=== PATIENT | male | born 1945 | race Caucasian/White ===

== ENCOUNTER 2019-03-15 10:09 | Observation (INO) | payer OTHER ==
--- OUTSIDE RECORDS SUMMARY | 2019-03-15 10:12 | XMS REPORT ---
:1945 [facility] Address [address] [place] [address] [address]. [address] [place] [address] Care Team Providers Name Role Phone HENRIQUE JIMENEZ Unavailable Unavailable Problems This patient has no known problems. Allergies, Adverse Reactions, Alerts This patient has no known allergies or adverse reactions. Medications This patient has no known medications. Encounters Start End Encounter Admission Attending Care Care Encounter Date/Time Date/Time Type Type Clinicians Facility Department ID 2018-08-24 2018-08-24 Outpatient [facility] [id number] 15:10:00 15:10:00 Results Test Description Test Time Test Comments Text Results Atomic Results Result Comments POCT-GLUCOSE METER 2018-03-26 08:05:00 Test Item Value Reference Range Comments POC-GLUCOSE METER (Ascade) (test 171 mg/dL 70-110 TESTED AT [address] jjzp=[id number]) [facility] [id number] RAD, CHEST, 2 [id number] 12:03:00Reason for Exam:->I73.89FINAL REPORT Chest, PA and lateral. History: I73.89. Comparison: .Discussion: The cardiomediastinal silhouette and pulmonary vasculature are within normal limits. The lungs are clear without evidence of consolidation or effusion. There are no acute osseous abnormalities. The soft tissues are unremarkable. IMPRESSION: No acute cardiopulmonary abnormality. Signed: Elysia Snell Verified Date/Time: 03/09/2018 12:03:03 Reading Location: [address] Radiology Reading Room [id number] 11:34:00 Test Item Value Reference Range Comments ACTIVATED CLOTTING TIME 307 sec TESTED AT [facility] [address] (Ascade) (test nrvl=775) [facility] [id number] CBC W/PLT COUNT & AUTO [id number] 07:37:00 Test Item Value Reference Range Comments WHITE BLOOD CELL COUNT (BEAKER) (test kvqc=773) 6.5 K/ L 3.5-10.5 RED BLOOD CELL COUNT (BEAKER) (test mwgo=089) 5.31 M/ L 4.63-6.08 HEMOGLOBIN (BEAKER) (test ckee=062) 14.9 GM/DL 13.7-17.5 HEMATOCRIT (BEAKER) (test yffv=207) 46.4 % 40.1-51.0 MEAN CORPUSCULAR VOLUME (BEAKER) (test pafq=161) 87.4 fL 79.0-92.2 MEAN CORPUSCULAR HEMOGLOBIN (BEAKER) (test 28.1 pg 25.7-32.2 ttef=943) MEAN CORPUSCULAR HEMOGLOBIN CONC (BEAKER) (test 32.1 GM/DL 32.3-36.5 olda=060) RED CELL DISTRIBUTION WIDTH (BEAKER) (test 15.3 % 11.6-14.4 eiyt=539) PLATELET COUNT (BEAKER) (test hnuc=439) 148 K/CU MM 150-450 MEAN PLATELET VOLUME (BEAKER) (test hozt=547) 9.9 fL 9.4-12.4 NUCLEATED RED BLOOD CELLS (BEAKER) (test 0 /100 WBC 0-0 chrw=836) NEUTROPHILS RELATIVE PERCENT (BEAKER) (test 63 % dona=626) LYMPHOCYTES RELATIVE PERCENT (BEAKER) (test 24 % zpuj=397) MONOCYTES RELATIVE PERCENT (BEAKER) (test 8 % klum=915) EOSINOPHILS RELATIVE PERCENT (BEAKER) (test 4 % xtdp=401) BASOPHILS RELATIVE PERCENT (BEAKER) (test 1 % hfkj=286) NEUTROPHILS ABSOLUTE COUNT (BEAKER) (test 4.09 K/ L 1.78-5.38 nfbl=631) LYMPHOCYTES ABSOLUTE COUNT (BEAKER) (test 1.58 K/ L 1.32-3.57 bzav=687) MONOCYTES ABSOLUTE COUNT (BEAKER) (test 0.49 K/ L 0.30-0.82 mchx=065) EOSINOPHILS ABSOLUTE COUNT (BEAKER) (test 0.28 K/ L 0.04-0.54 msob=445) BASOPHILS ABSOLUTE COUNT (BEAKER) (test 0.06 K/ L 0.01-0.08 rfpl=935) IMMATURE GRANULOCYTES-RELATIVE PERCENT (BEAKER) 1 % 0-1 (test qdah=1550) BASIC METABOLIC [id number] 07:29:00 Test Item Value Reference Range Comments SODIUM (BEAKER) (test 140 meq/L 136-145 zdtm=986) POTASSIUM (BEAKER) (test 4.2 meq/L 3.5-5.1 msym=927) CHLORIDE (BEAKER) (test 102 meq/L 98-107 ueqe=871) CO2 (BEAKER) (test 28 meq/L 22-29 uoup=385) BLOOD UREA NITROGEN 19 mg/dL 7-21 (BEAKER) (test daoo=146) CREATININE (BEAKER) (test 1.02 mg/dL 0.57-1.25 ubbx=109) GLUCOSE RANDOM (BEAKER) 117 mg/dL 70-105 (test bgrr=920) CALCIUM (BEAKER) (test 10.0 mg/dL 8.4-10.2 uern=746) EGFR (BEAKER) (test 71 mL/min/1.73 sq m ESTIMATED GFR IS NOT fakt=2776) ACCURATE CREATININE CLEARANCE IN PREDICTING GLOMERULAR FILTRATION RATE. ESTIMATED GFR IS NOT APPLICABLE FOR DIALYSIS PATIENTS. LIPID [id number] 09:48:00 Test Item Value Reference Range Comments TRIGLYCERIDES (BEAKER) (test recn=391) 103 mg/dL CHOLESTEROL (BEAKER) (test wsvd=740) 188 mg/dL HDL CHOLESTEROL (BEAKER) (test hkah=848) 62 mg/dL LDL CHOLESTEROL CALCULATED (BEAKER) (test 105 mg/dL dtcy=675) Triglyceride Reference Range: Low Risk <150 Borderline 150- 199 High Risk 200-499 Very High Risk >=500Cholesterol Reference Range: Low Risk <200 Borderline 200-239 High Risk > 240HDL Cholesterol Reference Range: Low Risk >=60 High Risk <40LDL Cholesterol Reference Range: Optimal <100 Near Optimal 100-129 Borderline 130-159 High 160-189 Very High >=190COMPREHENSIVE METABOLIC [id number] 09:48:00 Test Item Value Reference Range Comments TOTAL PROTEIN (BEAKER) 8.0 gm/dL 6.0-8.3 (test jddr=988) ALBUMIN (BEAKER) (test 4.3 g/dL 3.5-5.0 mphr=6728) ALKALINE PHOSPHATASE 63 U/L 40-150 (BEAKER) (test ytsv=577) BILIRUBIN TOTAL (BEAKER) 0.7 mg/dL 0.2-1.2 (test vqlm=030) SODIUM (BEAKER) (test 139 meq/L 136-145 hwpk=837) POTASSIUM (BEAKER) (test 4.0 meq/L 3.5-5.1 wpyo=508) CHLORIDE (BEAKER) (test 104 meq/L 98-107 gnpf=591) CO2 (BEAKER) (test 23 meq/L 22-29 ldey=079) BLOOD UREA NITROGEN 22 mg/dL 7-21 (BEAKER) (test utim=755) CREATININE (BEAKER) (test 1.10 mg/dL 0.57-1.25 quml=978) GLUCOSE RANDOM (BEAKER) 132 mg/dL 70-105 (test tmrp=272) CALCIUM (BEAKER) (test 9.8 mg/dL 8.4-10.2 fypg=184) AST (SGOT) (BEAKER) (test 13 U/L 5-34 rewz=441) ALT (SGPT) (BEAKER) (test 13 U/L 6-55 xmxs=567) EGFR (BEAKER) (test 66 mL/min/1.73 sq m ESTIMATED GFR IS NOT uqjz=3278) ACCURATE CREATININE CLEARANCE IN PREDICTING GLOMERULAR FILTRATION RATE. ESTIMATED GFR IS NOT APPLICABLE FOR DIALYSIS PATIENTS. RAD, CHEST, 2 [id number] 09:08:00Reason for Exam:->CADReason for Exam:-& gt;HTNReason for Exam:->HLDReason for Exam:->DVTReason for Exam:-> MRReason for Exam:->ABN EKGReason for Exam:->[id number] REPORT Chest, two views HISTORY: Cardiac disease COMPARISON: 01/03/2016 DISCUSSION: Lungs are grossly clear without focal consolidation. Linear atelectasis at the left lung base. Cardiomediastinal silhouette is unchanged from prior examination. Mild tortuosity and ectasia of the thoracic aorta. Degenerative changes in the spine. No pleural effusion or pneumothorax. Visualized portions of the upper abdomen are unremarkable. IMPRESSION: No significant interval change. No acute cardiopulmonary abnormality. Signed: Scott Pearce MDReport Verified Date/Time: 01/15/2017 09:08:07 Reading Location: [address] Radiology Reading Room CBC W/PLT COUNT & AUTO [id number] 08:51:00 Test Item Value Reference Range Comments WHITE BLOOD CELL COUNT (BEAKER) (test wdet=694) 6.8 K/ L 3.5-10.5 RED BLOOD CELL COUNT (BEAKER) (test utkg=185) 5.44 M/ L 4.63-6.08 HEMOGLOBIN (BEAKER) (test yqzt=332) 15.3 GM/DL 13.7-17.5 HEMATOCRIT (BEAKER) (test oijy=258) 48.0 % 40.1-51.0 MEAN CORPUSCULAR VOLUME (BEAKER) (test ndya=473) 88.2 fL 79.0-92.2 MEAN CORPUSCULAR HEMOGLOBIN (BEAKER) (test 28.1 pg 25.7-32.2 uxrn=364) MEAN CORPUSCULAR HEMOGLOBIN CONC (BEAKER) (test 31.9 GM/DL 32.3-36.5 wnhc=304) RED CELL DISTRIBUTION WIDTH (BEAKER) (test 15.9 % 11.6-14.4 jnnm=173) PLATELET COUNT (BEAKER) (test uqgz=438) 168 K/CU MM 150-450 MEAN PLATELET VOLUME (BEAKER) (test ngcv=583) 9.8 fL 9.4-12.4 NUCLEATED RED BLOOD CELLS (BEAKER) (test 0 /100 WBC 0-0 aqka=632) NEUTROPHILS RELATIVE PERCENT (BEAKER) (test 69 % wjud=995) LYMPHOCYTES RELATIVE PERCENT (BEAKER) (test 22 % uqhg=611) MONOCYTES RELATIVE PERCENT (BEAKER) (test 7 % jqjd=618) EOSINOPHILS RELATIVE PERCENT (BEAKER) (test 2 % kale=971) BASOPHILS RELATIVE PERCENT (BEAKER) (test 1 % xalu=573) NEUTROPHILS ABSOLUTE COUNT (BEAKER) (test 4.65 K/ L 1.78-5.38 jccj=207) LYMPHOCYTES ABSOLUTE COUNT (BEAKER) (test 1.50 K/ L 1.32-3.57 gple=141) MONOCYTES ABSOLUTE COUNT (BEAKER) (test 0.44 K/ L 0.30-0.82 mbwn=699) EOSINOPHILS ABSOLUTE COUNT (BEAKER) (test 0.11 K/ L 0.04-0.54 roos=540) BASOPHILS ABSOLUTE COUNT (BEAKER) (test 0.04 K/ L 0.01-0.08 hjma=854) IMMATURE GRANULOCYTES-RELATIVE PERCENT (BEAKER) 0 % 0-1 (test supk=9518)
[2019-03-15] MEDS ORDERED: GLUCAGON 1 MG/VIAL ONE ×2 (11:17→12:43)
[2019-03-15 11:40] LABS: Absolute Lymphocytes (CBC) 1.6 K/uL (0.7-4.9); Basophils % 0.8 % (0-1.3); Hematocrit 42.5 % (39.6-49.0); Lymphocytes % 25.2 % (15.3-44.8); MPV 8.8 fL (7.6-11.3); RBC Red Blood Cell Count 4.92 M/uL (4.33-5.43)
--- NOTE | 2019-03-15 14:10 | EDPHYS ---
Physician Documentation [facility] Name: John Perez Age: 74 yrs Sex: Male : 1945 Arrival Date: 03/15/2019 Time: 10:10 Bed 4 Private MD: Americo Cabral V ED Physician Alex Tucker HPI: 03/15 12:38 This 74 yrs old Male presents to ER via Ambulatory with complaints of Foreign jr8 Body In Throat - roast. 12:38 The patient or guardian reports the patient has a suspected foreign body, that has been jr8 ingested. The reported likely foreign body is piece of meat. Onset: The symptoms/episode began/occurred acutely, last night. Current symptoms: pain, in the chest. Treatment Prior to Arrival: none. The patient has experienced a previous episode. The patient has not recently seen a physician. Patient stated that he has some roast last night. Stated that he felt a piece get stuck. Unable to get it to go down. Cannot keep food or water down. Has had this once before but was able to pass it . Historical: - Allergies: 10:29 No Known Allergies; la1 - PMHx: 10:29 Diabetes - NIDDM; Hypertension; macular degeneration; Myocardial infarction; la1 - Immunization history:: Adult Immunizations up to date. - Social history:: Smoking status: Patient/guardian denies using tobacco. - Ebola Screening: : No symptoms or risks identified at this time. ROS: 12:38 Eyes: Negative for injury, pain, redness, and discharge, ENT: Negative for injury, jr8 pain, and discharge, Neck: Negative for injury, pain, and swelling, Cardiovascular: Negative for chest pain, palpitations, and edema, Respiratory: Negative for shortness of breath, cough, wheezing, and pleuritic chest pain, Abdomen/GI: Negative for abdominal pain, nausea, vomiting, diarrhea, and constipation, Back: Negative for injury and pain, MS/Extremity: Negative for injury and deformity, Skin: Negative for injury, rash, and discoloration, Neuro: Negative for headache, weakness, numbness, tingling, and seizure. Exam: 12:38 Eyes: Pupils equal round and reactive to light, extra-ocular motions intact. Lids and jr8 lashes normal. Conjunctiva and sclera are non-icteric and not injected. Cornea within normal limits. Periorbital areas with no swelling, redness, or edema. ENT: Nares patent. No nasal discharge, no septal abnormalities noted. Tympanic membranes are normal and external auditory canals are clear. Oropharynx with no redness, swelling, or masses, exudates, or evidence of obstruction, uvula midline. Mucous membranes moist. Neck: Trachea midline, no thyromegaly or masses palpated, and no cervical lymphadenopathy. Supple, full range of motion without nuchal rigidity, or vertebral point tenderness. No Meningismus. Cardiovascular: Regular rate and rhythm with a normal S1 and S2. No gallops, murmurs, or rubs. Normal PMI, no JVD. No pulse deficits. Respiratory: Lungs have equal breath sounds bilaterally, clear to auscultation and percussion. No rales, rhonchi or wheezes noted. No increased work of breathing, no retractions or nasal flaring. Abdomen/GI: Soft, non-tender, with normal bowel sounds. No distension or tympany. No guarding or rebound. No evidence of tenderness throughout. Back: No spinal tenderness. No costovertebral tenderness. Full range of motion. Skin: Warm, dry with normal turgor. Normal color with no rashes, no lesions, and no evidence of cellulitis. MS/ Extremity: Pulses equal, no cyanosis. Neurovascular intact. Full, normal range of motion. Neuro: Awake and alert, GCS 15, oriented to person, place, time, and situation. Cranial nerves II-XII grossly intact. Motor strength 5/5 in all extremities. Sensory grossly intact. Cerebellar exam normal. Normal gait. Vital Signs: 10:29 BP 143 / 68; Pulse 90; Resp 16; Temp 97.3; Pulse Ox 100% on R/A; Weight 136.08 kg; la1 Height 6 ft. 3 in. (190.50 cm); 11:52 BP 114 / 51; Pulse 87; Resp 17; Pulse Ox 96% on R/A; tw2 12:46 BP 116 / 67; Pulse 71; Resp 17; Pulse Ox 98% on R/A; tw2 13:45 BP 115 / 53; Pulse 73; Resp 17; Pulse Ox 98% on R/A; tw2 14:50 BP 128 / 73; Pulse 77; Resp 17; Pulse Ox 98% on R/A; tw2 17:49 BP 122 / 68; Pulse 68; Resp 18; Pulse Ox 97% on R/A; rv 10:29 Body Mass Index 37.50 (136.08 kg, 190.50 cm) la1 MDM: 11:09 Patient medically screened. [facility] 14:08 Data reviewed: vital signs, nurses notes, lab test result(s), EKG, radiologic studies, [facility] plain films. Data interpreted: Pulse oximetry: on room air is 98 %. Interpretation: normal. Counseling: I had a detailed discussion with the patient and/or guardian regarding: the historical points, exam findings, and any diagnostic results supporting the discharge/admit diagnosis, lab results, radiology results, the need for further work-up and treatment in the hospital. ED course: Dr. Kirkland accepted patient for consult and would do EGD in the AM . 03/15 11:12 Order name: CBC with Diff; Complete Time: 11:40 [facility] 03/15 11:12 Order name: Basic Metabolic Panel; Complete Time: 12:02 [facility] 03/15 14:38 Order name: XRAY Chest (1 view); Complete Time: 15:23 [facility] 03/15 11:12 Order name: IV; Complete Time: 11:24 [facility] 03/15 14:38 Order name: EKG; Complete Time: 14:39 [facility] 03/15 14:38 Order name: EKG - Nurse/Tech; Complete Time: 15:01 [facility] 03/15 15:50 Order name: CONS Physician Consult EDMS Administered Medications: 11:26 Drug: Glucagon 1 mg Route: IVP; Site: right forearm; tw2 12:42 Follow up: Response: No adverse reaction; No change in condition tw2 12:45 Drug: Glucagon 1 mg Route: IVP; Site: right forearm; tw2 15:02 Follow up: Response: No adverse reaction; No change in condition tw2 15:30 Drug: fentaNYL (PF) 50 mcg Route: IVP; Site: left forearm; tw2 Disposition: 18:21 Co-signature as Attending Physician, Alex Tucker MD Did not see or evaluate patient. ps1 Signing chart for administrative purposes. Not an endorsement of care provided. . Disposition: 03/15/19 14:09 Hospitalization ordered by Americo Cabral for Observation. Preliminary diagnosis is Foreign body in esophagus. - Bed requested for Telemetry/MedSurg (observation). - Status is Observation. rv - Condition is Stable. - Problem is new. - Symptoms are unchanged. UTI on Admission? No Signatures: Dispatcher [employer] EDMS Juliana Francisco, RN RN dw Tiffanie Sparks RN RN ss Dejuan Lee, LETTY PA jr8 Ramses Werner, RN RN la1 Veronica Monk, RN RN tw2 Nadira Raphael RN RN jl7 Alex Tucker MD MD ps1 Keaton Ambrosio, RN RN rv Corrections: (The following items were deleted from the chart) 17:32 14:09 Hospitalization Ordered by Americo Cabral MD for Observation. Preliminary diagnosis dw is Foreign body in esophagus. Bed requested for Telemetry/MedSurg (observation). Status is Observation. Condition is Stable. Problem is new. Symptoms are unchanged. UTI on Admission? No. jr8 17:32 17:32 03/15/2019 14:09 Hospitalization Ordered by Americo Cabral MD for Observation. ss Preliminary diagnosis is Foreign body in esophagus. Bed requested for Telemetry/MedSurg (observation). Status is Observation. Condition is Stable. Problem is new. Symptoms are unchanged. UTI on Admission? No. dw 17:50 17:32 03/15/2019 14:09 Hospitalization Ordered by Americo Cabral MD for Observation. rv Preliminary diagnosis is Foreign body in esophagus. Bed requested for Telemetry/MedSurg (observation). Status is Observation. Condition is Stable. Problem is new. Symptoms are unchanged. UTI on Admission? No. ss
--- NOTE | 2019-03-15 14:10 | ER ---
Nurse's Notes [facility] Name: John Perez Age: 74 yrs Sex: Male : 1945 Arrival Date: 03/15/2019 Time: 10:10 Bed 4 Private MD: Americo Cabral V Diagnosis: Foreign body in esophagus Presentation: 03/15 10:27 Presenting complaint: Patient states: I have had a piece of roast stuck in my throat la1 since yesterday, I can drink water but barely. Transition of care: patient was not received from another setting of care. Onset of symptoms was March 15, 2019. Risk Assessment: Do you want to hurt yourself or someone else? Patient reports no desire to harm self or others. Initial Sepsis Screen: Does the patient meet any 2 criteria? No. Patient's initial sepsis screen is negative. Does the patient have a suspected source of infection? No. Patient's initial sepsis screen is negative. Care prior to arrival: None. 10:27 Method Of Arrival: Ambulatory la1 10:27 Acuity: ZULEMA 3 la1 Historical: - Allergies: 10:29 No Known Allergies; la1 - PMHx: 10:29 Diabetes - NIDDM; Hypertension; macular degeneration; Myocardial infarction; la1 - Immunization history:: Adult Immunizations up to date. - Social history:: Smoking status: Patient/guardian denies using tobacco. - Ebola Screening: : No symptoms or risks identified at this time. Screenin:01 Abuse screen: Denies threats or abuse. Nutritional screening: No deficits noted. tw2 Tuberculosis screening: No symptoms or risk factors identified. Fall Risk None identified. Assessment: 11:07 General: Appears in no apparent distress. obese, well groomed, Behavior is calm, tw2 cooperative, appropriate for age. Pain: Denies pain. Neuro: Level of Consciousness is awake, alert, obeys commands, Oriented to person, place, time, situation. Cardiovascular: Heart tones S1 S2 Patient's skin is warm and dry. Respiratory: Airway is patent Respiratory effort is even, unlabored, Respiratory pattern is regular, symmetrical. GI: Abdomen is round non-distended, obese, Bowel sounds present X 4 quads. : No signs and/or symptoms were reported regarding the genitourinary system. EENT: Reports difficulty swallowing "1 days now this roast is stuck in my throat and i can barely get my pills down". Derm: No signs and/or symptoms reported regarding the dermatologic system. Musculoskeletal: Range of motion: intact in all extremities. 11:09 Reassessment: provider at bedside at this time. tw2 11:52 Reassessment: Patient appears in no apparent distress at this time. Patient and/or tw2 family updated on plan of care and expected duration. Pain level reassessed. Patient is alert, oriented x 3, equal unlabored respirations, skin warm/dry/pink. 12:46 Reassessment: No changes from previously documented assessment. Patient and/or family tw2 updated on plan of care and expected duration. Pain level reassessed. Patient is alert, oriented x 3, equal unlabored respirations, skin warm/dry/pink. 13:44 Reassessment: Patient appears in no apparent distress at this time. No changes from tw2 previously documented assessment. Patient and/or family updated on plan of care and expected duration. Pain level reassessed. Patient is alert, oriented x 3, equal unlabored respirations, skin warm/dry/pink. 14:50 Reassessment: Patient appears in no apparent distress at this time. No changes from tw2 previously documented assessment. Patient and/or family updated on plan of care and expected duration. Pain level reassessed. Patient is alert, oriented x 3, equal unlabored respirations, skin warm/dry/pink. 15:21 Reassessment: Patient appears in no apparent distress at this time. No changes from tw2 previously documented assessment. Patient and/or family updated on plan of care and expected duration. Pain level reassessed. Patient is alert, oriented x 3, equal unlabored respirations, skin warm/dry/pink. 15:32 Reassessment: Pt c/o increased epigastric pain, ERP notified, see MAR for orders. jl7 17:33 Reassessment: nurse unavailable to take report at this time. Vital Signs: 10:29 BP 143 / 68; Pulse 90; Resp 16; Temp 97.3; Pulse Ox 100% on R/A; Weight 136.08 kg; la1 Height 6 ft. 3 in. (190.50 cm); 11:52 BP 114 / 51; Pulse 87; Resp 17; Pulse Ox 96% on R/A; tw2 12:46 BP 116 / 67; Pulse 71; Resp 17; Pulse Ox 98% on R/A; tw2 13:45 BP 115 / 53; Pulse 73; Resp 17; Pulse Ox 98% on R/A; tw2 14:50 BP 128 / 73; Pulse 77; Resp 17; Pulse Ox 98% on R/A; tw2 17:49 BP 122 / 68; Pulse 68; Resp 18; Pulse Ox 97% on R/A; rv 10:29 Body Mass Index 37.50 (136.08 kg, 190.50 cm) la1 ED Course: 10:10 Patient arrived in ED. as 10:11 Americo Cabral MD is Private Physician. as 10:28 Triage completed. la1 10:29 Arm band placed on right wrist. la1 10:53 Dejuan Lee PA is PHCP. jr8 10:54 Alex Tucker MD is Attending Physician. jr8 11:01 Veronica Monk, MERCEDES is Primary Nurse. tw2 11:01 Bed in low position. Call light in reach. tw2 11:25 Inserted saline lock: 22 gauge in right forearm, using aseptic technique. Blood tw2 collected. 13:19 IV discontinued, intact, bleeding controlled, No redness/swelling at site. Pressure tw2 dressing applied, pt requested IV discontinued at this time. 14:08 Americo Cabral MD is Hospitalizing Provider. jr8 14:58 XRAY Chest (1 view) In Process Unspecified. EDMS 15:01 Missed attempt(s): 22 gauge in left forearm. Bleeding controlled, band aid applied, tw2 catheter tip intact. Missed attempt(s): 22 gauge in left antecubital area. Bleeding controlled, band aid applied, catheter tip intact. Missed attempt(s): 22 gauge in left antecubital area. Bleeding controlled, band aid applied, catheter tip intact. 15:05 EKG done, by two way radio technician. reviewed by Dejuan SAENZ. sm3 15:15 Missed attempt(s): 22 gauge in left wrist. Bleeding controlled, band aid applied, jl7 catheter tip intact. 15:20 Missed attempt(s): 20 gauge in right wrist. Bleeding controlled, band aid applied, jl7 catheter tip intact. 15:25 Inserted saline lock: 22 gauge in left forearm, using aseptic technique. jl7 16:17 Report given to MERCEDES Waddell. tw2 17:50 No provider procedures requiring assistance completed. Patient admitted, IV remains in rv place. Administered Medications: 11:26 Drug: Glucagon 1 mg Route: IVP; Site: right forearm; tw2 12:42 Follow up: Response: No adverse reaction; No change in condition tw2 12:45 Drug: Glucagon 1 mg Route: IVP; Site: right forearm; tw2 15:02 Follow up: Response: No adverse reaction; No change in condition tw2 15:30 Drug: fentaNYL (PF) 50 mcg Route: IVP; Site: left forearm; tw2 Outcome: 14:09 Decision to Hospitalize by Provider. jr8 17:50 Admitted to Tele accompanied by tech, room 406, with chart, Report called to VIVIEN LONG rv 17:50 Condition: good 17:50 Discharge instructions given to patient, family, Instructed on the need for admit. 17:50 Patient left the ED. rv Signatures: Dispatcher [employer] EDMS Sheyla Jacques Shelby, RN RN Dejuan Caro PA PA jr8 Ramses Werner RN RN la1 Veronica Monk RN RN tw2 Nadira Raphael RN RN jl7 Lashawn Chávez 3 Keaton Ambrosio, RN RN rv Corrections: (The following items were deleted from the chart) 11:10 11:07 EENT: Reports difficulty swallowing "2 days now this roast is stuck in my throat tw2 and i can barely get my pills down" tw2
--- NOTE | 2019-03-15 15:10 | RAD REPORT ---
EXAM DESCRIPTION: RAD - Chest Single View - 03/15/2019 2:58 pm CLINICAL HISTORY: pre op Chest pain. COMPARISON: CHEST PA AND LAT 2 VIEW dated 03/06/2010 FINDINGS: Portable technique limits examination quality. The lungs are grossly clear. The heart is normal in size. No displaced fractures. IMPRESSION: No acute intrathoracic process suspected.
[2019-03-15] MEDS ORDERED: FENTANYL CITR 100 MCG/2 ML ONE (15:30)
--- NOTE | 2019-03-15 16:28 | EKG ---
Test Date: 2019-03-15 Test Time: 15:00:50 Welfare Officer: ARACELI MEASUREMENT RESULTS: Intervals: Rate: 74 DE: 172 QRSD: 108 QT: 392 QTc: 435 [place]: P: 25 DE: 172 QRS: 27 T: 22 INTERPRETIVE STATEMENTS: Normal sinus rhythm Inferior infarct, age undetermined Cannot rule out Anterior infarct, age undetermined Abnormal ECG Compared to ECG 03/06/2010 11:25:18 Ventricular premature complex(es) no longer present Myocardial infarct finding still present Electronically Signed On 03-15-19 16:27:46 PAPER SUPERVISOR by Horacio Kilgore
[2019-03-15] MEDS ORDERED: MORPHINE 2 MG/ML SYR IV PRN (18:29)
[2019-03-15] MEDS ORDERED: ONDANSETRON 4 MG/2 ML VIAL IV PRN (18:29)
[2019-03-15] MEDS ORDERED: NA CHLORIDE 0.9% 1,000 ML IV SCH (18:29)
--- NOTE | 2019-03-15 18:41 | P.SSS ---
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 HE HAD HAD PVD AND STENTS. HE ATE BEEF ROAST AND IT IS STUCK IN ESOPHAGUS. DR. RECINOS WILL DO PROCEDURE TO REMOVE BEEF AFTER DR. WRIGHT SEES HIM AND CERTIFIES CLEARANCE. Allergies No Known Allergies Allergy (Verified 03/15/19 18:20) Home Medications: Aspirin [Aspirin EC 81 MG] 81 mg PO DAILY 03/15/19 Finasteride [Proscar*] 5 mg PO DAILY 03/15/19 Lisinopril 10 mg PO DAILY 03/15/19 Metformin ER [Glucophage ER] 1,000 mg PO BIDWM 03/15/19 Metoprolol Tartrate [Lopressor] 25 mg PO DAILY 03/15/19 Pravastatin Sodium 80 mg PO DAILY AT SUPPER 03/15/19 Rivaroxaban [Xarelto] 20 mg PO DAILY 03/15/19 Vit C/E/Zn/Coppr/Lutein/Zeaxan [Preservision Areds 2 Softgel] 1 each PO BID Review of Systems 10-point ROS is otherwise unremarkable Physical Examination - Physical Exam General: Alert, In no apparent distress, Obese HEENT: Atraumatic, PERRLA, Mucous membr. moist/pink, EOMI, Sclerae nonicteric Neck: Supple, 2+ carotid pulse no bruit, No LAD, Without JVD or thyroid abnormality Respiratory: Clear to auscultation bilaterally, Normal air movement Cardiovascular: Regular rate/rhythm, Normal S1 S2 Gastrointestinal: Normal bowel sounds, No tenderness Musculoskeletal: No tenderness Integumentary: No rashes Neurological: Normal gait, Normal speech, Normal strength at 5/5 x4 extr, Normal tone, Normal affect Lymphatics: No axilla or inguinal lymphadenopathy - Studies Laboratory Data (last 24 hrs) 03/15/19 11:25: Sodium 138, Potassium 4.0, BUN 19 H, Creatinine 1.11, Glucose 133 H 03/15/19 11:25: WBC 6.5, Hgb 14.8, Hct 42.5, Plt Count 135 L - Diagnosis (Problem(s)) (1) Esophageal foreign body Current Visit: Yes Status: Acute Plan: DR RECINOS NEEDS CARDIOLOGY CLEARANCE. HE IS MEDICALLY STABLE WITH MILD RISK. THIS IS AN OUTPATIENT PROCEDRUE. WE HAD TO ADMIT HIM. IV FLUIDS GENTLE Qualifiers: Encounter type: initial encounter Qualified Code(s): T18.108A - Unspecified foreign body in esophagus causing other injury, initial encounter - Disposition Disposition: ROUTINE DISCHARGE
[2019-03-15 18:58] VITALS: BMI 36.3
[2019-03-15] MEDS: NACHLORIDE 0.45% 1,000 ML IV SCH (19:15)
[2019-03-15] MEDS: ATORVASTATIN 10 MG TAB PO SCH ×2 (21:00→21:47)
[2019-03-15] MEDS ORDERED: D50W 25 GM/50 ML SYRINGE/VIAL IV PRN (21:13)
[2019-03-15] MEDS ORDERED: GLUCAGON 1 MG/VIAL IM PRN (21:13)
[2019-03-15] MEDS: METOPROLOL TARTRATE 5 MG/5 ML INJ IV SCH (21:30)
[2019-03-15 22:38] LABS: Urine Appearance CLEAR; Urine Bilirubin NEGATIVE (NEG); Urine Blood NEGATIVE (NEG); Urine Color YELLOW; Urine Glucose NEGATIVE (NEG); Urine Protein NEGATIVE (NEG)
[2019-03-15 22:40] LABS: Urine Microscopic Reflex ORDER UMIC
[2019-03-15 23:52] LABS: Urine Culture Reflex Order REFLEXED
[2019-03-15 23:54] LABS: Urine Bacteria <20 /HPF (NONE SEEN); Urine RBC <5 /HPF (NONE SEEN); Urine Urothelial Cells <5 /HPF (NONE SEEN)
[2019-03-16 04:42] LABS: Basophils % 0.8 % (0-1.3); Hematocrit 45.4 % (39.6-49.0); Lymphocytes % 34.8 % (15.3-44.8); MPV 8.5 fL (7.6-11.3); RBC Red Blood Cell Count 5.19 M/uL (4.33-5.43)
[2019-03-16] MEDS: METOPROLOL TARTRATE 5 MG/5 ML INJ IV SCH ×3 (04:45→16:30)
[2019-03-16 04:59] LABS: Potassium 3.9 mmol/L (3.5-5.1)
[2019-03-16] MEDS: INSULIN -REGULAR HUMAN 50 UNIT/0.5 ML ML IV SCH ×3 (07:30→16:30)
[2019-03-16] MEDS: METFORMIN ER 500 MG TAB PO SCH ×2 (08:00→17:00)
[2019-03-16] MEDS ORDERED: ASPIRIN EC 81 MG TAB PO SCH (09:00)
[2019-03-16] MEDS ORDERED: FINASTERIDE 5 MG TAB PO SCH (09:00)
[2019-03-16] MEDS ORDERED: lisinopriL 10 MG TAB PO SCH (09:00)
[2019-03-16] MEDS ORDERED: METOPROLOL TAR 25 MG TAB PO SCH (09:00)
--- NOTE | 2019-03-16 12:35 | CON ---
Date of Consultation: 03/16/[address] Cabral on 03/15/2019. I saw the patient on 03/16/2019. Reason For Consultation: For cardiac clearance for an endoscopy to remove the foreign body from the esophagus. History Of Present Illness: Mr. Perez is 74. Has a history of diabetes, hypertension, chronic a trial fibrillation. Has a history of CAD. He sees in [place] for that. He recently had a negative stress test, negative echo. He has no cardiac symptoms at this point. Came in with a foreign body, was actually a piece of that was stuck in his esophagus. Endoscopy is plan isacc today. Xarelto has been held. No cardiac complaints. Past Medical History: As stated above. Allergies: NONE. Review of Systems: Negative. Social History: Negative. Family History: Negative. Medications: Include aspirin, , metoprolol, Xarelto, lisinopril, metformin, and Proscar. Physical Examination: General: He weighed 190 pounds. No acute distress. Vital Signs: Stable. Afebrile. Sinus rhythm. HEENT: Negative. Neck: Supple with no bruit. Chest: Clear to auscultation and percussion. Cardiac: Revealed a regular rhythm and rate. No murmurs, gallops, or rubs. Abdomen: Benign. Extremities: Revealed no clubbing, cyanosis, or edema. Diagnostic Data: All within normal limits. His EKG showed possible old MO. Chest x-ray is negative . Troponin is negative. Impression And Plan: 1.Patient with foreign body, specifically a piece of stuck in his esophagus needing an en doscopy. Xarelto has been held. Has no cardiac symptoms. EKG showed no acute changes. No clinical evidence of coronary artery disease or congestive heart failure by exam or history. He is cleared f or his endoscopy. 2.History of diabetes, well controlled. 3.History of hypertension, well controlled. 4.History of atrial fibrillation, well controlled on metoprolol and Xarelto. 5.History of coronary artery disease that is stable. I will continue to follow Mr. Perez pregine. The case was discussed with Dr. Cabral. NB/FARHEEN Voice ID: [id number] Report ID: [id number]
[2019-03-16] MEDS: NACHLORIDE 0.45% 1,000 ML IV SCH (15:00)
[2019-03-16] MEDS ORDERED: RIVAROXABAN 20 MG TABLET PO SCH (17:00)
[2019-03-16] MEDS ORDERED: NA CHLORIDE 0.9% 500 ML ONE (17:34)
[2019-03-16] MEDS ORDERED: PROPOFOL 200 MG/20 ML VIAL IV ONE (18:04)
--- NOTE | 2019-03-16 18:23 | ENDO RPT ---
[address], [address] EGD PROCEDURE REPORT EXAM DATE: 03/16/2019 PATIENT NAME: John Perez MR#: [id number] BIRTHDATE: 1945 ATTENDING: Alexander [address]land Dr STATUS: inpatient [facility] SPECIALIST: Nichole Chow RN and Martita Dahl INDICATIONS: The patient is a 74 yr old Male here for an EGD due to dysphagia PROCEDURE PERFORMED: EGD MEDICATIONS: Per Anesthesia. TOPICAL ANESTHETIC: none CONSENT: The patient understands the risks and benefits of the procedure and understands that these risks include, but are not limited to: sedation, allergic reaction, infection, perforation and/or bleeding. Alternative means of evaluation and treatment include, among others: physical exam, x-rays, and/or surgical intervention. The patient elects to proceed with this endoscopic procedure. DESCRIPTION OF PROCEDURE: During intra-op preparation period all mechanical medical equipment was checked for proper function. Hand hygiene and appropriate measures for infection prevention was taken. Procedure, possible complications, and alternatives including but not limited to the possibility of bleeding, perforation, tear, infection, sepsis, need for surgery, need for blood transfusion, and anesthesia related complications were explained to the patient. After the risks, benefits and alternatives of the procedure were thoroughly explained, Informed consent was verified, confirmed and timeout was successfully executed by the treatment team. The patient was placed in the left lateral position. The patient was anesthetized with topical anesthesia. Through the anesthetized oropharyngeal area, the scope was passed without any difficulty. The [id number] ([id number]) endoscope was introduced through the mouth and advanced to the second portion of the duodenum. Retroflexed views revealed no abnormalities. The gastroscope was then slowly withdrawn and removed. Multiple (2) ulcers were found in the lower esophagus. A mild stricture was found in the lower esophagus, easily passed with endoscope, no food bolus present . ADVERSE EVENTS: There were no complications. esophagus 2. Mild stenosis / stricture in the lower esophagus, easily passed with endoscope, no food bolus present RECOMMENDATIONS: 1. acid suppression therapy 2. follow-up of helicobacter pylori status, treat if indicated REPEAT EXAM: Alexander Kirkland Dr eSigned: Alexander Kirkland Dr 03/16/2019 6:23 PM cc: CPT CODES: ICD9 CODES: PATIENT NAME: Lissettechaucatrina John PrimoRobin MR#: [id number]
[2019-03-16 18:48] VITALS: BP 132/66; TEMP 97.5; O2SAT 93
--- NOTE | 2019-03-17 07:30 | CON ---
Date of Consultation: 03/16/2019 Reason For Consultation: Dysphagia with possible food bolus impaction in esophagus. History Of Present Illness: The patient is a 74-year-old white male with history of diabetes, hypert ension, coronary artery disease, status post VA, status post multiple cardiac stents patient says brigid roximately 10 to 20 atrial fibrillation, obstructive sleep apnea, BPH, obesity and total right knee r eplacement, and macular degeneration. Patient presented to the hospital secondary to possible foreig n body in the esophagus with dysphagia after eating hamburger helper. Said he is at home by himself. His has gone to [place] where his grandchildren are to visit children there. Patient states he was eating a hamburger helper and the food became stuck, could not swallow solids or liquids at that time, came to the emergency room. Patient was given glucagon and other medications, finally was abl e to swallow liquids, admitted to the hospital for further evaluation. Patient reports history of ga stric reflux disease over the past 5 years. He had 1 event of dysphagia approximately 2 years ago, w hich spontaneously resolved in [place], [place]. Past Medical History: Significant for diabetes, hypertension, coronary artery disease, status post m yocardial infarction, atrial fibrillation on Xarelto, multiple cardiac stents patient says 10 to 20, obstructive sleep apnea, benign prostatic hypertrophy, macular degeneration, obesity, total right kne e replacement. Medications: See list. Allergies: NONE. Social History: . He has children, who live in [place]. Tobacco, quit in 1993 with myocardia l infarction. Alcohol; rare now, but heavy in the past, cut down back in 1993. Family History: Father of myocardial infarction. Mother of Parkinson disease. He is orig inally from [facility] [place]. Medications: Include aspirin, metoprolol, Xarelto, lisinopril, metformin, and Proscar. Allergies: NKDA. Review of Systems: Patient has dysphagia to solids, reflux disease. He denies any chest pain, shortness of breath, seiz ure, syncope, lower extremity edema, muscle aches joint aches, backaches, melena, hematochezia, hemat emesis, coffee-ground emesis, hemoptysis, hematuria, dysuria, polydipsia. No depression, anxiety. Physical Examination: Vital Signs: The patient is 6 foot 3 inches and 290 pounds. BMI of 36.3 kg/sq m. Temperature 97.6 degrees Fahrenheit, pulse 90, respirations 18, blood pressure 120/51, O2 saturation 95%. Laboratory Data: Patient has a white count of 8.5, hemoglobin of 15.1, hematocrit 45, MCV of 88, janes telet count of 448, polys of 55%, lymphocytes of 35%, monocytes 8%, eosinophils 2%. Patient has a so dium of 139, potassium 3.9, chloride 103, bicarb of 31, BUN of 18, creatinine of 1.1, glucose 110, ca lcium 9.2. UA; 1+ ketones, 3+ leukocyte esterase, 10 to 50 white blood cells, less than 5 squamous e pithelial cells. No bacteria. Impression: 1.Dysphagia to solids and upper chest with possible esophageal food impaction after eating hamburger helper yesterday, came to the emergency room with dysphagia to solids and liquids, but finally with glucagon therapy, he was able to swallow liquids, but no solids, had 1 of them in approximately 2 yea rs ago in [place], [place], which spontaneously resolved. 2.History of gastroesophageal reflux disease for 5 years. 3.History of diabetes, hypertension, coronary artery disease., status post myocardial infarction, ca rdiac stents 10 to 20, atrial fibrillation, obstructive sleep apnea, benign prostatic hypertrophy, ob esity, and right total knee replacement. Recommendations: 1.To proceed with EGD. 2.Keep patient n.p.o. RADHA/FARHEEN Voice ID: [id number] Report ID: [id number]
== END 2019-03-16 19:15 | disposition home or self-care (01) ==
LOC: ER 10:09 → ERHOLD 15:49 → 4TH 17:42
PROVIDERS: ADMIT Internal Medicine; ATTEND Internal Medicine
PROC: 0DJ08ZZ Inspection of Upper Intestinal Tract, Via Natural or Artificial Opening Endoscopic (ICD-10-PCS; principal; 2019-03-16 18:00)
DX: T18.128A Food in esophagus causing other injury, initial encounter (principal); K22.10 Ulcer of esophagus without bleeding; K22.2 Esophageal obstruction; E11.9 Type 2 diabetes mellitus without complications; I10 Essential (primary) hypertension; I25.10 Atherosclerotic heart disease of native coronary artery without angina pectoris; Z95.5 Presence of coronary angioplasty implant and graft; G47.33 Obstructive sleep apnea (adult) (pediatric); N40.0 Benign prostatic hyperplasia without lower urinary tract symptoms; E66.9 Obesity, unspecified; Z68.36 Body mass index [BMI] 36.0-36.9, adult; Z96.651 Presence of right artificial knee joint; Z79.82 Long term (current) use of aspirin
CPT/HCPCS: 93005; 87088; 85025 ×2; 87086; 80048 ×2; 36415; 82947 ×4; 71045; 94660; 99285; 43235; J2704; J1610 ×2; J3010; J2270; G0378 ×4; J7040; 81003; 81015

== ENCOUNTER 2020-05-04 10:11 | Day surgery (SDC) | payer OTHER ==
--- OUTSIDE RECORDS SUMMARY | 2020-05-04 10:15 | XMS REPORT | Clinical Summary ---
:1945 Author Organization [facility] Address [address] [place] [address] Care Team Providers Name Role Phone Justine Cabral Primary Care Provider Allergies No Known Allergies Medications Medication Sig Dispensed Refills Start Date End Date Status aspirin 81 mg Tab Take by mouth. 0 Active tamsulosin (FLOMAX) Take 0.4 mg by 0 Active 0.4 mg Cp24 24 hr mouth daily. capsule metFORMIN (GLUMETZA) Take 1,000 mg by 0 Active 1000 MG (MOD) 24 hr mouth 2 (two) times tablet daily with breakfast and dinner. finasteride (PROSCAR) Take 5 mg by mouth 0 Active 5 mg tablet daily. pravastatin Take 80 mg by mouth 0 Active (PRAVACHOL) 40 MG daily . tablet torsemide (DEMADEX) Take 10 mg by mouth 0 Active 10 MG tablet daily as needed Has been out of rx last few days . metoprolol Take 25 mg by mouth 0 Active (TOPROL-XL) 25 MG 24 daily. hr tablet lisinopril Take 10 mg by mouth 0 Active (PRINIVIL,ZESTRIL) 20 daily . MG tablet rivaroxaban (XARELTO) Take 20 mg by mouth 0 Active 15 mg Tab tablet daily with dinner . vit Take by mouth 2 0 Acti ve C/E/Zn/coppr/lutein/z (two) times daily. 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 Family History Medical History Relation Name Comments Coronary artery disease Father of AMI postoperatively Lung cancer Maternal Grandfather Parkinsonism Mother Diabetes Sister Relation Name Status Comments Father Maternal Grandfather Mother Sister Social History Tobacco Use Types Packs/Day Years Used Date Former Smoker Smokeless Tobacco: Never Used Comments: Quit 24.5 years ago Alcohol Use Drinks/Week oz/Week Comments No Sex Assigned at Date Recorded Not on file Last Filed Vital Signs Not on file Plan of Treatment Health Maintenance Due Date Last Done Comments PNEUMOCOCCAL 65+ YRS (1 of 1 - [id number]) 01/21/2008 MEDICARE ANNUAL WELLNESS (YEAR 2 or FIRST YEAR if no 2009 IPPE) INFLUENZA VACCINE (#1) 2019 Results Not on fileafter 05/04/2019 Insurance Payer Benefit Plan / Subscriber ID Effective Dates Phone Addre ss Type Group MEDICARE MEDICARE A B [id number] 2008-Prese Medicare nt [facility] [id number] 2010-[facility] t Advance Directives For more information, please contact: [phone] Type Date Recorded Patient E Commerce Marketing Manager Explanati on Advance Directives and Living 02/27/2017 12:00 AM Will Power of Civil Estimator 02/27/2017 12:00 AM Code Status Date Activated Date Inactivated Comments Full Code 03/26/2018 6:30 AM This code status was determined by: Patient Full Code 02/27/2017 6:19 AM 02/27/2017 9:38 PM This code status was determined by: Patient Full Code 01/12/2015 6:08 AM 01/12/2015 8:36 PM This code status was determined by: Patient Code ONE 04/15/2013 7:23 AM 04/15/2013 7:53 PM All poss ible means of support including;cardia c massage, mechanical venti lation, and defibrillation w ill be used to support life.
--- OUTSIDE RECORDS SUMMARY | 2020-05-04 10:15 | XMS REPORT | Continuity of Care Document ---
:1945 Author Organization [facility] t Address [facility] [address]. [address] [place] [address] Care Team Providers Name Role Phone Justine Cabral Primary Care Physician LISA JIMENEZ Attending Clinician Unavailable LISA JIMENEZ Admitting Clinician Unavailable Problems Condition Condition Condition Status Onset Resolution Last Treating Co mments Source Name Details Category Date Date Treatment Clinician Date Chest pain Chest pain Disease Active 2016-[address] 04-29 - 00:00: Medical 00 Center CAD CAD Disease Active 2012-04 Overview: [facility] (coronary (coronary 06-16 [place] - artery artery 00:00: AMI/PCI Medical disease) disease) 00 RCA; Center 02/1994 Stent RCA; 10/2002 Stent LAD; & Mid Circ; 06/2003 Stent x 2 prox RCA & stent distal RCA; 12/2003 Cardiac Cath; 06/2006 stent RCA; 07/2007 stent RCA; 01/2011 stent prox/dist al RCA; 03/01 stent LAD; 01/2012 stent RCA; 03/2012 stent LAD; 04/15/13 3.0x16 mm Promus Premier ISR RCA; 01/12/15 Cardiac Cath: Med Mgmt PAD PAD Disease Active Overview: [facility] (periphera (periphera 01/12/15 L u[place] - l artery l artery Bilateral Med ical disease) disease) LE bolus Cent er jackie: Lutonix 6x80 mm drug coated balloon 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 Family History Family Member Diagnosis Comments Start Date Stop Date Source Natural father Coronary artery [facility] Maternal grandfather Lung cancer [facility] Natural mother Parkinsonism [facility] Natural sister Diabetes [facility] Social History Social Habit Start Date Stop Date Quantity Comments Source Sex Assigned At [facility] Tobacco use and 2018-03-29 2018-03-29 Never used [facility] - exposure 00:00:00 00:00:00 [facility] Alcohol intake 2018-03-29 2018-03-29 Current [facility] - 00:00:00 00:00:00 non-drinker of Medical Ce nter alcohol (finding) Tobacco Comment 2018-03-26 2018-03-26 Quit 24.5 years [facility] 00:00:00 00:00:00 ago [facility] Smoking Status Start Date Stop Date Source Former smoker 2018-03-29 00:00:00 2018-03-29 00:00:00 [facility] Medications Ordered Filled Start Stop Current Ordering Indication Dosage Frequency Signature Comments Components Source Medication Medication Date Date Medication? Clinician (SIG) Name Name aspirin 81 2017-04 Yes Take by [facility] mg Tab 2-06 [facility] - 15:21: Medical 02 [place] tamsulosin 2017-04 Yes .4mg QD Take 0.[address] [facility] (FLOMAX) 2-06 mg by [facility] - 0.4 mg Cp24 15:21: mouth Medic al 24 hr 02 daily. [place] capsule metFORMIN 2017-04 Yes 1000mg Take 1,[address] [facility] (GLUMETZA) 2-06 mg by [facility] - 1000 MG 15:21: mouth 2 Medical (MOD) 24 hr 02 (two) [place] tablet times daily with breakfast and dinner. finasteride 2017-04 Yes 5mg QD Take [address] (PROSCAR) 5 2-06 by mouth Luke s - mg tablet 15:21: daily. Medica l 02 [place] pravastatin 2017-04 Yes 80mg QD Take [address] [facility] (PRAVACHOL) 2-06 by mouth Luke s - 40 MG 15:21: daily . Medical tablet 02 [place] torsemide 2017-04 Yes 10mg Take [address] (DEMADEX) 2-06 by mouth [facility] - 10 MG 15:21: daily as Medical tablet 02 needed Has Center been out of rx last few days . metoprolol 2017-04 Yes 25mg QD Take [address] (TOPROL-XL) 2-06 by mouth Luke s - 25 MG 24 hr 15:21: daily. Medi laurie tablet 02 [place] lisinopril 2017-04 Yes 10mg QD Take [address] (PRINIVIL,Z 2-06 by mouth Luke s - ESTRIL) 20 15:21: daily . Medi laurie MG tablet 02 [place] rivaroxaban 2017-04 Yes 20mg Take [address] [facility] (XARELTO) 2-06 by mouth [facility]ukes - 15 mg Tab 15:21: daily with Me dical tablet 02 dinner . [place] vit 2017-04 Yes Q.5D Take by [facility] C/E/Zn/eris 2-06 mouth 2 [facility] - r/lutein/ze 15:21: (two) Medic al axan 02 times Center (PRESERVISI daily. ON AREDS-2 ORAL) Procedures This patient has no known procedures. Plan of Care Planned Activity Planned Date Details Comments Source Future Scheduled 2019-12-21 INFLUENZA VACCINE (#1) [facility] 00:00:00 [code = INFLUENZA Medical Ce nter VACCINE (#1)] Future Scheduled [address] [facility] - Test 00:00:00 WELLNESS (YEAR 2 or Medical Center FIRST YEAR if no IPPE) [code = MEDICARE ANNUAL WELLNESS (YEAR 2 or FIRST YEAR if no IPPE)] Future Scheduled 2008-01-21 PNEUMOCOCCAL 65+ [facility]RS [facility] - Test 00:00:00 (1 of 1 - Medical Center [id number] PCV13) [code = PNEUMOCOCCAL 65+ YRS (1 of 1 - [id number] PCV13)] Encounters Start End Encounter Admission Attending Care Care Encounter Source Date/Time Date/Time Type Type Clinicians Facility Department ID 2018-08-24 2018-08-24 Outpatient [facility] [id number] [facility] 15:10:00 15:10:00 [place]ia León [facility] l [facility] Results Test Description Test Time Test Comments Results Result Comments Source POCT-GLUCOSE METER 2018-03-26 08:05:00 Test Item Value Reference Range Interpretation Comme nts POC-GLUCOSE METER (MENDY) (test 171 mg/dL 70-110 H TESTED AT [facility] [address] [facility] code = 1538) [place] [address] RAD, CHEST, 2 [id number] 12:03:00Reason for Exam:->I73.89FINAL REPORT Chest, PA and lateral. History: I73.89. Comparison: 01/03/2016.Discussion: The cardiomediastinal silhouette and pulmonary vasculature are within normal limits. The lungs are clear without evidence of consolidation or effusion. There are no acute osseous abnormalities. The soft tissues are unremarkable. IMPRESSION: No acute cardiopulmonary abnormality. Signed: Ludwin Snell MDReport Verified Date/Time: 03/09/2018 12:03:03 Reading Location: [address] Radiology Reading Room [id number] 11:34:00 Test Item Value Reference Range Interpretation Comments ACTIVATED CLOTTING TIME 307 sec TEST ED AT [facility] 6720 (BEAKER) (test code = [place] [address]) [address] CBC W/PLT COUNT & AUTO [id number] 07:37:00 Test Item Value Reference Range Interpretation Comments WHITE BLOOD CELL COUNT (BEAKER) 6.5 K/ L 3.5-10.5 (test code = 775) RED BLOOD CELL COUNT (BEAKER) 5.31 M/ L 4.63-6.08 (test code = 761) HEMOGLOBIN (BEAKER) (test code = 14.9 GM/DL 13.7-17.5 410) HEMATOCRIT (BEAKER) (test code = 46.4 % 40.1-51.0 411) MEAN CORPUSCULAR VOLUME (BEAKER) 87.4 fL 79.0-92.2 (test code = 753) MEAN CORPUSCULAR HEMOGLOBIN 28.1 pg 25.7-32.2 (BEAKER) (test code = 751) MEAN CORPUSCULAR HEMOGLOBIN CONC 32.1 GM/DL 32.3-36.5 L (BEAKER) (test code = 752) RED CELL DISTRIBUTION WIDTH 15.3 % 11.6-14.4 H (BEAKER) (test code = 412) PLATELET COUNT (BEAKER) (test 148 K/CU MM 150-450 L code = 756) MEAN PLATELET VOLUME (BEAKER) 9.9 fL 9.4-12.4 (test code = 754) NUCLEATED RED BLOOD CELLS 0 /100 WBC 0-0 (BEAKER) (test code = 413) NEUTROPHILS RELATIVE PERCENT 63 % (BEAKER) (test code = 429) LYMPHOCYTES RELATIVE PERCENT 24 % (BEAKER) (test code = 430) MONOCYTES RELATIVE PERCENT 8 % (BEAKER) (test code = 431) EOSINOPHILS RELATIVE PERCENT 4 % (BEAKER) (test code = 432) BASOPHILS RELATIVE PERCENT 1 % (BEAKER) (test code = 437) NEUTROPHILS ABSOLUTE COUNT 4.09 K/ L 1.78-5.38 (BEAKER) (test code = 670) LYMPHOCYTES ABSOLUTE COUNT 1.58 K/ L 1.32-3.57 (BEAKER) (test code = 414) MONOCYTES ABSOLUTE COUNT (BEAKER) 0.49 K/ L 0.30-0.82 (test code = 415) EOSINOPHILS ABSOLUTE COUNT 0.28 K/ L 0.04-0.54 (BEAKER) (test code = 416) BASOPHILS ABSOLUTE COUNT (BEAKER) 0.06 K/ L 0.01-0.08 (test code = 417) IMMATURE GRANULOCYTES-RELATIVE 1 % 0-1 PERCENT (BEAKER) (test code = 2801) BASIC METABOLIC [id number] 07:29:00 Test Item Value Reference Range Interpretation Comments SODIUM (BEAKER) 140 meq/L 136-145 (test code = 381) POTASSIUM (BEAKER) 4.2 meq/L 3.5-5.1 (test code = 379) CHLORIDE (BEAKER) 102 meq/L 98-107 (test code = 382) CO2 (BEAKER) (test 28 meq/L 22-29 code = 355) BLOOD UREA NITROGEN 19 mg/dL 7-21 (BEAKER) (test code = 354) CREATININE (BEAKER) 1.02 mg/dL 0.57-1.25 (test code = 358) GLUCOSE RANDOM 117 mg/dL 70-105 H (BEAKER) (test code = 652) CALCIUM (BEAKER) 10.0 mg/dL 8.4-10.2 (test code = 697) EGFR (BEAKER) (test 71 mL/min/1.73 ESTIMA BERNICE GFR IS code = 1092) sq m NOT ACCURATE CREATININE CLEARANCE IN PREDICTING GLOMERULAR FILTRATION RATE . ESTIMATED GFR I S NOT APPLICABLE FOR DIALYSIS PATIEN TS. LIPID [id number] 09:48:00 Test Item Value Reference Range Interpretation Comments TRIGLYCERIDES (BEAKER) (test code = 103 mg/dL 540) CHOLESTEROL (BEAKER) (test code = 188 mg/dL 631) HDL CHOLESTEROL (BEAKER) (test code 62 mg/dL = 976) LDL CHOLESTEROL CALCULATED (BEAKER) 105 mg/dL (test code = 633) Triglyceride Reference Range: Low Risk <150 Borderline 150-199 High Risk 200-499 Very High Risk >=500Cholesterol Reference Range: Low Risk <200 Borderline 200-239 High Risk >240HDL Cholesterol Reference Range: Low Risk >=60 High Risk <40LDL Cholesterol Reference Range: Optimal <100 Near Optimal 100-129 Borderline 130-159 High 160-189 Very High >=190COMPREHENSIVE METABOLIC [id number] 09:48:00 Test Item Value Reference Range Interpretation Comments TOTAL PROTEIN 8.0 gm/dL 6.0-8.3 (BEAKER) (test code = 770) ALBUMIN (BEAKER) 4.3 g/dL 3.5-5.0 (test code = 1145) ALKALINE PHOSPHATASE 63 U/L 40-150 (BEAKER) (test code = 346) BILIRUBIN TOTAL 0.7 mg/dL 0.2-1.2 (BEAKER) (test code = 377) SODIUM (BEAKER) (test 139 meq/L 136-145 code = 381) POTASSIUM (BEAKER) 4.0 meq/L 3.5-5.1 (test code = 379) CHLORIDE (BEAKER) 104 meq/L 98-107 (test code = 382) CO2 (BEAKER) (test 23 meq/L 22-29 code = 355) BLOOD UREA NITROGEN 22 mg/dL 7-21 H (BEAKER) (test code = 354) CREATININE (BEAKER) 1.10 mg/dL 0.57-1.25 (test code = 358) GLUCOSE RANDOM 132 mg/dL 70-105 H (BEAKER) (test code = 652) CALCIUM (BEAKER) 9.8 mg/dL 8.4-10.2 (test code = 697) AST (SGOT) (BEAKER) 13 U/L 5-34 (test code = 353) ALT (SGPT) (BEAKER) 13 U/L 6-55 (test code = 347) EGFR (BEAKER) (test 66 mL/min/1.73 ESTIMA BERNICE GFR IS code = 1092) sq m NOT ACCURATE CREATININE CLEARANCE IN PREDICTING GLOMERULAR FILTRATION RATE . ESTIMATED GFR I S NOT APPLICABLE FOR DIALYSIS PATIEN TS. RAD, CHEST, 2 [id number] 09:08:00Reason for Exam:->CADReason for Exam:- >HTNReason for Exam:->HLDReason for Exam:->DVTReason for Exam:- >MRReason for Exam:->ABN EKGReason for Exam:->[id number] REPORT Chest, two views HISTORY: Cardiac disease COMPARISON: 01/03/2016 D ISCUSSION: Lungs are grossly clear without focal consolidation. Linear atelectasis at the left lung base. Cardiomediastinal silhouette is unchanged from prior examination. Mild tortuosity and ectasia of the thoracic aorta. Degenerative changes in the spine. No pleural effusion or pneumothorax. Visualiz ed portions of the upper abdomen are unremarkable. IMPRESSION: No significant interval change. No acute cardiopulmonary abnormality. Signed: Scott Pearce MDReport Verified Date/Time: 01/15/2017 09:08:07 Reading Location: [address] Radiology Reading Room CBC W/PLT COUNT & AUTO [id number] 08:51:00 Test Item Value Reference Range Interpretation Comments WHITE BLOOD CELL COUNT (BEAKER) 6.8 K/ L 3.5-10.5 (test code = 775) RED BLOOD CELL COUNT (BEAKER) 5.44 M/ L 4.63-6.08 (test code = 761) HEMOGLOBIN (BEAKER) (test code = 15.3 GM/DL 13.7-17.5 410) HEMATOCRIT (BEAKER) (test code = 48.0 % 40.1-51.0 411) MEAN CORPUSCULAR VOLUME (BEAKER) 88.2 fL 79.0-92.2 (test code = 753) MEAN CORPUSCULAR HEMOGLOBIN 28.1 pg 25.7-32.2 (BEAKER) (test code = 751) MEAN CORPUSCULAR HEMOGLOBIN CONC 31.9 GM/DL 32.3-36.5 L (BEAKER) (test code = 752) RED CELL DISTRIBUTION WIDTH 15.9 % 11.6-14.4 H (BEAKER) (test code = 412) PLATELET COUNT (BEAKER) (test 168 K/CU MM 150-450 code = 756) MEAN PLATELET VOLUME (BEAKER) 9.8 fL 9.4-12.4 (test code = 754) NUCLEATED RED BLOOD CELLS 0 /100 WBC 0-0 (BEAKER) (test code = 413) NEUTROPHILS RELATIVE PERCENT 69 % (BEAKER) (test code = 429) LYMPHOCYTES RELATIVE PERCENT 22 % (BEAKER) (test code = 430) MONOCYTES RELATIVE PERCENT 7 % (BEAKER) (test code = 431) EOSINOPHILS RELATIVE PERCENT 2 % (BEAKER) (test code = 432) BASOPHILS RELATIVE PERCENT 1 % (BEAKER) (test code = 437) NEUTROPHILS ABSOLUTE COUNT 4.65 K/ L 1.78-5.38 (BEAKER) (test code = 670) LYMPHOCYTES ABSOLUTE COUNT 1.50 K/ L 1.32-3.57 (BEAKER) (test code = 414) MONOCYTES ABSOLUTE COUNT (BEAKER) 0.44 K/ L 0.30-0.82 (test code = 415) EOSINOPHILS ABSOLUTE COUNT 0.11 K/ L 0.04-0.54 (BEAKER) (test code = 416) BASOPHILS ABSOLUTE COUNT (BEAKER) 0.04 K/ L 0.01-0.08 (test code = 417) IMMATURE GRANULOCYTES-RELATIVE 0 % 0-1 PERCENT (BEAKER) (test code = 6671)
[2020-05-04] MEDS ORDERED: NA CHLORIDE 0.9% 1,000 ML ONE (10:56)
[2020-05-04] MEDS: CEFAZOLIN/SWI 2gm 2 GM/20 ML SYR ONE ×2 (11:51→13:30)
[2020-05-04] MEDS ORDERED: FENTANYL CITR 100 MCG/2 ML ONE (12:11)
[2020-05-04] MEDS ORDERED: MIDAZOLAM HCL 2 MG/2 ML INJ ONE (12:12)
[2020-05-04] MEDS ORDERED: propofoL 200 MG/20 ML VIAL IV ONE (12:12)
[2020-05-04] MEDS ORDERED: LIDOCAINE 1% MPF 5 ML VIAL ONE (12:12)
[2020-05-04] MEDS ORDERED: KETOROLAC 30 MG/ML INJ ONE (14:00)
--- NOTE | 2020-05-04 14:10 | P.OP ---
Preoperative diagnosis: Upper Back infected sebaceous cyst with abscess Postoperative diagnosis: Upper Back infected sebaceous cyst with abscess Primary procedure: Wide local excision of Upper Back infected sebaceous cyst with abscess Secondary procedure: application of RENA negative pressure therapy Anesthesia: GETA + Local Estimated blood loss: <5cc Specimen: debridement tissue, and cultures Findings: ~6cm x 6 cm Upper Back infected sebaceous cyst with abscess to fascia Drain(s): Other (RENA with telfa wick) Fluids & blood products: Telfa Wick Transferred to: Recovery Room Condition: Good
[2020-05-04] MEDS ORDERED: ONDANSETRON 4 MG/2 ML VIAL ONE (14:19)
[2020-05-04 14:46] VITALS: O2SAT 97
--- NOTE | 2020-05-04 15:03 | OP ---
Date of Procedure: 05/04/2020 Surgeon: Yuriy Edouard MD, Preoperative Diagnosis: Upper back infected sebaceous cyst with abscess. Postoperative Diagnosis: Upper back infected sebaceous cyst with abscess. Procedure Performed: 1.A wide local excision of the upper back infected sebaceous cyst with abscess. 2.Application of RENA negative pressure wound therapy. Anesthesia: General endotracheal plus local with 0.25% Marcaine without epinephrine. Estimated Blood Loss: Less than 5 mL. Specimen: Debridement tissue and cultures sent for both aerobic and anaerobic speciation. Findings: 6 x 6 cm upper back infected sebaceous cyst with abscess extending to the fascia overlying the muscle. Drains: RENA was placed with a Telfa wick into the wound cavity. Implant: Only a Telfa wick. The patient transferred to recovery room in good condition. Procedure In Detail: After informed consent was obtained, the patient was brought to the operating r oom, prepped and draped in the usual sterile fashion. After adequate anesthesia was achieved, an are a of the upper midback was anesthetized with 0.5% Marcaine without epinephrine. A sharp incision was made overlying an open area of punctate small open draining wounds consistent with sebaceous and abs cess material. This elliptical incision was carried down for approximately 6 cm down to subcutaneous tissues. Electrocautery was used to dissect circumferentially around a multiloculated infected absc ess with sebaceous material evident consistent with an infected sebaceous cyst. After this, cyst was removed in its entirety and sent off for pathologic examination. Cultures were taken from the absce ss material for both aerobic and anaerobic speciation. The area was copiously irrigated multiple miguel angel es until completely dry. Hemostasis was achieved with electrocautery. At this point, the area was i rrigated once again, dried, and then partially reapproximated with 2-0 nylon sutures in an interrupte d fashion leaving an opening in the middle. A Telfa wick was placed inside and the RENA negative pre ssure wound therapy applied at this point. The patient tolerated the procedure without evidence of c omplication and transferred to PACU in good condition. All counts were correct at the end of the juancarlos e. TK/MODL Voice ID: [id number] Report ID: [id number]
[2020-05-04 15:06] VITALS: BP 114/42; TEMP 97.2
== END 2020-05-04 15:25 | disposition home or self-care (01) ==
LOC: OR 10:11
PROVIDERS: ATTEND Surgery
PROC: 0JB70ZZ Excision of Back Subcutaneous Tissue and Fascia, Open Approach (ICD-10-PCS; principal; 2020-05-04 13:30)
DX: L72.0 Epidermal cyst (principal); Z20.822 Contact with and (suspected) exposure to COVID-19
CPT/HCPCS: 87070; 87205; 82947; 88304; 87075; 11406; U0002; J2704; J2250; J3010; J0690; J7030; J2405

== ENCOUNTER 2020-07-21 08:22 | Day surgery (SDC) | payer OTHER ==
[2020-07-21] MEDS ORDERED: NA CHLORIDE 0.9% 1,000 ML ONE (09:47)
[2020-07-21 10:00] LABS: Absolute Lymphocytes (CBC) 1.8 K/uL (0.7-4.9); Basophils % 0.8 % (0-1.3); Hematocrit 41.3 % (39.6-49.0); Lymphocytes % 29.2 % (15.3-44.8); RBC Red Blood Cell Count 4.76 M/uL (4.33-5.43)
[2020-07-21] MEDS: BUPIVACAINE 0.25% PF 30 ML VIAL ONE ×2 (11:09→12:35)
[2020-07-21] MEDS ORDERED: LIDOCAINE 1% MPF 5 ML VIAL ONE (11:46)
[2020-07-21] MEDS ORDERED: FENTANYL CITR 100 MCG/2 ML ONE (11:46)
[2020-07-21] MEDS ORDERED: propofoL 200 MG/20 ML VIAL IV ONE (11:46)
[2020-07-21] MEDS ORDERED: CEFAZOLIN SODIUM 1 GM/VIAL ONE (12:14)
[2020-07-21] MEDS ORDERED: NS 0.9% VIAL 20 ML ONE (12:15)
[2020-07-21] MEDS ORDERED: KETOROLAC 30 MG/ML INJ ONE (12:22)
[2020-07-21] MEDS ORDERED: ONDANSETRON 4 MG/2 ML VIAL ONE (12:29)
--- NOTE | 2020-07-21 12:41 | P.OP ---
Preoperative diagnosis: Posterior Neck Lipoma Postoperative diagnosis: Posterior Neck Lipoma Primary procedure: wide local excision of Posterior Neck Lipoma Anesthesia: GETA + Local Estimated blood loss: <5cc Specimen: 14cm x 8cm mass down to fascia but not into muscle Findings: 14cm x 8cm mass down to fascia but not into muscle Complications: None Drain(s): TAE drain (7 Fr Round TAE) Transferred to: Recovery Room Condition: Good
[2020-07-21 14:47] VITALS: BP 127/72; TEMP 97; O2SAT 98
--- NOTE | 2020-07-21 17:37 | OP ---
Date of Procedure: 07/21/2020 Surgeon: Yuriy Edouard MD, Brief History Of Present Illness: The patient is a 75-year-old male, who has had a long-standing pos terior neck mass, which has been enlarging as of late. He has had it for greater than 10 years and n oted as of late became more tender, painful and was causing some neck symptoms with cramping and diff iculty with movement. Preoperative Diagnosis: Posterior neck lipoma. Postoperative Diagnosis: Posterior neck lipoma. Procedure Performed: A wide local excision of posterior neck lipoma. Anesthesia: General endotracheal plus local with 0.25% Marcaine without epinephrine. Estimated Blood Loss: Less than 5 mL. Specimen: Posterior neck lipomatous mass. Findings: A 14 cm x 8 cm mass down to the fascia consistent with a lipoma, but not involving the mus toir. There was some fascial involvement. Complications: None. Drains: A 7-Kittitian round TAE drain. Disposition: The patient was transferred to recovery room in good condition. Procedure In Detail: After informed consent was obtained, the patient was brought to the operating r oom, prepped and draped in the usual sterile fashion. After adequate anesthesia was achieved, a line ar incision was made down through the subcutaneous tissues on the posterior neck overlying a large li pomatous mass. Dissection was continued down using combination of electrocautery and blunt dissectio n circumferentially around a 14 cm x 8 cm lipomatous mass, which was down to the fascia overlying the muscle. Dissection was continued down to remove this mass off this fascial plane with minimal fasci al involvement. There was no muscular involvement noted. The mass was sent off for pathologic exami [facility]. The area was copiously irrigated multiple times until completely clear. Hemostasis was achi eved with electrocautery. A 7-Kittitian round TAE drain was brought out at the inferior position and sec ured with a 2-0 nylon suture. The deep dermal plane was reapproximated using a series of 3-0 interru pted Vicryl sutures and the skin was closed with a 4-0 Monocryl in a running fashion. Dermabond was placed over top. The patient tolerated the procedure well without evidence of complication and was t ransferred to PACU in good condition. All counts were correct at the end of the case. TK/MODL Voice ID: [id number] Report ID: [id number]
== END 2020-07-21 14:15 | disposition home or self-care (01) ==
LOC: OR 08:22
PROVIDERS: ATTEND Surgery
PROC: 0JB50ZZ Excision of Left Neck Subcutaneous Tissue and Fascia, Open Approach (ICD-10-PCS; principal; 2020-07-21 10:15)
DX: D17.0 Benign lipomatous neoplasm of skin and subcutaneous tissue of head, face and neck (principal); Z20.822 Contact with and (suspected) exposure to COVID-19
CPT/HCPCS: 93005; 85025; 80048; 36415; 82947; 88304; 11426; J2704; J3010; J7030; J2405; J0690

== ENCOUNTER 2021-12-19 17:57 | Emergency (ER) | payer OTHER ==
--- OUTSIDE RECORDS SUMMARY | 2021-12-19 18:04 | XMS REPORT | Continuity of Care Document ---
:1945 Author Organization [facility] t Address [address] [place] [address] Care Team Providers Name Role Phone PASCUAL CABRAL Primary Care Physician UnavailPascual Peter Attending Clinician Unavailable GARCÍA NICHOLS Attending Clinician Unavailable MICKEY HANCOCK Attending Clinician Unavailable HENRIQUE JIMENEZ Attending Clinician Unavailable EDNA NORTON Attending Clinician Unavailable Edna Norton MD Attending Clinician HERIBERTO BIGGS Attending Clinician Unavailable Heriberto Biggs MD Attending Clinician LEON VOGEL Attending Clinician Unavailable Leon Luna Attending Clinician Mickey Hancock MD Attending Clinician Only, Adc Test Attending Clinician Unavailable Doctor Unassigned, Goehner Attending Clinician Unavailable Pob, Adc Lab Main Attending Clinician Unavailable GARCÍA NICHOLS Admitting Clinician Unavailable MICKEY HANCOCK Admitting Clinician Unavailable HENRIQUE JIMENEZ Admitting Clinician Unavailable HERIBERTO BIGGS Admitting Clinician Unavailable Mickey Hancock MD Admitting Clinician Payers Payer Name Policy Type Policy Number Effective Date Expiration Date S ource MEDICARE PART A [id number] 2008 \\T\\ [id number] 00:00:00 COMMERCIAL [id number] 2010 NON-CONTRACT 00:00:00 GENERIC MEDICARE A B [id number] 2008 00:00:00 [facility] [id number] 2010 NETWORK 00:00:00 GENERIC COMMERCIAL [id number] 2010 2010 00:00:00 00:00:00 GENERIC MEDICARE [id number] 2010 2015 SUPPLEMENT 00:00:00 00:00:00 ERICA INDEMNITY [id number] 2010 00:00:00 Problems Condition Condition Condition Status Onset Resolution Last Treating Co mments Source Name Details Category Date Date Treatment Clinician Date Acute on Acute on Disease [facility] systolic systolic 00:00: Medica l congestive congestive 00 Ce nter heart heart failure failure Chest pain Chest pain Disease Active 2016-[address] 04-29 [facility] 00:[facility]: Medical 00 Center Coronary Coronary Disease Active 2012-04 Overview: Un speedy atheroscle atheroscle 06-16 it y of rosis rosis 00:00: AMI/PCI [place] 00 RCA; Medical 02/1994 Branch Stent RCA; 10/2002 Stent LAD; & Mid Circ; 06/2003 Stent x 2 prox RCA & stent distal RCA; 12/2003 Cardiac Cath; 06/2006 stent RCA; 07/2007 stent RCA; 01/2011 stent prox/dist al RCA; 03/01 stent LAD; 01/2012 stent RCA; 03/2012 stent LAD; 04/15/13 3.0x16 mm Promus Premier ISR RCA; 01/12/15 Cardiac Cath: Med Mgmt CAD CAD Disease Active 2012-04 Overview: [facility] (coronary (coronary 06-16 Formattin L ukes artery artery 00:00: g of this Medical disease) disease) 00 note Center might be different from the original. 1993 AMI/PCI RCA; 02/1994 Stent RCA; 10/2002 Stent LAD; & Mid Circ; 06/2003 Stent x 2 prox RCA & stent distal RCA; 12/2003 Cardiac Cath; 06/2006 stent RCA; 07/2007 stent RCA; 01/2011 stent prox/dist al RCA; 03/01 stent LAD; 01/2012 stent RCA; 03/2012 stent LAD; 04/15/13 3.0x16 mm Promus Premier ISR RCA; 01/12/15 Cardiac Cath: Med Mgmt No known No known Disease Unive rs active active ity of problems problems [facility] [place] [facility] PAD PAD Disease Active Overview: [facility] (periphera (periphera Formattin Lukes l artery l artery g of this Med ical disease) disease) note Center might be different from the original. 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 Allergies, Adverse Reactions, Alerts Allergy Allergy Status Severity Reaction(s) Onset Inactive Treating Comm ents Source Name Type Date Date Clinician APIXABAN DRUG Active Unknown-Cmnt Un speedy INGREDI 07-18 ity of 00:00: [place] [address] [place] [address] Apixaban Propensi Active Unknown - Rage and U nivers ty to See comments 07-18 "wanted ity of adverse 00:00: to shoot [place] reaction 00 someone" Medica l Branch NO KNOWN Drug Active Univers ALLERGIE Class ity of S [facility] [place] [facility] NO KNOWN Allergy Active [facility] Family History Family Member Diagnosis Comments Start Date Stop Date Source Natural father Coronary artery [facility] Maternal grandfather Lung cancer [facility] Natural [facility] Natural [facility] Social History Social Habit Start Date Stop Date Quantity Comments Source History of Smoker University of tobacco use [facility] [place] [facility] Exposure to Not sure University of SARS-CoV-2 [place] [facility] (event) Branch History SDOH [facility] Alcohol Frequency Medical Center History SDOH [facility] Alcohol Std Medical Cente r Drinks History SDOH [facility] Alcohol Binge Medical [address] Alcohol intake 2021-06-26 2021-06-26 [facility]er [facility]00 of alcohol Medical Center (finding) History SDOH 2020-05-25 2020-05-[address] [facility] Alcohol Comment 00:00:00 00:00:00 Medical C enter Tobacco Comment 2018-03-26 2018-03-26 [address]uit [address] [facility] 00:00:00 00:00:00 ago Medical Center Tobacco use and 2013-04-15 2013-04-[address] [facility] [address] Adriana kes exposure 00:00:00 00:00:00 Medical Center Sex [birth year] AJ Barth 00:00:00 00:00:00 Medical Center Smoking Status Start Date Stop Date Source Unknown if ever smoked General acute hospital Former smoker 2013-04-15 00:00:00 2013-04-15 00:00:00 [facility] Medications Ordered Filled Start Stop Current Ordering Indication Dosage Frequency Signature Comments Components Source Medication Medication Date Date Medication? Clinician (SIG) Name Name aspirin 81 0 Yes 81mg QD Take [address] mg Tab 3-04 by mouth [facility]ukes 14:51: daily . Medical 56 Center tamsulosin Yes .4mg QD Take 0.[address] (FLOMAX) 3-04 mg by [facility]ukes 0.4 mg Cp24 14:51: mouth Medic al 24 hr 56 daily. Center capsule finasteride Yes 5mg QD Take [address] (PROSCAR) 5 3-04 by mouth Luke s mg tablet 14:51: daily. Medica l 56 Center pravastatin Yes 80mg QD Take [address] (PRAVACHOL) 3-04 by mouth Luke s 40 MG 14:51: nightly . Medical tablet 56 Center metoprolol Yes 25mg QD Take [address] (TOPROL-XL) 3-04 by mouth Luke s 25 MG 24 hr 14:51: daily. Medi laurie tablet 56 Center vit Yes Q.5D Take by [facility] C/E/Zn/eris 3-04 mouth 2 [facility]ukes r/lutein/ze 14:51: (two) Medic al axan 56 times Center (PRESERVISI daily. ON AREDS-2 ORAL) sacubitriL- 0 Yes chronic 1{tbl} Q.5D Take [address] valsartan 3-04 heart tablet by Luke s (Entresto) 14:51: failure mouth 2 M edical 24-26 mg 56 (two) Center Tab times daily. empaglifloz Yes heart 10mg QD Take [address] in 3-04 failure by mouth Lukes (Jardiance) 14:51: with daily. Medi laurie 10 mg 56 reduced Center tablet ejection fraction metFORMIN 2021- No type 2 1000mg Take 1,[address] (GLUMETZA) 3-04 03-04 diabetes mg by Radha es 1000 MG 14:17: 00:00 mellitus mouth 2 Me dical (MOD) 24 hr 34 :00 (two) Center tablet times daily with breakfast and dinner . torsemide 2021- No 10mg Take [address] (DEMADEX) 06-22 03-04 by mouth [facility]ukes 10 MG 14:17: 00:00 daily as Medical tablet 34 :00 needed Has Center been out of rx last few days . rivaroxaban 2021- No 20mg QD Take [address] (XARELTO) 06-22-04 by mouth [facility]ukes 15 mg Tab 14:17: 00:00 daily . Medi laurie tablet 34 :00 Center torsemide Yes 10mg QD Take [address] (DEMADEX) 3-04 tablet (10 Luke s 10 MG 00:00: mg total) Medical tablet 00 by mouth Center daily. rivaroxaban Yes 20mg Take [address] (XARELTO) 3-04 tablet (20 Luke s 20 mg Tab 00:00: mg total) Med ical tablet 00 by mouth Center daily with dinner Resume the evening of 06/23. metFORMIN Yes type 2 1000mg Take [address] (GLUMETZA) 3-04 diabetes tablet Radha es 1000 MG 00:00: mellitus (1,000 mg M edical (MOD) 24 hr 00 total) by [address] [facility] tablet mouth 2 (two) times daily with breakfast and dinner Resume on 06/24. lisinopril 2021- No 10mg QD Take [address] (PRINIVIL,Z 2-28 -28 by mouth Radha es ESTRIL) 20 14:37: 00:00 daily . Med ical MG tablet 48 :00 [place] triamcinolo 2020- No [id number] 40mg [facility] 10-10 9109 ity of acetonide 21:30: 20:18 [place] (KENALOG) 00 :00 Medical injection Branch 40 mg triamcinolo 2020- No [id number] 40mg 40 mg, Univers ne 10-10 9109 Intra-juan f ity of acetonide 21:30: 20:18 [place] catherine (KENALOG) 00 :00 ONCE, 1 Medical injection dose, Shane Maya h 40 mg 10/10/20 at 1630, Routine metFORMIN 2020-0 Yes 1000mg Take 1,000 Univers 1,000 mg 6-07 mg by ity of tablet 00:00: mouth 2 [place] [address] (two) Medical times Branch daily. metFORMIN 2020-0 Yes 1000mg Take 1,000 Univers 1,000 mg 6-07 mg by ity of tablet 00:00: mouth 2 [place] 00 (two) Medical times Branch daily. metFORMIN 2020-0 Yes 1000mg Take 1,000 Univers 1,000 mg 6-07 mg by ity of tablet 00:00: mouth 2 [place] (two) Medical times Branch daily. metFORMIN 2020-0 Yes 1000mg Take 1,000 Univers 1,000 mg 6-07 mg by ity of tablet 00:00: mouth 2 [place] [address] (two) Medical times Branch daily. metFORMIN 2020-0 Yes 1000mg Take 1,000 Univers 1,000 mg 6-07 mg by ity of tablet 00:00: mouth 2 [place] [address] (two) Medical times Branch daily. XARELTO 20 2020-0 Yes 20mg Take 20 mg U nivers mg tablet 6-06 by mouth ity of 00:00: daily. [address] Branch XARELTO 20 2020-0 Yes 20mg Take 20 mg U nivers mg tablet 6-06 by mouth ity of 00:00: daily. [address] XARELTO 20 2020-0 Yes 20mg Take 20 mg U nivers mg tablet 6-06 by mouth ity of 00:00: daily. [address] XARELTO 20 2020-0 Yes 20mg Take 20 mg U nivers mg tablet 6-06 by mouth ity of 00:00: daily. [address] XARELTO 20 2020-0 Yes 20mg Take 20 mg U nivers mg tablet 6-06 by mouth ity of 00:00: daily. [address] Branch lisinopriL 2020-0 Yes Univers 10 mg 5-22 ity of tablet 00:00: [address] lisinopriL 202-0 Yes Univers 10 mg 5-22 ity of tablet 00:00: [place] [facility] lisinopriL Yes Univers 10 mg 5-22 ity of tablet 00:00: [place] [facility] lisinopriL Yes Univers 10 mg 5-22 ity of tablet 00:00: [place] [facility] lisinopriL Yes Univers 10 mg 5-22 ity of tablet 00:00: [place] [facility] metoprolol Yes 25mg Take 25 mg U nivers succinate 5-08 by mouth ity of XL 25 mg 24 00:00: [place]. [place] hr tablet [facility] finasteride Yes 5mg Take 5 mg U nivers 5 mg tablet 5-08 by mouth ity of 00:00: daily. [address] tamsulosin Yes TAKE 1 Unive rs 0.4 mg 24 5-08 CAPSULE BY ity of hr capsule 00:00: MOUTH ONCE [place] 00 DAILY 30 Medical MINUTES Branch AFTER EVENING MEAL metoprolol Yes 25mg Take 25 mg U nivers succinate 5-08 by mouth ity of XL 25 mg 24 00:00: daily. [place] hr tablet [facility] finasteride Yes 5mg Take 5 mg U nivers 5 mg tablet 5-08 by mouth ity of 00:00: daily. [address] tamsulosin Yes TAKE 1 Unive rs 0.4 mg 24 5-08 CAPSULE BY ity of hr capsule 00:00: MOUTH ONCE [place] 00 DAILY 30 Medical MINUTES Branch AFTER EVENING MEAL metoprolol Yes 25mg Take 25 mg U nivers succinate 5-08 by mouth ity of XL 25 mg 24 00:00: daily. [place] hr tablet [facility] finasteride Yes 5mg Take 5 mg U nivers 5 mg tablet 5-08 by mouth ity of 00:00: daily. [address] tamsulosin Yes TAKE 1 Unive rs 0.4 mg 24 5-08 CAPSULE BY ity of hr capsule 00:00: MOUTH ONCE [place] 00 DAILY 30 Medical MINUTES Branch AFTER EVENING MEAL metoprolol Yes 25mg Take 25 mg U nivers succinate 5-08 by mouth ity of XL 25 mg 24 00:00: [place]. [place] hr tablet Medical Branch finasteride 0 Yes 5mg Take 5 mg U nivers 5 mg tablet 5-08 by mouth ity of 00:00: daily. [place] [facility] Branch tamsulosin Yes TAKE 1 Unive rs 0.4 mg 24 5-08 CAPSULE BY ity of hr capsule 00:00: MOUTH ONCE [place] 00 DAILY 30 Medical MINUTES Branch AFTER EVENING MEAL metoprolol 2020-0 Yes 25mg Take 25 mg U nivers succinate 5-08 by mouth ity of XL 25 mg 24 00:00: daily. [facility] tablet Medical Branch finasteride Yes 5mg Take 5 mg U nivers 5 mg tablet 5-08 by mouth ity of 00:00: daily. [place] [facility] Branch tamsulosin 2020- Yes TAKE 1 Unive rs 0.4 mg 24 5-08 CAPSULE BY ity of hr capsule 00:00: MOUTH ONCE [place] 00 DAILY 30 Medical MINUTES Branch AFTER EVENING MEAL ciprofloxac 2020-0 Yes 500mg Take 500 U nivers in HCl 500 5-07 mg by ity of mg tablet 00:00: mouth [place] ([facility]) Medical times Branch daily. ciprofloxac 2020-0 Yes 500mg Take 500 U nivers in HCl 500 5-07 mg by ity of mg tablet 00:00: mouth [place] ([facility]) Medical times Branch daily. ciprofloxac 2020-0 Yes 500mg Take 500 U nivers in HCl 500 5-07 mg by ity of mg tablet 00:00: mouth [place] ([facility]) Medical times Branch daily. ciprofloxac 2020-0 Yes 500mg Take 500 U nivers in HCl 500 5-07 mg by ity of mg tablet 00:00: mouth [place] ([facility]) Medical times Branch daily. ciprofloxac 2020-0 Yes 500mg Take 500 U nivers in HCl 500 5-07 mg by ity of mg tablet 00:00: mouth [place] ([facility]) Medical times Branch daily. prednisoLON 0 Yes INSTILL 1 U nivers E acetate 1 4-24 DROP INTO ity of % 00:00: RIGHT EYE [place] [address] THREE Medical suspension TIMES Branch drops DAILY FOR 7 DAYS THEN INSTILL 1 DROP INTO RIGHT EYE TWICE DAILY FOR 7 DAYS THEN INSTILL 1 DROP INT prednisoLON 2020-0 Yes INSTILL 1 U nivers E acetate 1 4-24 DROP INTO ity of % 00:00: RIGHT EYE [place] ophthalmic 00 THREE Medical suspension TIMES Branch drops DAILY FOR 7 DAYS THEN INSTILL 1 DROP INTO RIGHT EYE TWICE DAILY FOR 7 DAYS THEN INSTILL 1 DROP INT prednisoLON 2020-0 Yes INSTILL 1 U nivers E acetate 1 4-24 DROP INTO ity of % 00:00: RIGHT EYE [place] ophthalmic 00 THREE Medical suspension TIMES Branch drops DAILY FOR 7 DAYS THEN INSTILL 1 DROP INTO RIGHT EYE TWICE DAILY FOR 7 DAYS THEN INSTILL 1 DROP INT prednisoLON 2020-0 Yes INSTILL 1 U nivers E acetate 1 4-24 DROP INTO ity of % 00:00: RIGHT EYE [place] ophthalmic 00 THREE Medical suspension TIMES Branch drops DAILY FOR 7 DAYS THEN INSTILL 1 DROP INTO RIGHT EYE TWICE DAILY FOR 7 DAYS THEN INSTILL 1 DROP INT prednisoLON 2020-0 Yes INSTILL 1 U nivers E acetate 1 4-24 DROP INTO ity of % 00:00: RIGHT EYE [place] ophthalmic 00 THREE Medical suspension TIMES Branch drops DAILY FOR 7 DAYS THEN INSTILL 1 DROP INTO RIGHT EYE TWICE DAILY FOR 7 DAYS THEN INSTILL 1 DROP INT rivaroxaban 0 Yes 20mg Take 20 mg Univers (XARELTO) 4-21 by mouth. ity o f 20 mg 15:36: [address] pravastatin 0 Yes 80mg Take 80 mg Univers 80 mg 4-21 by mouth ity of tablet 15:36: at [place] [address] bedtime. Medical Branch aspirin 81 2020-0 Yes 81mg Take 81 mg U nivers mg chewable 4-21 by mouth ity of tablet 15:36: daily. [address] Branch lisinopriL 0 Yes 10mg Take 10 mg U nivers 10 mg 4-21 by mouth ity of tablet 15:36: daily. [address] Branch metoprolol 0 Yes 25mg Take 25 mg U nivers tartrate 25 4-21 by mouth 2 it y of mg tablet 15:36: (two) [place] [address] times [facility] daily. Branch finasteride 0 Yes 5mg Take 5 mg U nivers 5 mg tablet 4-21 by mouth ity of 15:36: daily. [address] tamsulosin 2021-0 Yes .4mg Take 0.4 Uni vers 0.4 mg 24 4-21 mg by ity of hr capsule 15:36: mouth daily. Medical Branch metFORMIN 2020-0 Yes 1000mg Take 1,000 Univers 500 mg 4-21 mg by ity of tablet 15:36: mouth 2 (two) Medical times Branch daily. cephALEXin 0 Yes 500mg Take 500 Un speedy 500 mg 4-21 mg by ity of capsule 15:36: mouth 4 (four) Medical times Branch daily. vit A/vit 0 Yes Take by Unive rs C/vit 4-21 mouth ity of E/zinc/eris 15:36: daily. [facility] s 06 Medical (PRESERVISI Branch ON AREDS ORAL) rivaroxaban 0 Yes 20mg Take 20 mg Univers (XARELTO) 4-21 by mouth. ity o f 20 mg 15:36: [place] tablet Medical Branch pravastatin 0 Yes 80mg Take 80 mg Univers 80 mg 4-21 by mouth ity of tablet 15:36: at [place] [address] bedtime. Medical Branch aspirin 81 0 Yes 81mg Take 81 mg U nivers mg chewable 4-21 by mouth ity of tablet 15:36: daily. [place] [address] Medical Branch lisinopriL 0 Yes 10mg Take 10 mg U nivers 10 mg 4-21 by mouth ity of tablet 15:36: daily. [place] [address] Medical Branch metoprolol 0 Yes 25mg Take 25 mg U nivers tartrate 25 4-21 by mouth 2 it y of mg tablet 15:36: (two) [place] [address] times [facility] daily. Branch finasteride 0 Yes 5mg Take 5 mg U nivers 5 mg tablet 4-21 by mouth ity of 15:36: daily. [place] [address] Medical Branch tamsulosin 0 Yes .4mg Take 0.4 Uni vers 0.4 mg 24 4-21 mg by ity of hr capsule 15:36: mouth daily. Medical Branch metFORMIN 2020-0 Yes 1000mg Take 1,000 Univers 500 mg 4-21 mg by ity of tablet 15:36: mouth 2 [place] (two) Medical times Branch daily. cephALEXin 2020-0 Yes 500mg Take 500 Un speedy 500 mg 4- mg by ity of capsule 15:36: mouth 4 06 (four) Medical times [place] daily. vit A/vit Yes Take by Unive rs C/vit 08-09 mouth ity of E/zinc/eris 15:36: daily. [place] 06 Medical (PRESERVISI Branch ON AREDS ORAL) neomycin-po Yes PRN, Univer s lymyxin-dex 08-09 Starting ity of amethasone 14:45: Fri [place] (MAXITROL) 00 08/09/20 at Med ical 3.5 0945, Branch mg/g-10,000 Until unit/g-0.1 Discontinu % ed, ophthalmic Routine, ointment Intra-op neomycin-po 2020- No PRN, Unive rs lymyxin-dex 08-09 Starting ity of amethasone 14:45: 17:36 Fri [place] (MAXITROL) 00 :08 08/09/20 at [facility] ica 3. 0945, Branch mg/g-10,000 Until Wed unit/g-0.1 08/09/20 at % 1236, ophthalmic Routine, ointment Intra-op gentamicin Yes PRN, Univers injection 08-09 Starting ity of 14:43: Fri 00 08/09/20 at [place] [address], [place] Until Discontinu ed, GIULIANO, Intra-op dexamethaso Yes PRN, Univer s ne 08-09 Starting ity of (DECADRON 14:43: Fri PHOSPHATE) 00 08/09/20 at [facility] ical injection 09, [place] Until Discontinu ed, Routine, Intra-op ceFAZolin Yes PRN, Univers (ANCEF) 08-09 Starting ity of injection 14:43: Fri 00 08/09/20 at [place] [address], [place] Until Discontinu ed, GIULIANO, Intra-op gentamicin 2020- No PRN, Univer s injection 08-09 Starting ity o f 14:43: 17:36 Wed [place] 00 :08 08/09/20 at [facility] 09, Branch Until Fri08/09/20 at 1236, GIULIANO, Intra-op dexamethaso 2020- No PRN, Unive rs ne 08-09 Starting ity of (DECADRON 14:43: 17:36 Fri [place] PHOSPHATE) 00 :08 08/09/20 at [facility] ical injection 0943, Branch Until Fri08/09/20 at 1236, Routine, Intra-op ceFAZolin 2020- No PRN, Univers (ANCEF) 08-09 Starting ity of injection 14:43: 17:36 Fri [place] 00 :08 08/09/20 at [facility] 0943, Branch Until Fri08/09/20 at 1236, GIULIANO, Intra-op sodium Yes PRN, Univers chloride 08-09 Starting ity of (NS) 14:38: Fri [place] injection 00 08/09/[address] [facility] 0938, Branch Until Discontinu ed, Routine, Intra-op sodium 2020- No PRN, Univers chloride 08-09 Starting ity of (NS) 14:38: 17:36 Fri [place] injection 00 :08 08/09/[address] [facility] 0938, Branch Until Fri08/09/20 at 1236, Routine, Intra-op EPINEPHrine Yes PRN, Univer s 1:1,000 (08-09 Starting ity o f mg/mL) 14:37: Fri [place] (ADRENALIN) 00 08/09/20 at Dc dical injection 0937, Branch Until Discontinu ed, Routine, Intra-op DUOVISC Yes PRN, Univers (DUOVISC 08-09 Starting ity of VISCO 14:37: Fri [place] ELASTIC) 3 00 08/09/20 at [facility] ical %-4 %(0.5 0937, Branch mL) 1 % Until (0.55 mL) Discontinu intraocular ed, injection Routine, Intra-op EPINEPHrine 2020- No PRN, Unive rs 1:1,000 (1 08-09 Starting ity of mg/mL) 14:37: 17:36 Fri [place] (ADRENALIN) 00 :08 08/09/20 at Dc dical injection 0937, Branch Until Fri08/09/20 at 1236, Routine, Intra-op DUOVISC 2020- No PRN, Univers (DUOVISC 08-09 Starting ity of VISCO 14:37: 17:36 Wed [place] ELASTIC) 3 00 :08 08/09/20 at [facility] ica %-4 %(0.5 0937, Branch mL) 1 % Until Wed (0.55 mL) 08/09/20 at intraocular 1236, injection Routine, Intra-op carbachoL Yes PRN, Univers (MIOSTAT) 08-09 Starting ity of 0.01 % 14:36: Wed [place] intraocular 00 08/09/20 at Dc dical injection 0936, Branch Until Discontinu ed, Routine, Intra-op carbachoL 2020- No PRN, Univers (MIOSTAT) 08-09 Starting ity o f 0.01 % 14:36: 17:36 Wed [place] intraocular 00 :08 08/09/20 at Dc dical injection 0936, Branch Until 08/09/20 at 1236, Routine, Intra-op balanced Yes PRN, Univers salt irrig 08-09 Starting ity o f soln comb1 14:35: Fri [place] (BSS PLUS) 00 08/09/20 at [facility] ical ophthalmic 0935, Branch solution Until 500 mL bag Discontinu ed, Routine, Intra-op balanced 2020- No PRN, Univers salt irrig 08-09 Starting ity of soln comb1 14:35: 17:36 Fri [place] (BSS PLUS) 00 :08 08/09/20 at [facility] ica ophthalmic 0935, Branch solution Until Wed 500 mL bag 08/09/20 at 1236, Routine, Intra-op water for Yes PRN, Univers irrigation 08-09 Starting ity o f irrigation 14:25: Wed [place] solution 00 08/09/20 at Medic al 0925, Branch Until Discontinu ed, Routine, Intra-op water for 2020- No PRN, Univers irrigation 08-09 Starting ity of irrigation 14:25: 17:36 Wed [place] solution 00 :08 08/09/20 at Medic al 0925, Branch Until 08/09/20 at 1236, Routine, Intra-op eye block Yes PRN, Univers syringe 11 08-09 Starting ity o f mL 14:24: Wed [place] 00 08/09/20 at Medical 0924, Branch Until Discontinu ed, Intra-op eye block 2020- No PRN, Univers syringe 11 08-09 Starting ity of mL 14:24: 17:36 Fri 00 :08 08/09/20 at Medical 0924, Branch Until Fri08/09/20 at 1236, Intra-op Hyaluronida Yes PRN, Univer s se, Human 08-09 Starting ity of Recomb. 14:23: Fri (HYLENEX) 00 08/09/[address] [facility] injection 0923, Branch Until Discontinu ed, Routine, Intra-op Hyaluronida 2020- No PRN, Unive rs se, Human 08-09 Starting ity o f Recomb. 14:23: 17:36 Fri [place] (HYLENEX) 00 :08 08/09/[address] [facility] injection 0923, Branch Until Fri08/09/20 at 1236, Routine, Intra-op mydriatic 2020- No .5mL 0.5 mL, Univ ers #5 08-09 Left Eye, ity of ophthalmic 12:30: 12:44 ONCE, 1 [place] solution 00 :00 dose, [facility] Medica l 0.5 mL 08/09/20 at [place] syringe 0730, Routine, DSU Pre-op lactated 2020- No 1000mL at 42 Unive rs ringers IV 08-09 mL/hr, ity of infusion 12:30: 12:44 1,000 mL, [place] as 1,000 mL 00 :00 IV Medical Infusion, [place] ONCE, 1 dose, 08/09/20 at 0730, Routine, DSU Pre-op mydriatic 2020- No .5mL 0.5 mL, Univ ers #5 08-09 Left Eye, ity of ophthalmic 12:30: 12:44 ONCE, 1 [place] solution 00 :00 dose, [facility] Medica l 0.5 mL 08/09/20 at [place] syringe 0730, Routine, DSU Pre-op lactated 2020- No 1000mL at 42 Unive rs ringers IV 08-09 mL/hr, ity of infusion 12:30: 12:44 1,000 mL, [place] as 1,000 mL 00 :00 IV Medical Infusion, Branch ONCE, 1 dose, 08/09/20 at 0730, Routine, DSU Pre-op Cholecalcif 2020-0 Yes TAKE 1 Univ ers vera, 4-12 CAPSULE BY ity of Vitamin D3, 00:00: MOUTH ONCE [place] 1,250 mcg 00 EVERY Medical (50,000 MONTH Branch unit) capsule pravastatin 2020-0 Yes 80mg Take 80 mg Univers 80 mg 4-12 by mouth ity of tablet 00:00: every [place] 00 evening. Medical Branch Cholecalcif 2020-0 Yes TAKE 1 Univ ers vera, 4-12 CAPSULE BY ity of Vitamin D3, 00:00: MOUTH ONCE [place] 1,250 mcg 00 EVERY Medical (50,000 MONTH Branch unit) capsule pravastatin 2020-0 Yes 80mg Take 80 mg Univers 80 mg 4-12 by mouth ity of tablet 00:00: every [place] 00 evening. Medical Branch Cholecalcif 2020-0 Yes TAKE 1 Univ ers vera, 4-12 CAPSULE BY ity of Vitamin D3, 00:00: MOUTH ONCE [place] 1,250 mcg 00 EVERY Medical (50,000 MONTH Branch unit) capsule pravastatin 2020-0 Yes 80mg Take 80 mg Univers 80 mg 4-12 by mouth ity of tablet 00:00: every [place] 00 evening. Medical Branch Cholecalcif 2020-0 Yes TAKE 1 Univ ers vera, 4-12 CAPSULE BY ity of Vitamin D3, 00:00: MOUTH ONCE [place] 1,250 mcg 00 EVERY Medical (50,000 MONTH Branch unit) capsule pravastatin 2020-0 Yes 80mg Take 80 mg Univers 80 mg 4-12 by mouth ity of tablet 00:00: every [place] 00 evening. Medical Branch Cholecalcif 2020-0 Yes TAKE 1 Univ ers vera, 4-12 CAPSULE BY ity of Vitamin D3, 00:00: MOUTH ONCE [place] 1,250 mcg 00 EVERY Medical (50,000 MONTH Branch unit) capsule pravastatin 2020-0 Yes 80mg Take 80 mg Univers 80 mg 4-12 by mouth ity of tablet 00:00: every [place] 00 evening. Medical Branch aspirin 81 2020-0 Yes 81mg Take 81 mg U nivers mg chewable 3-31 by mouth ity of tablet 14:25: daily. [place] 58 Medical Branch lisinopriL 0 Yes 10mg Take 10 mg U nivers 10 mg 3-31 by mouth ity of tablet 14:25: daily. [place] [address] Medical Branch metoprolol 0 Yes 25mg Take 25 mg U nivers tartrate 25 3-31 by mouth 2 it y of mg tablet 14:25: (two) [place] [address] times Medical daily. Branch finasteride 0 Yes 5mg Take 5 mg U nivers 5 mg tablet 3-31 by mouth ity of 14:25: daily. [place] [address] Medical Branch tamsulosin 0 Yes .4mg Take 0.4 Uni vers 0.4 mg 24 3-31 mg by ity of hr capsule 14:25: mouth [place] 58 daily. Medical Branch metFORMIN 0 Yes 1000mg Take 1,000 Univers 500 mg 3-31 mg by ity of tablet 14:25: mouth 2 [place] [address] (two) Medical times Branch daily. rivaroxaban 0 Yes 20mg Take 20 mg Univers (XARELTO) 3-31 by mouth. ity o f 20 mg 14:25: [place] [address] Medical Branch pravastatin 0 Yes 80mg Take 80 mg Univers 80 mg 3-31 by mouth ity of tablet 14:25: at [place] [address] bedtime. Medical Branch aspirin 81 0 Yes 81mg Take 81 mg U nivers mg chewable 3-31 by mouth ity of tablet 14:25: daily. [place] [address] Medical Branch lisinopriL 0 Yes 10mg Take 10 mg U nivers 10 mg 3-31 by mouth ity of tablet 14:25: daily. [place] [address] Medical Branch metoprolol 0 Yes 25mg Take 25 mg U nivers tartrate 25 3-31 by mouth 2 it y of mg tablet 14:25: (two) [place] [address] times Medical daily. Branch finasteride 2020-0 Yes 5mg Take 5 mg U nivers 5 mg tablet 3-31 by mouth ity of 14:25: daily. [place] [address] Medical Branch tamsulosin 0 Yes .4mg Take 0.4 Uni vers 0.4 mg 24 3-31 mg by ity of hr capsule 14:25: mouth [place] 58 daily. Medical Branch metFORMIN 2020-0 Yes 1000mg Take 1,000 Univers 500 mg 3-31 mg by ity of tablet 14:25: mouth 2 [place] [address] (two) Medical times Branch daily. rivaroxaban 0 Yes 20mg Take 20 mg Univers (XARELTO) 3-31 by mouth. ity o f 20 mg 14:25: [place] [address] Medical Branch pravastatin 0 Yes 80mg Take 80 mg Univers 80 mg 3-31 by mouth ity of tablet 14:25: at [place] [address] bedtime. Medical Branch aspirin 81 0 Yes 81mg Take 81 mg U nivers mg chewable 3-31 by mouth ity of tablet 14:25: daily. [place] [address] Medical Branch lisinopriL 0 Yes 10mg Take 10 mg U nivers 10 mg 3-31 by mouth ity of tablet 14:25: daily. [place] [address] Medical Branch metoprolol 0 Yes 25mg Take 25 mg U nivers tartrate 25 3-31 by mouth 2 it y of mg tablet 14:25: (two) [place] [address] times Medical daily. Branch finasteride 0 Yes 5mg Take 5 mg U nivers 5 mg tablet 3-31 by mouth ity of 14:25: daily. [place] [address] Medical Branch tamsulosin 0 Yes .4mg Take 0.4 Uni vers 0.4 mg 24 3-31 mg by ity of hr capsule 14:25: mouth [place] [address] daily. Medical Branch metFORMIN 0 Yes 1000mg Take 1,000 Univers 500 mg 3-31 mg by ity of tablet 14:25: mouth 2 [place] [address] (two) Medical times Branch daily. rivaroxaban 0 Yes 20mg Take 20 mg Univers (XARELTO) 3-31 by mouth. ity o f 20 mg 14:25: [place] [address] Medical Branch pravastatin 0 Yes 80mg Take 80 mg Univers 80 mg 3-31 by mouth ity of tablet 14:25: at [place] [address] bedtime. Medical Branch aspirin 81 2020-0 Yes 81mg Take 81 mg U nivers mg chewable 3-31 by mouth ity of tablet 14:25: daily. [place] [address] Medical Branch lisinopriL 0 Yes 10mg Take 10 mg U nivers 10 mg 3-31 by mouth ity of tablet 14:25: daily. [place] [address] Medical Branch metoprolol 2020-0 Yes 25mg Take 25 mg U nivers tartrate 25 3-31 by mouth 2 it y of mg tablet 14:25: (two) [place] [address] times Medical daily. Branch finasteride 0 Yes 5mg Take 5 mg U nivers 5 mg tablet 3-31 by mouth ity of 14:25: daily. [place] [address] Medical Branch tamsulosin 0 Yes .4mg Take 0.4 Uni vers 0.4 mg 24 3-31 mg by ity of hr capsule 14:25: mouth [place] [address] daily. Medical Branch metFORMIN 0 Yes 1000mg Take 1,000 Univers 500 mg 3-31 mg by ity of tablet 14:25: mouth 2 [place] [address] (two) Medical times [place] daily. rivaroxaban 0 Yes 20mg Take 20 mg Univers (XARELTO) 3-31 by mouth. ity o f 20 mg 14:25: [place] [address] Medical Branch pravastatin 0 Yes 80mg Take 80 mg Univers 80 mg 3-31 by mouth ity of tablet 14:25: at [place] [address] bedtime. Medical Branch aspirin 81 0 Yes 81mg Take 81 mg U nivers mg chewable 3-31 by mouth ity of tablet 14:25: daily. [place] [address] Medical Branch lisinopriL 0 Yes 10mg Take 10 mg U nivers 10 mg 3-31 by mouth ity of tablet 14:25: daily. [place] [address] Medical Branch metoprolol 0 Yes 25mg Take 25 mg U nivers tartrate 25 3-31 by mouth 2 it y of mg tablet 14:25: (two) [place] [address] times Medical daily. Branch finasteride 0 Yes 5mg Take 5 mg U nivers 5 mg tablet 3-31 by mouth ity of 14:25: daily. [place] [address] Medical Branch tamsulosin 0 Yes .4mg Take 0.4 Uni vers 0.4 mg 24 3-31 mg by ity of hr capsule 14:25: mouth [place] [address] daily. Medical Branch metFORMIN 0 Yes 1000mg Take 1,000 Univers 500 mg 3-31 mg by ity of tablet 14:25: mouth 2 [place] [address] (two) Medical times [place] daily. rivaroxaban 2020-0 Yes 20mg Take 20 mg Univers (XARELTO) 3-31 by mouth. ity o f 20 mg 14:25: [place] [address] [facility] pravastatin Yes 80mg Take 80 mg Univers 80 mg 07-19 by mouth ity of tablet 14:25: at [place] 58 bedtime. [facility] sodium Yes PRN, Univers chloride 07-19 Starting ity of (NS) 13:26: Wed [place] injection 00 07/19/[address] [facility] 08, [place] Until Discontinu ed, Routine, Intra-op Hyaluronida Yes PRN, Univer s se, Human 07-19 Starting ity of Recomb. 13:26: Fri (HYLENEX) 00 07/19/[address] [facility] injection [facility], [place] Until Discontinu ed, Routine, Intra-op sodium 2020- No PRN, Univers chloride 07-19 Starting ity of (NS) 13:26: 16:25 [facility] injection 00 :58 07/19/20 at [place] [id number], Branch Until Fri07/19/20 at 1125, Routine, Intra-op Hyaluronida 2020- No PRN, Unive rs se, Human 07-19 Starting ity o f Recomb. 13:26: 16:25 Fri [place] (HYLENEX) 00 :58 07/19/[address] [facility] injection [facility], Branch Until Fri07/19/20 at 1125, Routine, Intra-op eye block Yes PRN, Univers syringe 07-19 Starting ity o f mL 13:25: Wed [place] 00 07/19/20 at [place] [address], [place] Until Discontinu ed, Intra-op eye block 2020- No PRN, Univers syringe 11 07-19 Starting ity of mL 13:25: 16:25 Fri [place] 00 :58 07/19/20 at [place] [address], Branch Until Fri07/19/20 at 1125, Intra-op DUOVISC Yes PRN, Univers (DUOVISC 07-19 Starting ity of VISCO 13:24: Wed [place] ELASTIC) 3 00 07/19/20 at [facility] ical %-4 %(0.5 0824, Branch mL) 1 % Until (0.55 mL) Discontinu intraocular ed, injection Routine, Intra-op DUOVISC 2020- No PRN, Univers (DUOVISC 07-19 Starting ity of VISCO 13:24: 16:25 Wed [place] ELASTIC) 3 00 :58 07/19/20 at [facility] ica %-4 %(0.5 0824, Branch mL) 1 % Until Wed (0.55 mL) 07/19/20 at intraocular 1125, injection Routine, Intra-op dexamethaso Yes PRN, Univer s ne 07-19 Starting ity of (DECADRON 13:22: Wed [place] PHOSPHATE) 00 07/19/20 at [facility] ical injection 0822, Branch Until Discontinu ed, Routine, Intra-op ceFAZolin Yes PRN, Univers (ANCEF) 07-19 Starting ity of injection 13:22: Wed [place] 00 07/19/20 at [facility] 08, [place] Until Discontinu ed, GIULIANO, Intra-op carbachoL Yes PRN, Univers (MIOSTAT) 07-19 Starting ity of 0.01 % 13:22: Wed [place] intraocular 00 07/19/20 at Dc dical injection 821, [place] Until Discontinu ed, Routine, Intra-op balanced Yes PRN, Univers salt irrig 07-19 Starting ity o f soln comb1 13:22: Wed [place] (BSS PLUS) 00 07/19/20 at [facility] ical ophthalmic 22, [place] solution Until 500 mL bag Discontinu ed, Routine, Intra-op dexamethaso 2020- No PRN, Unive rs ne 07-19 Starting ity of (DECADRON 13:22: 16:25 Wed [place] PHOSPHATE) 00 :58 07/19/20 at [facility] ical injection 0822, Branch Until Fri07/19/20 at 1125, Routine, Intra-op ceFAZolin 2020- No PRN, Univers (ANCEF) 07-19 Starting ity of injection 13:22: 16:25 Wed [place] 00 :58 07/19/20 at Medical 0822, Branch Until Fri07/19/20 at 1125, GIULIANO, Intra-op carbachoL 2020-2020- No PRN, Univers (MIOSTAT) 07-19 Starting ity o f 0.01 % 13:22: 16:25 Wed [place] intraocular 00 :58 07/19/20 at Dc dical injection 0822, Branch Until Fri07/19/20 at 1125, Routine, Intra-op balanced 2020- No PRN, Univers salt irrig 07-19 Starting ity of soln comb1 13:22: 16:25 [facility] (BSS PLUS) 00 :58 07/19/20 at [facility] ical ophthalmic 0822, Branch solution Until Wed 500 mL bag 07/19/20 at 1125, Routine, Intra-op lactated 2020- No [facility] 07-[facility] mL/hr, ity of infusion 12:00: 12:08 1,000 mL, [place] 1,000 mL 00 :00 IV Medical Infusion, Branch ONCE, 1 dose, 07/19/20 at 0700, Routine, DSU Pre-op mydriatic 2020- No .5mL 0.5 mL, Univ ers #5 07-19 Right Eye, ity of ophthalmic 12:00: 12:08 ONCE, 1 [place] solution 00 :00 dose, Wed Medica l 0.5 mL 07/19/20 at Branch syringe 0700, Routine lactated 2020- No 1000[facility] 07-19 mL/hr, ity of infusion 12:00: 12:08 1,000 mL, [place] 1,000 mL 00 :00 IV Medical Infusion, Branch ONCE, 1 dose, 07/19/20 at 0700, Routine, DSU Pre-op mydriatic 2020- No .5mL 0.5 mL, Univ ers #5 07-19 Right Eye, ity of ophthalmic 12:00: 12:08 ONCE, 1 [place] solution 00 :00 dose, Wed Medica l 0.5 mL 07/19/20 at Branch syringe 0700, Routine EPINEPHrine Yes PRN, Univer s 1:1,000 (1 07-19 Starting ity o f mg/mL) 05:01: [facility] (ADRENALIN) 00 07/19/20 at Dc dical injection 0001, Branch Until Discontinu ed, Routine, Intra-op EPINEPHrine 2021-0 2021- No PRN, Unive rs 1:1,000 (1 07-19 Starting ity of mg/mL) 05:01: 16:25 Wed [place] (ADRENALIN) 00 :58 07/19/20 at Me dical injection 0001, Branch Until Fri07/19/20 at 1125, Routine, Intra-op triamcinolo 2020-0 Yes APPLY Unive rs ne 3-29 TOPICALLY ity of acetonide 00:00: TO [place] 0.1 % cream 00 AFFECTED Medi laurie AREA ONCE Branch DAILY NEEDED triamcinolo 2020-0 Yes APPLY Unive rs ne 3-29 TOPICALLY ity of acetonide 00:00: TO [place] 0.1 % cream 00 AFFECTED Medi laurie AREA ONCE Branch DAILY NEEDED triamcinolo 2020-0 Yes APPLY Unive rs ne 3-29 TOPICALLY ity of acetonide 00:00: TO [place] 0.1 % cream 00 AFFECTED Medi laurie AREA ONCE Branch DAILY NEEDED triamcinolo 2020-0 Yes APPLY Unive rs ne 3-29 TOPICALLY ity of acetonide 00:00: TO [place] 0.1 % cream 00 AFFECTED Medi laurie AREA ONCE Branch DAILY NEEDED triamcinolo 2020-0 Yes APPLY Unive rs ne 3-29 TOPICALLY ity of acetonide 00:00: TO [place] 0.1 % cream 00 AFFECTED Medi laurie AREA ONCE Branch DAILY NEEDED Vital Signs Vital Name Observation Time Observation Value Comments Source HEIGHT 2020-05-25 05:44:00 190.5 cm WEIGHT 2020-05-25 05:44:00 134.219 kg WEIGHT 2021-06-22 03:59:00 124.648 kg WEIGHT 2021-06-21 11:00:00 124.422 kg WEIGHT 2021-06-20 06:00:00 125.42 kg WEIGHT 2021-06-19 04:37:00 125.737 kg HEIGHT 2021-06-18 14:00:00 190.5 cm WEIGHT 2021-06-18 14:00:00 129.411 kg WEIGHT 2021-06-22 03:59:00 124.648 kg WEIGHT 2021-06-21 11:00:00 124.422 kg WEIGHT 2021-06-20 06:00:00 125.42 kg WEIGHT 2021-06-19 04:37:00 125.737 kg HEIGHT 2021-06-18 14:00:00 190.5 cm WEIGHT 2021-06-18 14:00:00 129.411 kg WEIGHT 2021-06-22 03:59:00 124.648 kg WEIGHT 2021-06-21 11:00:00 124.422 kg WEIGHT 2021-06-20 06:00:00 125.42 kg WEIGHT 2021-06-19 04:37:00 125.737 kg HEIGHT 2021-06-18 14:00:00 190.5 cm WEIGHT 2021-06-18 14:00:00 129.411 kg Systolic blood 2020-10-10 19:17:00 131 mm[Hg] Univer sity of [facility] Diastolic blood 2020-10-10 19:17:00 74 mm[Hg] Unive rsity of pressure [facility] [place] [facility] Heart rate 2020-10-10 19:17:00 106 /min Universi ty of [facility] [place] [facility] Body height 2020-10-10 19:17:00 190.5 cm Universi ty of [facility] [place] [facility] Body weight 2020-10-10 19:17:00 140.615 kg Universi ty of [facility] [place] [facility] BMI 2020-10-10 19:17:00 38.75 kg/m2 Universi ty of [facility] [place] [facility] Systolic blood 2020-08-09 15:01:00 122 mm[Hg] Univer sity of pressure [facility] [place] [facility] Diastolic blood 2020-08-09 15:01:00 54 mm[Hg] Unive rsity of [facility] Heart rate 2020-08-09 15:01:00 67 /min Universi ty of [facility] [place] [facility] Body temperature 2020-08-09 15:01:00 36.39 Marilee [facility] [place] [facility] Respiratory rate 2020-08-09 15:01:00 20 /min [facility] O[facility] saturation in 2020-08-09 15:01:00 97 /min [facility] Arterial blood by [facility] [place] [facility] Pulse oximetry Branch Body height 2020-08-02 15:12:00 190.5 cm Universi ty of [facility] [place] [facility] Body weight 2020-08-02 15:12:00 136.1 kg Universi ty of [facility] [place] [facility] BMI 2020-08-02 15:12:00 37.50 kg/m2 Universi ty of [place] [facility] Systolic blood 2020-08-09 15:01:00 122 mm[Hg] Univer sity of pressure [place] [facility] Diastolic blood 2020-08-09 15:01:00 54 mm[Hg] Unive rsity of pressure [place] [facility] Heart rate 2020-08-09 15:01:00 67 /min Universi ty of [place] [facility] Body temperature 2020-08-09 15:01:00 36.39 Marilee Univ ersity of [place] [facility] Respiratory rate 2020-08-09 15:01:00 20 /min Univ ersity of [place] [facility] Oxygen saturation in 2020-08-09 15:01:00 97 /min University of Arterial blood by [place] [employer] Pulse oximetry Branch Body height 2020-08-02 15:12:00 190.5 cm Universi ty of [place] [facility] Body weight 2020-08-02 15:12:00 136.1 kg Universi ty of [place] [facility] BMI 2020-08-02 15:12:00 37.50 kg/m2 Universi ty of [place] [facility] Systolic blood 2020-07-19 13:55:00 145 mm[Hg] Univer sity of pressure [place] [facility] Diastolic blood 2020-07-19 13:55:00 74 mm[Hg] Unive rsity of pressure [place] [facility] Heart rate 2020-07-19 13:55:00 75 /min Universi ty of [place] [facility] Body temperature 2020-07-19 13:55:00 36.67 Marilee Univ ersity of [place] [facility] Respiratory rate 2020-07-19 13:55:00 16 /min Univ ersity of [place] [facility] Oxygen saturation in 2020-07-19 13:55:00 99 /min University of Arterial blood by [employer] Pulse oximetry Branch Body height 2020-07-18 15:30:00 190.5 cm Universi ty of [place] [facility] Body weight 2020-07-18 15:30:00 136.079 kg Universi ty of [place] [facility] BMI 2020-07-18 15:30:00 37.50 kg/m2 Universi ty of [place] [facility] Systolic blood 2020-07-19 12:07:00 147 mm[Hg] Univer sity of pressure [place] [facility] Diastolic blood 2020-07-19 12:07:00 69 mm[Hg] Unive rsity of [facility] Heart rate 2020-07-19 12:07:00 81 /min [facility] Body temperature 2020-07-19 12:07:00 36.72 [facility] Respiratory rate 2020-07-19 12:07:00 20 /min [facility] Oxygen saturation in 2020-07-19 12:07:00 99 /min University Arterial blood by [facility] [place] [facility] Pulse oximetry [place] Body height 2020-07-18 15:30:00 190.5 cm [facility] Body weight 2020-07-18 15:30:00 136.079 kg [facility] BMI 2020-07-18 15:30:00 37.50 kg/m2 [facility] HEIGHT 2020-05-25 05:44:00 190.5 cm WEIGHT 2020-05-25 05:44:00 134.219 kg Systolic blood 2021-06-22 11:00:00 117 mm[Hg] [facility] Diastolic blood 2021-06-22 11:00:00 57 mm[Hg] [facility] Heart rate 2021-06-22 11:00:00 81 /min [facility] Body temperature 2021-06-22 11:00:00 36.39 Marilee [facility] Respiratory rate 2021-06-22 11:00:00 18 /min [facility] Oxygen saturation in 2021-06-22 11:00:00 96 /min [facility] Arterial blood by Medical Ce nter Pulse oximetry Body weight 2021-06-22 03:59:00 124.648 kg [facility] BMI 2021-06-22 03:59:00 34.35 kg/m2 [facility] Body height 2021-06-18 14:00:00 190.5 cm [facility] Procedures Procedure Date / Time Performing Source Performed Clinician XR CHEST 1 VIEW PORTABLE / 2021-06-22 Edna Norton I [facility] BEDSIDE 11:29:00 [facility] POCT-GLUCOSE METER 2021-06-22 Kalyan, Herib[facility]na [facility] 11:21:00 Medical Center INSERTION, PULSE GENERATOR 2021-06-22 Errol, Edna Raulito [facility] WITH MULTIPLE EXISTING 06:55:00 Medical C enter ELECTRODE LEADS, ICD POCT-GLUCOSE METER 2021-06-22 Kalyan, Heriberto Hyunna [facility] 04:16:00 Medical Center BASIC METABOLIC PANEL (7) 2021-06-22 Edna Norton Raulito [facility] 04:14:00 Medical Center CBC W/PLT COUNT & AUTO 2021-06-22 Errol, Edna Cabezas [facility] DIFFERENTIAL 04:13:00 Medical Center CBC W/PLT COUNT & AUTO 2021-06-22 Kalyan, [facility]na [facility] DIFFERENTIAL 04:13:00 [facility] APTT 2021-06-21 Edna Norton Raulito [facility] 22:40:00 Medical Center POCT-GLUCOSE METER 2021-06-21 Kalyan, Heriberto Hyunna [facility] 20:45:00 Medical Center POCT-GLUCOSE METER 2021-06-21 Kalyan, Heriberto Hyunna [facility] 15:47:00 Medical Center POCT-GLUCOSE METER 2021-06-21 Kalyan, Heriberto Hyunna [facility] 12:19:00 Medical Center POCT-GLUCOSE METER 2021-06-21 Kalyan, Heriberto Hyunna [facility] 11:06:00 Medical Center POCT-GLUCOSE METER 2021-06-21 Kalyan, Heriberto Hyunna [facility] 07:33:00 Medical Center BASIC METABOLIC PANEL (7) 2021-06-21 Edna Norton Raulito [facility] 04:02:00 Medical Center CBC W/PLT COUNT & AUTO 2021-06-21 Errol Edna Cabezas [facility] DIFFERENTIAL 02:23:00 Medical Center APTT 2021-06-21 Errol, Edna Raulito [facility] 02:23:00 Medical Center CBC W/PLT COUNT & AUTO 2021-06-21 Kalyan, Heriberto [facility]unna [facility] DIFFER[facility] 02:23:00 Medical Center POCT-GLUCOSE METER 2021-06-20 Kalyan, Heriberto Hyunna [facility] 20:48:00 Medical Center APTT 2021-06-20 Errol, Edna Cabezas [facility] 18:20:00 Medical Center POCT-GLUCOSE METER 2021-06-20 Kalyan, Heriberto Hyunna [facility] 17:20:00 Medical Center APTT 2021-06-20 Errol, Edna Cabezas [facility] 11:10:00 Medical Center POCT-GLUCOSE METER 2021-06-20 Kalyan, Heriberto Hyunna [facility] 11:08:00 Medical Center POCT-GLUCOSE METER 2021-06-20 Kalyan, Heriberto Hyunna [facility] 06:49:00 Medical Center BASIC METABOLIC PANEL (7) 2021-06-20 Errol, Edna Cabezas [facility] 03:32:00 Medical Center MAGNESIUM 2021-06-20 Errol, Edna Cabezas [facility] 03:32:00 Medical Center CBC W/PLT COUNT & AUTO 2021-06-20 Errol, Edna Cabezas [facility] DIFFERENTIAL 03:32:00 Medical Center APTT 2021-06-20 Errol, Edna Cabezas [facility] 03:32:00 Medical Center CBC W/PLT COUNT & AUTO 2021-06-20 Kalyan, Heribertosa Freemana [facility] DIFFERENTIAL 03:32:00 Medical Center (CELLAVISION MANUAL DIFF) 2021-06-20 Kalyan, Heriberto Hyunna [facility] 03:32:00 Medical Center POCT-GLUCOSE METER 2021-06-19 Kalyan, Heriberto Hyunna [facility] 21:55:00 Medical Center APTT 2021-06-19 Errol, Edna Cabezas [facility] 19:30:00 Medical Center POCT-GLUCOSE METER 2021-06-19 Kalyan, Heriberto Hyunna [facility] 16:35:00 Medical Center POCT-GLUCOSE METER 2021-06-19 Kalyan, Heriberto Hyunna [facility] 11:20:00 Medical Center PLATELET COUNT 2021-06-19 Errol, Edna Cabezas [facility] 10:27:00 Medical Center APTT 2021-06-19 Errol, Edna Cabezas [facility] 10:27:00 Medical Center 2D ECHO W/ DOPPLER 2021-06-19 Corie Elysialeila Conwaykes (CW/PW/COLOR) 09:02:49 [facility] POCT-GLUCOSE METER 2021-06-[address] [facility] 07:01:00 [facility] BASIC METABOLIC PANEL (7) 2021-06-[address] [facility] 05:34:00 [facility] MAGNESIUM 2021-06-[address] [facility] 05:34:00 [facility] HEMOGLOBIN A1C 2021-06-19 Kalyan, Heribertosa Freemana [facility] 05:34:00 [facility] CBC W/PLT COUNT & AUTO 2021-06-[address] [facility] DIFFERENTIAL 05:33:00 [facility] CBC W/PLT COUNT & AUTO 2021-06-19 Kalyan, Heriberto Hymarceloa [facility] DIFFER[facility] 05:33:00 [facility] POCT-GLUCOSE METER 2021-06-18 Kalyan, Heriberto Freemana [facility] 21:15:00 [facility] POCT-GLUCOSE METER 2021-06-18 Kalyan, Heribertolaura Freemana [facility] 16:43:00 [facility] SARS-COV2/RT-PCR ([facility] & REF 2021-06-18 Edna [facility] 15:57:00 [facility] B-TYPE NATRIURETIC FACTOR 2021-06-[address] [facility] (BNP) 15:57:00 [facility] MAGNESIUM 2021-06-[address] [facility] 15:56:00 [facility] HEPATIC FUNCTION PANEL 2021-06-[address] [facility] 15:56:00 [facility] LIPID PANEL 2021-06-[address] [facility] 15:56:00 [facility] CBC W/PLT COUNT & AUTO 2021-06-[address] [facility] DIFFERENTIAL 15:56:00 [facility] COMPREHENSIVE METABOLIC PANEL 2021-06-18 Heriberto Big[address]smarcel[address] a [facility] 15:56:00 [facility] CBC W/PLT COUNT & AUTO 2021-06-18 Kalyan, Heriberto Hyunna [facility] DIFFERENTIAL 15:56:00 Medical Center XR CHEST 1 VIEW PORTABLE / 2021-06-[address] [facility] BEDSIDE 15:13:00 [facility] ARRYTHMIA IMPLANT REPORT - 2021-06-18 Provider, Default [facility] SCAN 00:00:00 Scanning [facility] CARDIAC CATH REPORT - SCAN 2021-06-18 Provider, Default [facility] 00:00:00 Scanning [facility] XR KNEE <3 VW LEFT 2020-10-10 Leon Vogel [facility] 19:07:44 Medical Branch PHACOEMULSIFICATION OF 2020-08-09 [place] [facility] CATARACT WITH INTRAOCULAR 14:12:00 Medica l Branch LENS IMPLANT POCT GLUCOSE(AGE >30DAYS) 2020-08-09 Mickey Hancock [facility] 12:30:00 Medical Branch POCT GLUCOSE (AUTOMATED) 2020-08-09 Mickey Hancock [facility] 12:30:00 [facility] ASSIGNMENT OF BENEFITS 2020-08-08 Doctor Unassigned, [facility] 15:39:50 [place] [facility] PHACOEMULSIFICATION OF 2020-07-19 Mickey Hancock [facility] CATARACT WITH INTRAOCULAR 13:00:00 Medica l Branch LENS IMPLANT POCT GLUCOSE (AUTOMATED) 2020-07-19 Mickey Hancock [facility] 12:01:00 Medical Branch POCT GLUCOSE (AUTOMATED) 2020-07-19 Mickey Hancock [facility] 12:01:00 Medical Branch POCT GLUCOSE(AGE >30DAYS) 2020-07-19 [facility] 12:00:00 Medical Branch POCT GLUCOSE(AGE >30DAYS) 2020-07-19 [facility] 12:00:00 [facility] Branch DAY SURGERY - ADC 2020-07-19 Doctor Unassigned, [facility] 05:01:00 [place] Medical Branch ASSIGNMENT OF BENEFITS 2020-07-10 Doctor Unassigned, [facility] 17:34:13 [place] [facility] Plan of Care Planned Activity Planned Date Details Comments Source Future Scheduled 2021-12-20 INFLUENZA VACCINE (#1) [facility] 00:00:00 [code = INFLUENZA Medical Ce nter VACCINE (#1)] Future Scheduled 2021-04-[address] [facility] Test 00:00:00 (12+) [code = Medical Center DEPRESSION SCREENING (12+)] Future Scheduled 2021-04-21 FALLS RISK SCREENING [facility] Test 00:00:00 [code = FALLS RISK Medical C enter SCREENING] Future Scheduled [address] [facility] 00:[facility]00 WELLNESS (YEAR 2 or Medical Center FIRST YEAR if no IPPE) [code = MEDICARE ANNUAL WELLNESS (YEAR 2 or FIRST YEAR if no IPPE)] Future Scheduled 1993 SHINGLES VACCINES ([address] [facility] 00:00:00 of 2) [code = SHINGLES Medic al Center VACCINES (1 of 2)] Future Scheduled 1962 DTAP/TDAP/TD [facility]ACCINES [facility] 00:[facility]00 (1 - Tdap) [code = Medical C enter DTAP/TDAP/TD VACCINES (1 - Tdap)] Future Scheduled 1961 HEPATITIS C [facility]CRE[facility]ING [facility] [code = HEPATITIS C Medical Center SCREENING] Future Scheduled 1949 PNEUMOCOCCAL 65+ YRS [facility] 00:00:00 (1 - PCV) [code = Medical Ce nter PNEUMOCOCCAL 65+ YRS (1 - PCV)] Future Scheduled 1943 COVID-19 VACCINE (#1) [facility] 00:00:00 [code = COVID-[address] VACCINE (#1)] Encounters Start End Encounter Admission Attending Care Care Encounter Source Date/Time Date/Time Type Type Clinicians Facility Department ID 2021-11-02 Outpatient RAYNE Cabral [facility] [id number] Common 10:19:03 Pascual [id number] Spirit - [facility] 2021-10-25 Outpatient Joey NICHOLS VTWILMAR JOSSUE [id number] Univers 08:38:18 GARCÍA [facility] 2021-02-18 Outpatient Joey HANCOCK VTWILMAR OPH [id number] Univers 11:49:18 MICKEY [facility] 2021-02-18 Outpatient Joey HANCOCK VTWILMAR OPH [id number] Univers 07:34:25 MICKEY [facility] 2021-01-27 Outpatient PERIN, SLE Surgery [id number] SLE 00:21:11 HENRIQUE 2021-11-05 2021-11-05 Outpatient Joey NICHOLS [facility] [id number]-20 Univers 08:30:00 08:30:00 GARCÍA [id number] [facility] 2021-11-02 2021-11-02 ambulatory [facility] [id number] Common 00:00:00 00:00:00 [facility] 2021-07-25 2021-07-[address] [facility] [id number] SLE 00:00:00 00:00:00 2021-07-25 2021-07-25 Outside ErrolEdna [facility] [id number] [facility] 00[facility]00 Orders [facility] 2021-06-18 2021-06-22 Inpatient EUGENE [facility] Cardiology [id number] SLE 13:48:00 14:51:00 [facility] 2021-06-18 2021-06-22 [facility] [id number] 13:48:00 14:51:00 Encounter [facility] 2021-06-22 2021-06-22 Surgery ErrolEdna [facility] [id number] 07:25:00 10:35:00 [facility] 2021-06-18 2021-06-18 Travel [facility] [id number] [facility] 00[facility]00 [facility] 2021-06-18 2021-06-18 Orders Kalyan [facility] [id number] 00:00:00 00:00:00 Only [facility] 2020-10-10 2020-10-10 [facility] [id number] Univers 14:07:43 23:59:00 [facility] 2020-10-10 2020-10-10 Hospital [facility] [id number] Univers 14:07:43 23:59:00 Encounter [facility] 350.1.13.10 ity of Surgical 4.2.7.2.686 Van as Specialti [phone] Dc dical es 809 [facility] 2020-10-10 2020-10-10 Outpatient R LELA [facility] [id number] Univers 14:30:00 14:30:00 [facility] 2020-10-10 2020-10-10 [facility] 1.2.840.114 [id number] Univers 14:06:00 14:21:00 Visit [facility] 350.1.13.10 it y of Surgical 4.2.7.2.686 Van as Specialti [id number] Dc dical es 198 [facility] 2020-08-09 2020-08-09 Hospital [facility] [id number] Univers 07:16:00 10:20:00 Encounter Mickey Melissa 350.1.13.10 [place] [id number] [facility] [address] [place] 2020-08-09 2020-08-09 Surgery [facility] 1.2.840.114 [id number] Univers 09:22:00 10:02:00 Mickey Melissa 350.1.13.10 [place] [id number] [facility] [address] [place] 2020-08-08 2020-08-08 Laboratory Only, Adc Test [facility] 1.2.840. 114 [id number] Univers 10:38:41 10:53:41 Only Mickey Hancock 350.1.13.1 0 [place] [phone] [facility] [address] 2020-08-08 2020-08-08 Outpatient R [facility] [id number] Univers 10:45:00 10:45:00 [id number] ity [facility] 2020-08-08 2020-08-08 Outpatient R MARCIA [facility] [id number] Univers 10:45:00 10:45:00 MICKEY ity [facility] 2020-08-08 2020-08-08 Orders Doctor EDNA 1.2.840.114 [id number] Univers 00:00:00 00:00:00 Only Unassigned, AUREA 350.1.13.10 ity of [place] [facility] 4.2.7.2.686 Van as [phone] [facility] [address] 2020-07-19 2020-07-19 Hospital [facility] [id number] Univers 06:44:00 09:14:00 Encounter Mickey Melissa 350.1.13.10 [place] [id number] [facility] [address] 2020-07-19 2020-07-19 Surgery [facility] 1.2.840.114 [id number] Univers 08:00:00 08:42:00 Mickey Melissa 350.1.13.10 [place] [phone] [facility] [address] 2020-07-19 2020-07-19 Orders Doctor EDNA 1.2.840.114 [id number] Univers 00:00:00 00:00:00 Only Unassigned, AUREA 350.1.13.10 ity of [place] [facility] 4.2.7.2.686 Van as [phone] [facility] [address] 2020-07-18 2020-07-18 Laboratory Only, Adc Test [facility] 1.2.840. 114 [id number] Univers 09:26:10 09:41:10 Only Mickey Hancock 350.1.13.1 0 [place] [id number] 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 11:45:00 11:45:00 MICKEY ity of [facility] 2020-07-10 2020-07-10 Orders Doctor BISHOP 1.2.840.114 [id number] Univers 00:00:00 00:00:00 Only Unassigned, AUREA 350.1.13.10 ity of [place] [facility] 4.2.7.2.686 Van as [phone] [place] [address] [address] 2018-08-24 2018-08-24 Outpatient [facility] 9126 [facility] 15:10:00 15:10:00 l Mau [facility] Results Test Description Test Time Test Comments Results Result Comments Source POCT-GLUCOSE METER 2021-06-23 22:56:17 Test Item Value Reference Range Interpretation Comme [facility] POC-GLUCOSE METER (BEAKER) 208 mg/dL 70-110 H : TESTED AT [facility] [address] [facility] (test code = 1538) [place], [address]: Distribution Collection Operator/Techni kd ID = [id number] for MASOOD STARKS RAD, CHEST, 1 VIEW, NON [id number] 13:15:00Reason for exam:->s/p ICD implantShould this be performed at the bedside?->Yes [facility] : 1945 Sex: MFINAL REPORT Exam: RAD, CHEST, 1 VIEW, NON DEPTDate: 06/22/2021 1:13 PM Indication:s/p ICD implantComparison: 06/18/2021 FINDINGS: Lines/Tubes/Devices: Left chest dual-lead AICD in place. Lungs/pleura:Elevated left hemidiaphragm. Improved fluid status. Left base airspace opacity. No pneumothorax. Heart/Mediastinum:Unchanged Bones/Soft Tissues: No acute osseous abnormality. Upper abdomen: Unremarkable. IMPRESSION: Left chest AICD placement, now pneumothorax.Elevated left hemidiaphragm with left base airspace opacity, likely atelectasis. Signed: Pipe Abreu Verified Date/Time: 06/22/2021 13:15:49 Reading Location: [facility] Radiology Reading Room POC-Glucose [id number] 11:34:10 Test Item Value Reference Range Interpretation Comments POC-Glucose Meter (test 154 mg/dL 70-110 H : TE STED AT [facility] code = 1538) [address] [facility], 770 30: Distribution Collection Operator/Techni kd ID = [id number] for Veronika Mcknight Lab Interpretation (test Abnormal code = 07552-1) [facility] [id number] 11:34:10 Test Item Value Reference Range Interpretation Comments POC-GLUCOSE METER 154 mg/dL 70-110 H : TESTED A T [facility] 6720 (BEAKER) (test code = [facility], 1538) 23806: Distribution Collection Operator/Techni kd ID = [id number] for Gilberto CostelloVeronika Basic Metabolic [id number] 05:23:45 Test Item Value Reference Range Interpretation Comments Sodium (test code = 134 meq/L 136-145 L 2951-2) Potassium (test code = 3.6 meq/L 3.5-5.1 2823-3) Chloride (test code = 101 meq/L 98-107 2075-0) CO2 (test code = 21 meq/L 22-29 L 2028-9) BUN (test code = 24 mg/dL 7-21 H 3094-0) Creatinine (test code 1.16 mg/dL 0.57-1.25 = 2160-0) Glucose (test code = 144 mg/dL 70-105 H 2345-7) Calcium (test code = 9.4 mg/dL 8.4-10.2 71122-6) EGFR (test code = 61 mL/min/1.73 [place] [address]-8) NOT ACCURATE CREATININE CLEARANCE IN PREDICTING GLOMERULAR FILTRATION RATE . ESTIMATED GFR I S NOT APPLICABLE FOR DIALYSIS PATIENTS. ELIS (test code = ELIS) Distribution Collection Operator ID - DB Lab Interpretation Abnormal (test code = 87294-5) [facility] [id number] 05:23:45 Test Item Value Reference Range Interpretation Comments SODIUM (BEAKER) 134 meq/L 136-145 L (test code = 381) POTASSIUM (BEAKER) 3.6 meq/L 3.5-5.1 (test code = 379) CHLORIDE (BEAKER) 101 meq/L 98-107 (test code = 382) CO2 (BEAKER) (test 21 meq/L 22-29 L code = 355) BLOOD UREA NITROGEN 24 mg/dL 7-21 H (BEAKER) (test code = 354) CREATININE (BEAKER) 1.16 mg/dL 0.57-1.25 (test code = 358) GLUCOSE RANDOM 144 mg/dL 70-105 H (BEAKER) (test code = 652) CALCIUM (BEAKER) 9.4 mg/dL 8.4-10.2 (test code = 697) EGFR (BEAKER) (test 61 mL/min/1.73 ESTIMA GARCÍA GFR IS code = 1092) sq m NOT ACCURATE CREATININE CLEARANCE IN PREDICTING GLOMERULAR FILTRATION RATE . ESTIMATED GFR I S NOT APPLICABLE FOR DIALYSIS PATIEN TS. Distribution Collection Operator ID - [id number] with platelet count + automated [id number] 05:23:32 Test Item Value Reference Range Interpretation Comments WBC (test code = 6690-2) 6.2 See_Comment [A utomated message] The system [email or web address] generated this result transmitted ref erence range: 3.5 - 10 .5 K/L. The refe rence range was not u sed to interpret this result as normal/abnor mal. RBC (test code = 789-8) 5.35 See_Comment [Au tomated message] The system [email or web address] generated this result transmitted ref erence range: 4.63 - 6 .08 M/L. The refe rence range was not u sed to interpret this result as normal/abnor mal. MCHC (test code = 786-4) 31.2 See_Comment L [A utomated message] The system [employer] generated this result transmitted ref erence range: 32.3 - 3 6.5 GM/DL. The refe rence range was not u sed to interpret this result as normal/abnor mal. Hematocrit (test code = 49.7 % 40.1-51.0 4544-3) MCV (test code = 787-2) 92.9 fL 79.0-92.2 H Disc ordant result compared to pre vious result. Clinica l correlation req uired MCH (test code = 785-6) 29.0 pg 25.7-32.2 RDW (test code = 788-0) 15.7 % 11.6-14.4 H Platelets (test code = 173 See_Comment [Aut omated message] 777-3) The system [employer] generated this result transmitted ref erence range: 150 - 45 0 K/CU MM. The referen ce range was not u sed to interpret this result as normal/abnor mal. MPV (test code = 10.5 fL 9.4-12.4 80489-5) nRBC (test code = 413) 0 See_Comment [Aut omated message] The system [employer] generated this result transmitted ref erence range: 0 - 0 /1 00 WBC. The refere nce range was not u sed to interpret this result as normal/abnor mal. % Neutros (test code = 36 % 429) % Lymphs (test code = 51 % 430) % Monos (test code = 9 % 431) % Eos (test code = 432) 2 % % Baso (test code = 437) 1 % # Neutros (test code = 2.25 See_Comment [Aut omated message] 670) The system [employer] generated this result transmitted ref erence range: 1.78 - 5 .38 K/L. The refe rence range was not u sed to interpret this result as normal/abnor mal. # Lymphs (test code = 3.20 See_Comment [Auto mated message] 414) The system [employer] generated this result transmitted ref erence range: 1.32 - 3 .57 K/L. The refe rence range was not u sed to interpret this result as normal/abnor mal. # Monos (test code = 0.58 See_Comment [Autom ated message] 415) The system [employer] generated this result transmitted ref erence range: 0.30 - 0 .82 K/L. The refe rence range was not u sed to interpret this result as normal/abnor mal. # Eos (test code = 416) 0.13 See_Comment [Au tomated message] The system [employer] generated this result transmitted ref erence range: 0.04 - 0 .54 K/L. The refe rence range was not u sed to interpret this result as normal/abnor mal. # Baso (test code = 417) 0.06 See_Comment [A utomated message] The system [employer] generated this result transmitted ref erence range: 0.01 - 0 .08 K/L. The refe rence range was not u sed to interpret this result as normal/abnor mal. Immature 0 % 0-1 Granulocytes-Relative (test code = 2801) Lab Interpretation (test Abnormal code = 18357-7) [facility] W/PLT COUNT & AUTO [id number] 05:23:32 Test Item Value Reference Range Interpretation Comments WHITE BLOOD CELL COUNT 6.2 K/ L 3.5-10.5 (BEAKER) (test code = 775) RED BLOOD CELL COUNT 5.35 M/ L 4.63-6.08 (BEAKER) (test code = 761) HEMOGLOBIN (BEAKER) 15.5 GM/DL 13.7-17.5 (test code = 410) HEMATOCRIT (BEAKER) 49.7 % 40.1-51.0 (test code = 411) MEAN CORPUSCULAR 92.9 fL 79.0-92.2 H Discordant result VOLUME (BEAKER) (test compar ed to previous code = 753) result. Clinica l correlation req uired MEAN CORPUSCULAR 29.0 pg 25.7-32.2 HEMOGLOBIN (BEAKER) (test code = 751) MEAN CORPUSCULAR 31.2 GM/DL 32.3-36.5 L HEMOGLOBIN CONC (BEAKER) (test code = 752) RED CELL DISTRIBUTION 15.7 % 11.6-14.4 H WIDTH (BEAKER) (test code = 412) PLATELET COUNT 173 K/CU MM 150-450 (BEAKER) (test code = 756) MEAN PLATELET VOLUME 10.5 fL 9.4-12.4 (BEAKER) (test code = 754) NUCLEATED RED BLOOD 0 /100 WBC 0-0 CELLS (BEAKER) (test code = 413) NEUTROPHILS RELATIVE 36 % PERCENT (BEAKER) (test code = 429) LYMPHOCYTES RELATIVE 51 % PERCENT (BEAKER) (test code = 430) MONOCYTES RELATIVE 9 % PERCENT (BEAKER) (test code = 431) EOSINOPHILS RELATIVE 2 % PERCENT (BEAKER) (test code = 432) BASOPHILS RELATIVE 1 % PERCENT (BEAKER) (test code = 437) NEUTROPHILS ABSOLUTE 2.25 K/ L 1.78-5.38 COUNT (BEAKER) (test code = 670) LYMPHOCYTES ABSOLUTE 3.20 K/ L 1.32-3.57 COUNT (BEAKER) (test code = 414) MONOCYTES ABSOLUTE 0.58 K/ L 0.30-0.82 COUNT (BEAKER) (test code = 415) EOSINOPHILS ABSOLUTE 0.13 K/ L 0.04-0.54 COUNT (BEAKER) (test code = 416) BASOPHILS ABSOLUTE 0.06 K/ L 0.01-0.08 COUNT (BEAKER) (test code = 417) IMMATURE 0 % 0-1 GRANULOCYTES-RELATIVE PERCENT (BEAKER) (test code = 2801) POCT-GLUCOSE [id number] 04:27:38 Test Item Value Reference Range Interpretation Comments POC-GLUCOSE METER 134 mg/dL 70-110 H : [facility] (BE[facility]ER[facility] (test code [facility], = 1538) [address]: Distribution Collection Operator/Techni kd ID = [id number] for GUERO HAY [id number] 23:52:06 Test Item Value Reference Range Interpretation Comments PTT (test code = 55.4 See_Comment H [Automated message] 28272-1) The system [email or web address] generated this result transmitted ref erence range: 22.5 - 3 6.0 seconds. The reference range was not used to int erpret this result as normal/abnormal . Lab Interpretation (test Abnormal code = 72596-4) [id number] 23:52:06 Test Item Value Reference Range Interpretation Comments PARTIAL THROMBOPLASTIN TIME 55.4 seconds 22.5-36.0 H (BEAKER) (test code = 760) POCT-GLUCOSE [id number] 16:07:55 Test Item Value Reference Range Interpretation Comments POC-GLUCOSE METER 142 mg/dL 70-110 H : TESTED A T [facility] 6720 (BEAKER) (test code = [facility], 1538) 05751: Distribution Collection Operator/Techni kd ID = [id number] for KAELA MILIAN POCT-GLUCOSE [id number] 15:58:56 Test Item Value Reference Range Interpretation Comments POC-GLUCOSE METER 145 mg/dL 70-110 H : TESTED A T [facility] 67[address] (BEAKER) (test code = [facility], 1538) 64137: Distribution Collection Operator/Techni kd ID = [id number] for NORMA MILIANWANA POCT-GLUCOSE [id number] 12:30:16 Test Item Value Reference Range Interpretation Comments POC-GLUCOSE METER 152 mg/dL 70-110 H : TESTED A T [facility] 6720 (BEAKER) (test code = [facility], 1538) 08698: Distribution Collection Operator/Techni kd ID = [id number] for Kenyatta Arora POCT-GLUCOSE [id number] 07:45:19 Test Item Value Reference Range Interpretation Comments POC-GLUCOSE METER 150 mg/dL 70-110 H : TESTED A T [facility] 67[address] (BEAKER) (test code = [facility], 1538) 08351: Distribution Collection Operator/Techni kd ID = [id number] for KAELA MILIAN BASIC METABOLIC [id number] 05:11:54 Test Item Value Reference Range Interpretation Comments SODIUM (BEAKER) 136 meq/L 136-145 (test code = 381) POTASSIUM (BEAKER) 3.4 meq/L 3.5-5.1 L (test code = 379) CHLORIDE (BEAKER) 99 meq/L 98-107 (test code = 382) CO2 (BEAKER) (test 24 meq/L 22-29 code = 355) BLOOD UREA NITROGEN 21 mg/dL 7-21 (BEAKER) (test code = 354) CREATININE (BEAKER) 1.13 mg/dL 0.57-1.25 (test code = 358) GLUCOSE RANDOM 163 mg/dL 70-105 H (BEAKER) (test code = 652) CALCIUM (BEAKER) 9.5 mg/dL 8.4-10.2 (test code = 697) EGFR (BEAKER) (test 63 mL/min/1.73 ESTIMA GARCÍA GFR IS code = 1092) sq m NOT ACCURATE CREATININE CLEARANCE IN PREDICTING GLOMERULAR FILTRATION RATE . ESTIMATED GFR I S NOT APPLICABLE FOR DIALYSIS PATIEN TS. Distribution Collection Operator ID - LINNEA [id number] 02:42:55 Test Item Value Reference Range Interpretation Comments PARTIAL THROMBOPLASTIN TIME 64.1 seconds 22.5-36.0 H (BEAKER) (test code = 760) CBC W/PLT COUNT & AUTO [id number] 02:36:49 Test Item Value Reference Range Interpretation Comments WHITE BLOOD CELL COUNT (BEAKER) 6.8 K/ L 3.5-10.5 (test code = 775) RED BLOOD CELL COUNT (BEAKER) 4.87 M/ L 4.63-6.08 (test code = 761) HEMOGLOBIN (BEAKER) (test code = 14.0 GM/DL 13.7-17.5 410) HEMATOCRIT (BEAKER) (test code = 42.8 % 40.1-51.0 411) MEAN CORPUSCULAR VOLUME (BEAKER) 87.9 fL 79.0-92.2 (test code = 753) MEAN CORPUSCULAR HEMOGLOBIN 28.7 pg 25.7-32.2 (BEAKER) (test code = 751) MEAN CORPUSCULAR HEMOGLOBIN CONC 32.7 GM/DL 32.3-36.5 (BEAKER) (test code = 752) RED CELL DISTRIBUTION WIDTH 15.6 % 11.6-14.4 H (BEAKER) (test code = 412) PLATELET COUNT (BEAKER) (test 165 K/CU MM 150-450 code = 756) MEAN PLATELET VOLUME (BEAKER) 10.5 fL 9.4-12.4 (test code = 754) NUCLEATED RED BLOOD CELLS 0 /100 WBC 0-0 (BEAKER) (test code = 413) NEUTROPHILS RELATIVE PERCENT 40 % (BEAKER) (test code = 429) LYMPHOCYTES RELATIVE PERCENT 46 % (BEAKER) (test code = 430) MONOCYTES RELATIVE PERCENT 10 % (BEAKER) (test code = 431) EOSINOPHILS RELATIVE PERCENT 3 % (BEAKER) (test code = 432) BASOPHILS RELATIVE PERCENT 1 % (BEAKER) (test code = 437) NEUTROPHILS ABSOLUTE COUNT 2.73 K/ L 1.78-5.38 (BEAKER) (test code = 670) LYMPHOCYTES ABSOLUTE COUNT 3.12 K/ L 1.32-3.57 (BEAKER) (test code = 414) MONOCYTES ABSOLUTE COUNT (BEAKER) 0.67 K/ L 0.30-0.82 (test code = 415) EOSINOPHILS ABSOLUTE COUNT 0.17 K/ L 0.04-0.54 (BEAKER) (test code = 416) BASOPHILS ABSOLUTE COUNT (BEAKER) 0.06 K/ L 0.01-0.08 (test code = 417) IMMATURE GRANULOCYTES-RELATIVE 0 % 0-1 PERCENT (BEAKER) (test code = 2801) POCT-GLUCOSE [id number] 20:59:34 Test Item Value Reference Range Interpretation Comments POC-GLUCOSE METER 138 mg/dL 70-110 H : TESTED A T [facility] [address] (BEAKER) (test code [facility], = 1538) 10915: Distribution Collection Operator/Techni kd ID = [id number] for WOOD Lynn MARKELL, GUERO [id number] 18:40:25 Test Item Value Reference Range Interpretation Comments PARTIAL THROMBOPLASTIN TIME 50.4 seconds 22.5-36.0 H (BEAKER) (test code = 760) POCT-GLUCOSE [id number] 17:32:18 Test Item Value Reference Range Interpretation Comments POC-GLUCOSE METER 215 mg/dL 70-110 H : TESTED A T [facility] 6720 (BEAKER) (test code = [facility], 1538) 73361: Distribution Collection Operator/Techni kd ID = [id number] for REGIS INTERIANO KAELA [id number] 11:57:58 Test Item Value Reference Range Interpretation Comments PARTIAL THROMBOPLASTIN TIME 63.8 seconds 22.5-36.0 H (BEAKER) (test code = 760) POCT-GLUCOSE [id number] 11:19:19 Test Item Value Reference Range Interpretation Comments POC-GLUCOSE METER 145 mg/dL 70-110 H : TESTED Aleksander Sanders [facility] [address] (BEAKER) (test code = [facility] [place], 1538) [address]45[address]: Distribution Collection Operator/Techni kd ID = [id number] for KAELA MILIAN Manual [id number] 07:21:12 Test Item Value Reference Range Interpretation Comments % Neutros (test code = 61 % 2816) % Lymphs (test code = 32 % 2817) % Monos (test code = 5 % 2818) % Eos (test code = 1 % 2819) % Atypical Lymphs (test 1 % 0-0 H code = 2829) # Neutros (test code = 3.72 K/ul 1.78-5.38 2830) # Lymphs (test code = 1.95 K/ul 1.32-3.57 2831) # Monos (test code = 0.31 K/uL 0.30-0.82 2832) # Eos (test code = 0.06 K/uL 0.04-0.54 2834) # Atypical Lymphs (test 0.06 K/uL 0.00-0.00 H code = 2858) Total Counted (test 100 code = 1351) WBC Morphology (test Normal code = 487) Platelet Morphology Normal (test code = 486) Polychromasia (test 1+ few code = 478) Anisocytosis (test code 1+ few = 961) Microcytes (test code = 1+ few 965) Artifact (test code = Present 3432) Platelet Conc (test Adequate code = 3438) ELIS (test code = ELIS) Distribution Collection Operator ID - Cris Héctor comments: Slide comments: Lab Interpretation Abnormal (test code = 40102-0) [facility](CELLAVISION MANUAL DIFF)2021-06-20 07:21:12 Test Item Value Reference Range Interpretation Comments NEUTROPHILS - REL 61 % (CELLAVISION)(BEAKER) (test code = 2816) LYMPHOCYTES - REL 32 % (CELLAVISION)(BEAKER) (test code = 2817) MONOCYTES - REL 5 % (CELLAVISION)(BEAKER) (test code = 2818) EOSINOPHILS - REL 1 % (CELLAVISION)(BEAKER) (test code = 2819) ATYPICAL LYMPHOCYTES - REL 1 % 0-0 H (CELLAVISION)(BEAKER) (test code = 2829) NEUTROPHILS - ABS 3.72 K/ul 1.78-5.38 (CELLAVISION)(BEAKER) (test code = 2830) LYMPHOCYTES - ABS 1.95 K/ul 1.32-3.57 (CELLAVISION)(BEAKER) (test code = 2831) MONOCYTES - ABS 0.31 K/uL 0.30-0.82 (CELLAVISION)(BEAKER) (test code = 2832) EOSINOPHILS - ABS 0.06 K/uL 0.04-0.54 (CELLAVISION)(BEAKER) (test code = 2834) ATYPICAL LYMPHOCYTES - ABS 0.06 K/uL 0.00-0.00 H (CELLAVISION)(BEAKER) (test code = 2858) TOTAL COUNTED (BEAKER) (test code = 100 1351) WBC MORPHOLOGY (BEAKER) (test code Normal = 487) PLT MORPHOLOGY (BEAKER) (test code Normal = 486) POLYCHROMATOPHILLIC RBCS(BEAKER) 1+ few (test code = 478) ANISOCYTOSIS (BEAKER) (test code = 1+ few 961) MICROCYTES (BEAKER) (test code = 1+ few 965) ARTIFACT (CELLAVISION)(BEAKER) Present (test code = 3432) PLATELET CONCENTRATION Adequate (CELLAVISION)(BEAKER) (test code = 3438) Distribution Collection Operator ID - Cris Anaya comments: Slide comments:CBC W/PLT COUNT & AUTO [id number] 07:21:11 Test Item Value Reference Range Interpretation Comments WHITE BLOOD CELL COUNT (BEAKER) 6.1 K/ L 3.5-10.5 (test code = 775) RED BLOOD CELL COUNT (BEAKER) 4.93 M/ L 4.63-6.08 (test code = 761) HEMOGLOBIN (BEAKER) (test code = 14.2 GM/DL 13.7-17.5 410) HEMATOCRIT (BEAKER) (test code = 43.5 % 40.1-51.0 411) MEAN CORPUSCULAR VOLUME (BEAKER) 88.2 fL 79.0-92.2 (test code = 753) MEAN CORPUSCULAR HEMOGLOBIN 28.8 pg 25.7-32.2 (BEAKER) (test code = 751) MEAN CORPUSCULAR HEMOGLOBIN CONC 32.6 GM/DL 32.3-36.5 (BEAKER) (test code = 752) RED CELL DISTRIBUTION WIDTH 15.7 % 11.6-14.4 H (BEAKER) (test code = 412) PLATELET COUNT (BEAKER) (test 158 K/CU MM 150-450 code = 756) MEAN PLATELET VOLUME (BEAKER) 10.7 fL 9.4-12.4 (test code = 754) NUCLEATED RED BLOOD CELLS 0 /100 WBC 0-0 (BEAKER) (test code = 413) POCT-GLUCOSE [id number] 07:00:59 Test Item Value Reference Range Interpretation Comments POC-GLUCOSE METER 146 mg/dL 70-110 H : TESTED A T [facility] (BEAKER) (test code = [place], 1538) [address]: Distribution Collection Operator/Techni kd ID = [id number] for Jorge Griffiths [id number] 04:49:29 Test Item Value Reference Range Interpretation Comments Magnesium (test code = 2.0 mg/dL 1.6-2.6 34570-5) ELIS (test code = ELIS) Distribution Collection Operator ID - SUDHIR M Lab Interpretation (test Normal code = 06471-9) [facility] 04:49:29 Test Item Value Reference Range Interpretation Comments MAGNESIUM (BEAKER) (test code = 2.0 mg/dL 1.6-2.6 627) Distribution Collection Operator ID - SUDHIR MBASIC METABOLIC [id number] 04:49:28 Test Item Value Reference Range Interpretation Comments SODIUM (BEAKER) 138 meq/L 136-145 (test code = 381) POTASSIUM (BEAKER) 3.5 meq/L 3.5-5.1 (test code = 379) CHLORIDE (BEAKER) 100 meq/L 98-107 (test code = 382) CO2 (BEAKER) (test 26 meq/L 22-29 code = 355) BLOOD UREA NITROGEN 20 mg/dL 7-21 (BEAKER) (test code = 354) CREATININE (BEAKER) 1.07 mg/dL 0.57-1.25 (test code = 358) GLUCOSE RANDOM 134 mg/dL 70-105 H (BEAKER) (test code = 652) CALCIUM (BEAKER) 9.4 mg/dL 8.4-10.2 (test code = 697) EGFR (BEAKER) (test 67 mL/min/1.73 ESTIMA GARCÍA GFR IS code = 1092) sq m NOT ACCURATE CREATININE CLEARANCE IN PREDICTING GLOMERULAR FILTRATION RATE . ESTIMATED GFR I S NOT APPLICABLE FOR DIALYSIS PATIEN TS. Distribution Collection Operator ID - SUDHIR [id number] 04:36:46 Test Item Value Reference Range Interpretation Comments PARTIAL THROMBOPLASTIN TIME 39.6 seconds 22.5-36.0 H (BEAKER) (test code = 760) POCT-GLUCOSE [id number] 22:06:28 Test Item Value Reference Range Interpretation Comments POC-GLUCOSE METER 125 mg/dL 70-110 H : TESTED A T [facility] 6720 ([place]IL[place] PURE) (test code = [facility] [employer] [place], 1538) [address]: Distribution Collection Operator/Techni kd ID = [id number] for Jorge Griffiths [id number] 19:59:34 Test Item Value Reference Range Interpretation Comments PARTIAL THROMBOPLASTIN TIME 31.7 seconds 22.5-36.0 (BEAKER) (test code = 760) 2D Echo W/Doppler(CW/PW/Color)2021-06-19 17:55:19Ejection FractionSLEH ECHO HEARTLAB MKCKESSON [facility] [id number] 16:46:33 Test Item Value Reference Range Interpretation Comments POC-GLUCOSE METER 133 mg/dL 70-110 H : TESTED A T [facility] 6720 (BEAKER) (test code = [employer], 1538) [address]: Distribution Collection Operator/Techni kd ID = [id number] for Veronika Ennis Hemoglobin [id number] 11:43:14 Test Item Value Reference Range Interpretation Comments Hemoglobin A1C (test 6.9 % See_Comment H [Autom ated code = 4549-2) message] The system which generated this result transmitted reference range : <=5.6%. The reference range was not used to interpret this result as normal/abnormal . ELIS (test code = ELIS) "The A1c is measured using a NGSP-certified method. HbA1c value equal to or greater than 6.5% as the diagnosis cutoff for diabetes. An HbA1c value of 5.7-6.4% indicates increased risk for diabetes (prediabetes)."Op erator ID - ADMOperator ID - ADM Lab Interpretation Abnormal (test code = 47966-4) [facility]MO[facility] [id number] 11:43:14 Test Item Value Reference Range Interpretation Comments HEMOGLOBIN A1C 6.9 % See_Comment H [Automated m essage] ELECTROPHORESIS ([facility]) The system which (test code = 3811) generated this result transmitted ref erence range: <=5.6%. The reference range was not used to int erpret this result as normal/abnormal . "The A1c is measured using a NGSP-certified method. HbA1c value equal to or greater than 6.5% as thediagnosis cutoff for diabetes. An HbA1c value of 5.7- 6.4% indicates increased risk for diabetes (prediabetes)."Distribution Collection Operator ID - ADMOperator ID - ADMPOCT-GLUCOSE [id number] 11:31:28 Test Item Value Reference Range Interpretation Comments POC-GLUCOSE METER 177 mg/dL 70-110 H : TESTED A T [facility] ([facility]) (test code = [place] [employer], 1538) [address]: Distribution Collection Operator/Techni kd ID = [id number] for Veronika Ennis [id number] 10:50:49 Test Item Value Reference Range Interpretation Comments PARTIAL THROMBOPLASTIN TIME 28.9 seconds 22.5-36.0 (AKER) (test code = 760) Platelet [id number] 10:35:22 Test Item Value Reference Range Interpretation Comments Platelets (test code 163 See_Comment [Autom ated = 777-3) message] The system which generated this result transmit garcía reference range : 150 - 450 K/CU MM. The reference range was not u sed to interpret th is result as normal/abnormal . ELIS (test code = ELIS) Distribution Collection Operator ID - [id number] Lab Interpretation Normal (test code = 33860-8) [facility] HospitalPLATELET [id number] 10:35:22 Test Item Value Reference Range Interpretation Comments PLATELET COUNT (BEAKER) (test 163 K/CU MM 150-450 code = 756) Distribution Collection Operator ID - [id number]-GLUCOSE [id number] 07:14:16 Test Item Value Reference Range Interpretation Comments POC-GLUCOSE METER 135 mg/dL 70-110 H : TESTED A T [facility] [address] (BEAKER) (test code = [place], 1538) [address]: Distribution Collection Operator/Techni kd ID = [id number] for Jorge Griffiths [id number] 06:47:30 Test Item Value Reference Range Interpretation Comments MAGNESIUM (BEAKER) (test code = 2.0 mg/dL 1.6-2.6 627) Distribution Collection Operator ID - EOBASIC METABOLIC [id number] 06:47:29 Test Item Value Reference Range Interpretation Comments SODIUM (BEAKER) 139 meq/L 136-145 (test code = 381) POTASSIUM (BEAKER) 3.7 meq/L 3.5-5.1 (test code = 379) CHLORIDE (BEAKER) 104 meq/L 98-107 (test code = 382) CO2 (BEAKER) (test 26 meq/L 22-29 code = 355) BLOOD UREA NITROGEN 22 mg/dL 7-21 H (BEAKER) (test code = 354) CREATININE (BEAKER) 1.08 mg/dL 0.57-1.25 (test code = 358) GLUCOSE RANDOM 128 mg/dL 70-105 H (BEAKER) (test code = 652) CALCIUM (BEAKER) 9.7 mg/dL 8.4-10.2 (test code = 697) EGFR (BEAKER) (test 66 mL/min/1.73 ESTIMA GARCÍA GFR IS code = 1092) sq m NOT ACCURATE CREATININE CLEARANCE IN PREDICTING GLOMERULAR FILTRATION RATE . ESTIMATED GFR I S NOT APPLICABLE FOR DIALYSIS PATIEN TS. Distribution Collection Operator ID - EOCBC W/PLT COUNT & AUTO [id number] 06:35:23 Test Item Value Reference Range Interpretation Comments WHITE BLOOD CELL COUNT (BEAKER) 6.2 K/ L 3.5-10.5 (test code = 775) RED BLOOD CELL COUNT (BEAKER) 4.90 M/ L 4.63-6.08 (test code = 761) HEMOGLOBIN (BEAKER) (test code = 14.1 GM/DL 13.7-17.5 410) HEMATOCRIT (BEAKER) (test code = 44.1 % 40.1-51.0 411) MEAN CORPUSCULAR VOLUME (BEAKER) 90.0 fL 79.0-92.2 (test code = 753) MEAN CORPUSCULAR HEMOGLOBIN 28.8 pg 25.7-32.2 (BEAKER) (test code = 751) MEAN CORPUSCULAR HEMOGLOBIN CONC 32.0 GM/DL 32.3-36.5 L (BEAKER) (test code = 752) RED CELL DISTRIBUTION WIDTH 15.8 % 11.6-14.4 H (BEAKER) (test code = 412) PLATELET COUNT (BEAKER) (test 153 K/CU MM 150-450 code = 756) MEAN PLATELET VOLUME (BEAKER) 10.5 fL 9.4-12.4 (test code = 754) NUCLEATED RED BLOOD CELLS 0 /100 WBC 0-0 (BEAKER) (test code = 413) NEUTROPHILS RELATIVE PERCENT 48 % (BEAKER) (test code = 429) LYMPHOCYTES RELATIVE PERCENT 37 % (BEAKER) (test code = 430) MONOCYTES RELATIVE PERCENT 11 % (BEAKER) (test code = 431) EOSINOPHILS RELATIVE PERCENT 2 % (BEAKER) (test code = 432) BASOPHILS RELATIVE PERCENT 1 % (BEAKER) (test code = 437) NEUTROPHILS ABSOLUTE COUNT 3.01 K/ L 1.78-5.38 (BEAKER) (test code = 670) LYMPHOCYTES ABSOLUTE COUNT 2.31 K/ L 1.32-3.57 (BEAKER) (test code = 414) MONOCYTES ABSOLUTE COUNT (BEAKER) 0.70 K/ L 0.30-0.82 (test code = 415) EOSINOPHILS ABSOLUTE COUNT 0.14 K/ L 0.04-0.54 (BEAKER) (test code = 416) BASOPHILS ABSOLUTE COUNT (BEAKER) 0.04 K/ L 0.01-0.08 (test code = 417) IMMATURE GRANULOCYTES-RELATIVE 0 % 0-1 PERCENT (BEAKER) (test code = 2801) POCT-GLUCOSE [id number] 21:27:08 Test Item Value Reference Range Interpretation Comments POC-GLUCOSE METER 167 mg/dL 70-110 H : TESTED A T [facility] (BEAKER) (test code = [place], 1538) [address]: Distribution Collection Operator/Techni dk ID = [id number] for Jorge Griffiths SARS-CoV2/RT-PCR (Asymptomatic ONLY)2021-06-18 20:32:39 Test Item Value Reference Range Interpretation Comments SARS-COV2/RT-PCR Negative Not Detected, (test code = Negative, See 78517-9) external report for linked test SARS-COV-2 [facility] (test code = 60151-4) ELIS (test code = Negative result for this ELIS) test determines that SARS-CoV-2 RNA was not present in the specimen above the Limit of Detection (LOD). However, Negative results do not preclude SARS-CoV-2 infection and should not be used as the sole basis for treatment or patient management decisions. Negative results must be combined with clinical observations, patient history, and epidemiological information. A false negative result may occur if a specimen is improperly collected, transported or handled. A false negative result should be considered if patient's recent exposures or clinical presentation indicate that COVID-19 (SARS-CoV-2) is likely and diagnostic tests for other causes of illness are negative. Re-testing should be considered in cases of suspected false negatives. The limit of detection for this assay is 800 copies/mL. This SARS CoV-2 test is a real-time RT-PCR test intended for the qualitative detection of nucleic acid from SARS-CoV-2 in a nasopharyngeal swab specimen collected from individuals suspected of COVID-19 by their healthcare provider. This test has not been Food and Drug Administration (FDA) cleared or approved. This is a modified version of an approved Emergency Use Authorization (EUA) and is in the process of review by the FDA. Once authorized by the FDA, the issued EUA will be effective until the declaration that circumstances exist justifying the authorization of the emergency use of in vitro diagnostic tests for detection and/or diagnosis of COVID-19 is terminated under Section 564(b)(2) of the Act or the EUA is revoked under Section 564(g) of the Act. Fact Sheet for Healthcare Providers:https://www.[employer]/sites/default/f kamari/product/documents/F act_Sheet_HC_Providers_L yuz_OKOY-QmW-0.pdf Fact Sheet for Healthcare Patients:https://www.[employer]/sites/default/fi les/product/documents/Fa ct_Sheet_Patients_Lyra_S ARS-CoV-2.pdf Performing Laboratory:[facility] [place] [address] [facility]2021-06-18 20:32:39 Test Item Value Reference Range Interpretation Comments SARS-COV2/RT-PCR (test Negative Not Detected, Negative, code = 5431895) See external report for linked test SARS-COV-2 PERFORMING LAB [facility] (test code = 8245278) Negative result for this test determines that SARS-CoV-2 RNA was not present in the specimen above the Limit of Detection (LOD). However, Negative results do not preclude SARS-CoV-2 infection and should not be used as the sole basis for treatment or patient management decisions. Negative results must be combined with clinical observations, patient history, and epidemiological information. A false negative result may occur if a specimen is improperly collected, transported or handled. A false negative result should be considered if patient's recent exposures or clinical presentation indicate that COVID-19 (SARS-CoV-2) is likely and diagnostic tests for other causes of illness are negative. Re-testing should be considered in cases of suspected false negatives.The limit of detection for this assay is 800 copies/mL.This SARS CoV-2 test is a real-time RT-PCR test intended for the qualitative detection of nucleic acid from SARS-CoV-2 in a nasopharyngeal swab specimen collected from individuals suspected of COVID-19 by their healthcare provider.This test has not been Food and Drug Administration (FDA) cleared or approved. This is a modified version of an approved Emergency Use Authorization (EUA) and is in the process of review by the FDA. Once authorized by the FDA, the issued EUA will be effective until the declaration that circumstances exist justifying the authorization of the emergency use ofin vitro diagnostic tests for detection and/or diagnosis of COVID-19 is terminated under Section 564(b)(2) of the Act or the EUA is revoked under Section 564(g) of the Act.Fact Sheet for Healthcare Prov iders:https://www.[employer]/sites/default/files/product/documents/Fact_Sheet_HC _Byauaxoop_Almt_JEWL-PkY-3.pdfFact Sheet for Healthcare Patients:https://www.[employer]/sites/default/files/product/docume nts/Ejwi_Zidrd_Eovhaggg_Mkzl_NRSI-BpB-9.pdfPerforming Laboratory:[facility], [place] [address]QPMG-DFZCKPR METER 2021-06-18 16:54:38 Test Item Value Reference Range Interpretation Comments POC-GLUCOSE METER 113 mg/dL 70-110 H : TESTED A T [facility] [address] (BEAKER) (test code = [employer]ARIA[employer]SE [employer], 1538) [address]: Distribution Collection Operator/Techni kd ID = [id number] for Karen Breen B-type Natriuretic Factor (BNP)2021-06-18 16:33:46 Test Item Value Reference Range Interpretation Comments BNP (test code = 50548-8) 94 pg/mL 0-100 ELIS (test code = ELIS) Distribution Collection Operator ID - DB Lab Interpretation (test Normal code = 35557-3) [facility] NATRI[facility] FACTOR (BNP)2021-06-18 16:33:46 Test Item Value Reference Range Interpretation Comments B-TYPE NATRIURETIC PEPTIDE (BEAKER) 94 pg/mL 0-100 (test code = 700) Distribution Collection Operator ID - DBLipid [id number] 16:28:07 Test Item Value Reference Range Interpretation Comments Triglycerides (test 173 mg/dL Specimen code = 2571-8) moderately hemolyzed Cholesterol (test 171 mg/dL Specimen code = 2093-3) moderately hemolyzed HDL (test code = 45 mg/dL 5-9) LDL Calculated (test 91 mg/dL code = 19305-4) ELIS (test code = Triglyceride ELIS) Reference Range: Low Risk <150 Borderline 150-199 High Risk 200-499 Very High Risk >=500 Cholesterol Reference Range: Low Risk <200 Borderline 200-239 High Risk >240 HDL Cholesterol Reference Range: Low Risk >=60 High Risk <40 LDL Cholesterol Reference Range: Optimal <100 Near Optimal 100-129 Borderline 130-159 High 160-189 Very High >=190 Distribution Collection Operator ID - DB [facility] HospitalHepatic function [id number] 16:28:07 Test Item Value Reference Range Interpretation Comments Protein, Total (test 7.5 See_Comment Specime n code = 2885-2) moderately hemolyzed [Automated message] The system which generated this result transmit garcía reference range : 6.0 - 8.3 gm/dL . The reference range was not u sed to interpret th is result as normal/abnormal . Albumin (test code = 3.9 g/dL 3.5-5.0 [place] n [address]-8) moderately hemolyzed Total Bilirubin (test 0.6 mg/dL 0.2-1.2 Specim en code = 1975-2) moderately hemolyzed Bilirubin, Direct 0.2 mg/dL 0.1-0.5 Specimen (test code = 1967-7) moderat maureen hemolyzed Alkaline Phosphatase 67 U/L 40-150 (test code = 6768-6) AST (test code = 23 U/L 5-34 Specimen 1920-8) moderately hemolyzed ALT (test code = 16 U/L 6-55 Specimen 1742-6) moderately hemolyzed ELIS (test code = ELIS) Distribution Collection Operator ID - DB Lab Interpretation Normal (test code = 95166-6) [facility] HospitalLIPID [id number] 16:28:07 Test Item Value Reference Range Interpretation Comments TRIGLYCERIDES (BEAKER) 173 mg/dL Speci men moderately (test code = 540) hemolyzed CHOLESTEROL (BEAKER) 171 mg/dL Specime n moderately (test code = 631) hemolyzed HDL CHOLESTEROL (BEAKER) 45 mg/dL (test code = 976) LDL CHOLESTEROL 91 mg/dL CALCULATED (BEAKER) (test code = 633) Triglyceride Reference Range: Low Risk <150 Borderline 150-199 High Risk 200- 499 Very High Risk >=500Cholesterol Reference Range: Low Risk <200 Borderline 200-239 High Risk >240HDL Cholesterol Reference Range: Low Risk >=60 High Risk <40LDL Cholesterol Reference Range: Optimal <100 Near Optimal 100-129 Borderline 130-159 High 160-189 Very High >=190 Distribution Collection Operator ID - DBHEPATIC FUNCTION [id number] 16:28:07 Test Item Value Reference Range Interpretation Comments TOTAL PROTEIN (BEAKER) 7.5 gm/dL 6.0-8.3 Speci men moderately (test code = 770) hemolyzed ALBUMIN (BEAKER) (test 3.9 g/dL 3.5-5.0 Speci men moderately code = 1145) hemolyzed BILIRUBIN TOTAL 0.6 mg/dL 0.2-1.2 Specimen mod erately (BEAKER) (test code = hemoly zed 377) BILIRUBIN DIRECT 0.2 mg/dL 0.1-0.5 Specimen mo derately (BEAKER) (test code = hemoly zed 706) ALKALINE PHOSPHATASE 67 U/L 40-150 (BEAKER) (test code = 346) AST (SGOT) (BEAKER) 23 U/L 5-34 Specimen moderately (test code = 353) hemolyzed ALT (SGPT) (BEAKER) 16 U/L 6-55 Specimen moderately (test code = 347) hemolyzed Distribution Collection Operator ID - DBComprehensive metabolic [id number] 16:28:06 Test Item Value Reference Range Interpretation Comments Protein, Total (test 7.5 See_Comment Specime n code = 2885-2) moderately hemolyzed [Automated message] The system which generated this result transmit garcía reference range : 6.0 - 8.3 gm/dL . The reference range was not u sed to interpret th is result as normal/abnormal . Albumin (test code = 3.9 g/dL 3.5-5.0 [place] n [address]-4) moderately hemolyzed Alkaline Phosphatase 67 U/L 40-150 (test code = 6768-6) Total Bilirubin (test 0.6 mg/dL 0.2-1.2 Specim en code = 1974-) moderately hemolyzed Sodium (test code = 138 meq/L 063-269 1344-2) Potassium (test code 4.1 meq/L 3.5-5.1 Specime n = 2823-3) moderately hemolyzed Chloride (test code = 106 meq/L 98-107 2074-0) CO2 (test code = 22 meq/L -29 2027-12) BUN (test code = 21 mg/dL 7-3093-0) Creatinine (test code 1.13 mg/dL 0.57-1.25 Specim en = 2159-0) moderately hemolyzed Glucose (test code = 168 mg/dL 70-105 H 2345-7) Calcium (test code = 9.7 mg/dL 8.4-10.2 37912-1) AST (test code = 23 U/L 5-34 Specimen 1920-8) moderately hemolyzed ALT (test code = 16 U/L 6-55 Specimen 1742-6) moderately hemolyzed EGFR (test code = 63 mL/min/1.73 [place] [address]-7) NOT ACCURATE CREATININE CLEARANCE IN PREDICTING GLOMERULAR FILTRATION RATE . ESTIMATED GFR I S NOT APPLICABLE FOR DIALYSIS PATIEN TS. ELIS (test code = ELIS) Distribution Collection Operator ID - DB Lab Interpretation Abnormal (test code = 83185-5) [id number] 16:28:06 Test Item Value Reference Range Interpretation Comments MAGNESIUM (BEAKER) 1.8 mg/dL 1.6-2.6 Specimen moderately (test code = 627) hemolyzed Distribution Collection Operator ID - DBCOMPREHENSIVE METABOLIC [id number] 16:28:06 Test Item Value Reference Range Interpretation Comments TOTAL PROTEIN 7.5 gm/dL 6.0-8.3 Specimen moder ately (BEAKER) (test code = hemoly zed 770) ALBUMIN (BEAKER) 3.9 g/dL 3.5-5.0 Specimen mo derately (test code = 1145) hemolyzed ALKALINE PHOSPHATASE 67 U/L 40-150 (BEAKER) (test code = 346) BILIRUBIN TOTAL 0.6 mg/dL 0.2-1.2 Specimen mod erately (BEAKER) (test code = hemoly zed 377) SODIUM (BEAKER) (test 138 meq/L 136-145 code = 381) POTASSIUM (BEAKER) 4.1 meq/L 3.5-5.1 Specimen moderately (test code = 379) hemolyzed CHLORIDE (BEAKER) 106 meq/L 98-107 (test code = 382) CO2 (BEAKER) (test 22 meq/L 22-29 code = 355) BLOOD UREA NITROGEN 21 mg/dL 7-21 (BEAKER) (test code = 354) CREATININE (BEAKER) 1.13 mg/dL 0.57-1.25 Specimen moderately (test code = 358) hemolyzed GLUCOSE RANDOM 168 mg/dL 70-105 H (BEAKER) (test code = 652) CALCIUM (BEAKER) 9.7 mg/dL 8.4-10.2 (test code = 697) AST (SGOT) (BEAKER) 23 U/L 5-34 Specimen moderately (test code = 353) hemolyzed ALT (SGPT) (BEAKER) 16 U/L 6-55 Specimen moderately (test code = 347) hemolyzed EGFR (BEAKER) (test 63 mL/min/1.73 ESTIMA GARCÍA GFR IS code = 1092) sq m NOT ACCURATE CREATININE CLEARANCE IN PREDICTING GLOMERULAR FILTRATION RATE . ESTIMATED GFR I S NOT APPLICABLE FOR DIALYSIS PATIEN TS. Distribution Collection Operator ID - DBCBC W/PLT COUNT & AUTO [id number] 16:04:57 Test Item Value Reference Range Interpretation Comments WHITE BLOOD CELL COUNT (BEAKER) 7.2 K/ L 3.5-10.5 (test code = 775) RED BLOOD CELL COUNT (BEAKER) 4.90 M/ L 4.63-6.08 (test code = 761) HEMOGLOBIN (BEAKER) (test code = 14.2 GM/DL 13.7-17.5 410) HEMATOCRIT (BEAKER) (test code = 43.7 % 40.1-51.0 411) MEAN CORPUSCULAR VOLUME (BEAKER) 89.2 fL 79.0-92.2 (test code = 753) MEAN CORPUSCULAR HEMOGLOBIN 29.0 pg 25.7-32.2 (BEAKER) (test code = 751) MEAN CORPUSCULAR HEMOGLOBIN CONC 32.5 GM/DL 32.3-36.5 (BEAKER) (test code = 752) RED CELL DISTRIBUTION WIDTH 15.8 % 11.6-14.4 H (BEAKER) (test code = 412) PLATELET COUNT (BEAKER) (test 179 K/CU MM 150-450 code = 756) MEAN PLATELET VOLUME (BEAKER) 10.5 fL 9.4-12.4 (test code = 754) NUCLEATED RED BLOOD CELLS 0 /100 WBC 0-0 (BEAKER) (test code = 413) NEUTROPHILS RELATIVE PERCENT 68 % (BEAKER) (test code = 429) LYMPHOCYTES RELATIVE PERCENT 24 % (BEAKER) (test code = 430) MONOCYTES RELATIVE PERCENT 7 % (BEAKER) (test code = 431) EOSINOPHILS RELATIVE PERCENT 0 % (BEAKER) (test code = 432) BASOPHILS RELATIVE PERCENT 0 % (BEAKER) (test code = 437) NEUTROPHILS ABSOLUTE COUNT 4.87 K/ L 1.78-5.38 (BEAKER) (test code = 670) LYMPHOCYTES ABSOLUTE COUNT 1.73 K/ L 1.32-3.57 (BEAKER) (test code = 414) MONOCYTES ABSOLUTE COUNT (BEAKER) 0.53 K/ L 0.30-0.82 (test code = 415) EOSINOPHILS ABSOLUTE COUNT 0.03 K/ L 0.04-0.54 L (BEAKER) (test code = 416) BASOPHILS ABSOLUTE COUNT (BEAKER) 0.03 K/ L 0.01-0.08 (test code = 417) IMMATURE GRANULOCYTES-RELATIVE 0 % 0-1 PERCENT (BEAKER) (test code = 2801) RAD, CHEST, 1 VIEW, NON [id number] 15:43:00Reason for exam:->shortness of breathShould this be performed at the bedside?->Yes [facility] : 1945 Sex: MFINAL REPORT Exam: RAD, CHEST, 1 VIEW, NON DEPTDate: 06/18/2021 3:41 PM Indication:shortness of breathComparison: 03/09/2019 FINDINGS: Lines/Tubes/Devices: None Lungs/pleura:Lungs arewell inflated. Elevated left hemidiaphragm. Right hemithorax displays interstitial prominence. Traceleft effusion pleural effusion. No pneumothorax. Heart/Mediastinum:Unchanged Bones/Soft Tissues: No acute osseous abnormality. Upper abdomen: Unremarkable. IMPRESSION:Elevated left hemidiaphragm.Right hemithorax interstitial prominence, may represent interstitial edema versus atypical infectious process.Trace left effusion. Signed: Pipe Abreu Verified Date/Time: 06/18/2021 15:43:40 [facility] [place] [facility] POCT GLUCOSE (AUTOMATED) 2020-08-09 18:49:00 Test Item Value Reference Range Interpretation Comments POCT GLU (test code = 6560279617) 157 mg/dL 70-110 H Lab Interpretation (test code = Abnormal 37698-1) [facility] GLUCOSE(AGE >30DAYS)2020-08-09 12:30:00 Test Item Value Reference Range Interpretation Comments POCT Glu (age>30days) (test code = 157 mg/dL 70-110 A 3342) Lab Interpretation (test code = Abnormal 72778-2) [facility] GLUCOSE(AGE >30DAYS)2020-08-09 12:30:00 Test Item Value Reference Range Interpretation Comments POCT Glu (age>30days) (test code = 157 mg/dL 70-110 A 3342) Lab Interpretation (test code = Abnormal 03871-4) [facility] GLUCOSE (AUTOMATED)2020-07-19 12:24:40 Test Item Value Reference Range Interpretation Comments POCT GLU (test code = 8146867509) 149 mg/dL 70-110 H Lab Interpretation (test code = Abnormal 92501-3) [facility] GLUCOSE (AUTOMATED)2020-07-19 12:24:40 Test Item Value Reference Range Interpretation Comments POCT GLU (test code = [id number]) 149 mg/dL 70-110 H Lab Interpretation (test code = Abnormal 96696-9) [facility] [id number] 12:00:00 Test Item Value Reference Range Interpretation Comments POCT Glu (age>30days) (test code = 149 mg/dL 70-110 A 3342) Lab Interpretation (test code = Abnormal 00475-7) [facility] [id number] 12:00:00 Test Item Value Reference Range Interpretation Comments POCT Glu (age>30days) (test code = 149 mg/dL 70-110 A 3342) Lab Interpretation (test code = Abnormal 42637-0) [facility] [id number] 07:35:00 Test Item Value Reference Range Interpretation Comments SODIUM (BEAKER) 139 meq/L 136-145 (test code = 381) POTASSIUM (BEAKER) 4.0 meq/L 3.5-5.1 (test code = 379) CHLORIDE (BEAKER) 101 meq/L 98-107 (test code = 382) CO2 (BEAKER) (test 31 meq/L 22-29 H code = 355) BLOOD UREA NITROGEN 20 mg/dL 7-21 (BEAKER) (test code = 354) CREATININE (BEAKER) 0.97 mg/dL 0.57-1.25 (test code = 358) GLUCOSE RANDOM 157 mg/dL 70-105 H (BEAKER) (test code = 652) CALCIUM (BEAKER) 9.4 mg/dL 8.4-10.2 (test code = 697) EGFR (BEAKER) (test 75 mL/min/1.73 ESTIMA GARCÍA GFR IS code = 1092) sq m NOT ACCURATE CREATININE CLEARANCE IN PREDICTING GLOMERULAR FILTRATION RATE . ESTIMATED GFR I S NOT APPLICABLE FOR DIALYSIS PATIEN TS. Distribution Collection Operator ID - SUDHIR [facility] W/PLT COUNT & AUTO [id number] 07:18:00 Test Item Value Reference Range Interpretation Comments WHITE BLOOD CELL COUNT (BEAKER) 7.5 K/ L 3.5-10.5 (test code = 775) RED BLOOD CELL COUNT (BEAKER) 4.84 M/ L 4.63-6.08 (test code = 761) HEMOGLOBIN (BEAKER) (test code = 13.8 GM/DL 13.7-17.5 410) HEMATOCRIT (BEAKER) (test code = 42.0 % 40.1-51.0 411) MEAN CORPUSCULAR VOLUME (BEAKER) 86.8 fL 79.0-92.2 (test code = 753) MEAN CORPUSCULAR HEMOGLOBIN 28.5 pg 25.7-32.2 (BEAKER) (test code = 751) MEAN CORPUSCULAR HEMOGLOBIN CONC 32.9 GM/DL 32.3-36.5 (BEAKER) (test code = 752) RED CELL DISTRIBUTION WIDTH 14.6 % 11.6-14.4 H (BEAKER) (test code = 412) PLATELET COUNT (BEAKER) (test 144 K/CU MM 150-450 L code = 756) MEAN PLATELET VOLUME (BEAKER) 10.4 fL 9.4-12.4 (test code = 754) NUCLEATED RED BLOOD CELLS 0 /100 WBC 0-0 (BEAKER) (test code = 413) NEUTROPHILS RELATIVE PERCENT 61 % (BEAKER) (test code = 429) LYMPHOCYTES RELATIVE PERCENT 25 % (BEAKER) (test code = 430) MONOCYTES RELATIVE PERCENT 10 % (BEAKER) (test code = 431) EOSINOPHILS RELATIVE PERCENT 3 % (BEAKER) (test code = 432) BASOPHILS RELATIVE PERCENT 1 % (BEAKER) (test code = 437) NEUTROPHILS ABSOLUTE COUNT 4.58 K/ L 1.78-5.38 (BEAKER) (test code = 670) LYMPHOCYTES ABSOLUTE COUNT 1.90 K/ L 1.32-3.57 (BEAKER) (test code = 414) MONOCYTES ABSOLUTE COUNT (BEAKER) 0.72 K/ L 0.30-0.82 (test code = 415) EOSINOPHILS ABSOLUTE COUNT 0.21 K/ L 0.04-0.54 (BEAKER) (test code = 416) BASOPHILS ABSOLUTE COUNT (BEAKER) 0.04 K/ L 0.01-0.08 (test code = 417) IMMATURE GRANULOCYTES-RELATIVE 0 % 0-1 PERCENT (BEAKER) (test code = 2801) POCT-GLUCOSE [id number] 08:05:00 Test Item Value Reference Range Interpretation Comments POC-GLUCOSE METER 171 mg/dL 70-110 H TESTED AT [facility] (BEAKER) (test code = PRAB[facility]UMARIAJOSE [facility] [employer] [facility] [employer] 1538) [address] RAD, CHEST, 2 [id number] 12:03:00Reason for Exam:->I73.89FINAL REPORT Chest, PA and lateral. History: I73.89. Comparison: 01/03/2016. Discussion: The cardiomediastinal silhouette and pulmonary vasculature are within normal limits. The lungs are clear without evidence of consolidation or effusion. There are no acute osseous abnormalities.The soft tissues are unremarkable. IMPRESSION: No acute cardiopulmonary abnormality. Signed: Elysia Jones MDReport Verified Date/Time: 03/09/2018 12:03:03 Reading Location: [address] Radiology Reading Room [id number] 11:34:00 Test Item Value Reference Range Interpretation Comments ACTIVATED CLOTTING TIME 307 sec TEST ED AT [facility] [address] (BEAKER) (test code = [place] 441) [address] CBC W/PLT COUNT & AUTO [id number] 07:37:00 Test Item Value Reference Range Interpretation [...] (BEAKER) (test code = 2801) BASIC METABOLIC [id number] 07:29:00 Test Item Value Reference Range Interpretation [...] 697) EGFR (BEAKER) (test 71 mL/min/1.73 ESTIMA GARCÍA GFR IS code = 1092) sq m NOT ACCURATE CREATININE CLEARANCE IN PREDICTING GLOMERULAR FILTRATION RATE . ESTIMATED GFR I S NOT APPLICABLE FOR DIALYSIS PATIEN TS. LIPID [id number] 09:48:00 Test Item Value Reference Range Interpretation Comments TRIGLYCERIDES (BEAKER) (test code = 103 mg/dL 540) CHOLESTEROL (BEAKER) (test code = 188 mg/dL 631) HDL CHOLESTEROL (BEAKER) (test code 62 mg/dL = 976) LDL CHOLESTEROL CALCULATED (BEAKER) 105 mg/dL (test code = 633) Triglyceride Reference Range: Low Risk <150 Borderline 150-199 High Risk 200- 499 Very High Risk >=500Cholesterol Reference Range: Low Risk <200 Borderline 200-239 High Risk >240HDL Cholesterol Reference Range: Low Risk >=60 High Risk <40LDL Cholesterol Reference Range: Optimal <100 Near Optimal 100-129 Borderline 130-159 High 160-189 Very High >=190COMPREHENSIVE METABOLIC [id number] 09:48:00 Test Item Value Reference Range Interpretation [...] 347) EGFR (BEAKER) (test 66 mL/min/1.73 ESTIMA GARCÍA GFR IS code = 1092) sq m NOT ACCURATE CREATININE CLEARANCE IN PREDICTING GLOMERULAR FILTRATION RATE . ESTIMATED GFR I S NOT APPLICABLE FOR DIALYSIS PATIEN TS. RAD, CHEST, 2 [id number] 09:08:00Reason for Exam:->CADReason for Exam:- >HTNReason for Exam:->HLDReason for Exam:->DVTReason for Exam:- >MRReason for Exam:->ABN EKGReason for Exam:->[id number] REPORT Chest, two views HISTORY: Cardiac disease COMPARISON: 01/03/2016 DIS CUSSION: Lungs are grossly clear without focal consolidation. Linear atelectasis at the left lung base. Cardiomediastinal silhouette is unchanged from prior examination. Mild tortuosity and ectasia of the thoracic aorta. Degenerative changes in the spine. No pleural effusion or pneumothorax. Visualized portions of the upper abdomen are unremarkable. IMPRESSION: No significant interval change. No acute cardiopulmonary abnormality. Signed: Scott Shields MDReport Verified Date/Time: 01/15/2017 09:08:07 Reading Location: [address] Radiology Reading Room CBC W/PLT COUNT & AUTO [id number] 08:51:00 Test Item Value Reference Range Interpretation [...] % 0-1 PERCENT (BEAKER) (test code = 0785)
[2021-12-19] MEDS ORDERED: KETOROLAC 30 MG/ML INJ ONE (19:32)
--- NOTE | 2021-12-19 20:03 | RAD REPORT ---
EXAM DESCRIPTION: CT - Head C Spine Cap Wo Con - 12/19/2021 7:38 pm CLINICAL HISTORY: Head and neck injury with chest and abdominal pain status post fall TECHNIQUE: Computed axial tomography of head, neck, chest, abdomen and pelvis obtained. IV and oral contrast not requested. Coronal and sagittal reconstruction performed. All CT scans are performed using dose optimization technique as appropriate and may include automated exposure control or mA/KV adjustment according to patient size. COMPARISON: CT chest 2013 FINDINGS: An intracranial bleed is not seen. The ventricles are normal in caliber. An extra-axial fluid collection is not noted. . Fluid within the sinuses/mastoids is not seen. A cervical fracture is not seen. No dislocation is noted. Calcification posterior longitudinal ligame nt, disc bulge and osteophytes result in moderate narrowing of the spinal canal C5-6 and C6-7 The evaluation of mediastinum, george, vessels, solid organs and bowel are limited secondary to the lac k of contrast administration. A mediastinal hematoma is not noted. A pleural effusion is not seen. A lung contusion is not present. The liver,spleen, pancreas, adrenals,kidneys and bladder do not demonstrate a traumatic injury IMPRESSION: No acute intracranial abnormality is seen. A cervical fracture is not visualized. If the patient continues have symptoms to suggest intracrania l/spinal cord pathology MRI be recommended No traumatic abnormality involving the chest/abdomen/pelvis.
[2021-12-19] MEDS ORDERED: CYCLOBENZAPRINE 10 MG TAB ONE (20:15)
--- NOTE | 2021-12-19 20:18 | ER ---
Nurse's Notes [facility] Name: John Perez Age: 76 yrs Sex: Male : 1945 Arrival Date: 12/19/2021 Time: 17:58 Bed 5 Private MD: Diagnosis: Fall on same level, unspecified;Contusion of back wall of thorax Presentation: 12/19 19:19 Chief complaint: Severe mid back pain after fall from standing while gardening this morning. Coronavirus screen: At this time, the client does not indicate any symptoms associated with coronavirus-19. Ebola Screen: No symptoms or risks identified at this time. Initial Sepsis Screen: Does the patient meet any 2 criteria? No. Patient's initial sepsis screen is negative. Does the patient have a suspected source of infection? No. Patient's initial sepsis screen is negative. Risk Assessment: Do you want to hurt yourself or someone else? Patient reports no desire to harm self or others. Onset of symptoms was December 19, 2021. 19:19 Method Of Arrival: Ambulatory 19:19 Acuity: ZULEMA 3 20:06 Care prior to arrival: None. Mechanism of Injury: Fall from standing position. Trauma lg3 event details: [facility] Trauma Activation: Not Applicable Physician: ED Physician; Name: ; Notified At: ; Arrived At: Physician: General Surgeon; Name: ; Notified At: ; Arrived At: Physician: Radiology; Name: ; Notified At: ; Arrived At: Physician: Respiratory; Name: ; Notified At: ; Arrived At: Physician: Lab; Name: ; Notified At: ; Arrived At: Historical: - Allergies: 19:21 No Known Allergies; hb - PMHx: 19:21 Diabetes - NIDDM; Hypertension; macular degeneration; Myocardial infarction; hb - Immunization history:: Adult Immunizations up to date. - Social history:: Smoking status: Patient denies any tobacco usage or history of. - Immunization history: Last tetanus immunization: unknown. Screenin:03 Abuse screen: Denies threats or abuse. Denies injuries from another. Nutritional lg3 screening: No deficits noted. Tuberculosis screening: No symptoms or risk factors identified. Fall Risk Fall in past 12 months (25 points). Ambulatory Aid- Crutches/Cane/Walker (15 pts). Gait- Weak (10 pts.). Total Thornton Fall Scale indicates High Risk Score (45 or more points). Side Rails Up X 2 Frequent Obs/Assessments Occuring As available patient and family educated on Fall Prevention Program and Strategies. Primary Survey: 20:01 NO uncontrolled hemorrhage observed. A: The client is awake and alert. The airway is lg3 patent. The client responds to verbal stimuli. Airway: patent. Breathing/Chest: Spontaneous respiratory effort, equal unlabored respirations, breath sounds clear bilaterally, regular pattern, symmetrical chest rise and fall. Respiratory effort: spontaneous, unlabored. Circulation: No external hemorrhage present. Regular and strong central pulse, skin warm/dry/normal color. Hemorrhage: No external hemorrhage noted. Disability Pupils are equal, round, reactive to light and accommodation. Client is alert. Client responds to verbal stimuli. Exposure/Environment: All clothing and personal items were removed. Forensic evidence collection is not deemed to be indicated at this time. Items placed in patient belonging bag. There is no evidence of uncontrolled external bleeding. 20:05 Reassessment Breathing: Spontaneous respiratory effort, equal unlabored respirations, lg3 breath sounds clear bilaterally, regular pattern with symmetrical chest rise and fall. Respiratory effort Spontaneous Circulation: No external hemorrhage noted. Regular and strong central pulse, skin warm/dry/normal color. Disability: Pupils Pupils are equal, round, reactive to light and accomodation. Alert Verbal stimuli. Secondary Survey: 20:39 HEENT: No deficits noted. Gastrointestinal: No deficits noted. : No deficits noted. lg3 No signs and/or symptoms were reported regarding the genitourinary system. Musculoskeletal: Reports pain in right low back and right mid back and left mid back and left low back. Assessment: 20:01 General: Appears in no apparent distress. uncomfortable, Behavior is calm, cooperative. lg3 Pain: Complains of pain in right low back and right mid back and left mid back and left low back Pain currently is 8 out of 10 on a pain scale. Quality of pain is described as crampy, heavy, sharp, squeezing, Noted to be grimacing, resistant to movement. Neuro: No deficits noted. Level of Consciousness is awake, alert, obeys commands, Oriented to person, place, time, situation. EENT: No deficits noted. No signs and/or symptoms were reported regarding the EENT system. Cardiovascular: No deficits noted. Denies chest pain, shortness of breath, Capillary refill < 3 seconds Clubbing of nail beds is absent JVD is absent Patient's skin is warm and dry. Respiratory: No deficits noted. Airway is patent Trachea midline Respiratory effort is even, unlabored, Respiratory pattern is regular, symmetrical, Breath sounds are clear bilaterally. Denies shortness of breath labored breathing. GI: No deficits noted. No signs and/or symptoms were reported involving the gastrointestinal system. Abdomen is round non-distended, Bowel sounds present X 4 quads. Abd is soft and non tender X 4 quads. : No deficits noted. No signs and/or symptoms were reported regarding the genitourinary system. Derm: No deficits noted. No signs and/or symptoms reported regarding the dermatologic system. Skin is intact, is healthy with good turgor, Skin is dry, Skin temperature is warm. Musculoskeletal: Circulation, motion, and sensation intact. Reports pain in right low back and right mid back and left mid back and left low back. Injury Description: fall. 20:38 Reassessment: Patient appears in no apparent distress at this time. No changes from lg3 previously documented assessment. Patient and/or family updated on plan of care and expected duration. Pain level reassessed. Patient is alert, oriented x 3, equal unlabored respirations, skin warm/dry/pink. Patient states symptoms have improved. Vital Signs: 19:19 BP 136 / 90; Pulse 91; Resp 18; Temp 97.9(TE); Pulse Ox 99% on R/A; Weight 127.01 kg; hb Height 6 ft. 3 in. (190.50 cm); Pain 10/10; 20:39 BP 119 / 64; Pulse 84; Resp 17 S; Pulse Ox 100% on R/A; lg3 20:44 BP 119 / 64; Pulse 85; Resp 16 S; aa9 19:19 Body Mass Index 35.00 (127.01 kg, 190.50 cm) hb [place] Coma Score: 20:04 Eye Response: spontaneous(4). Verbal Response: oriented(5). Motor Response: obeys lg3 commands(6). Total: 15. Trauma Score (Adult): 20:04 Eye Response: spontaneous(1); Verbal Response: oriented(1); Motor Response: obeys lg3 commands(2); Systolic BP: > 89 mm Hg(4); Respiratory Rate: 10 to 29 per min(4); Theresa Score: 15; Trauma Score: 12 ED Course: 17:58 Patient arrived in ED. rg4 18:03 Hussain Crockett DO is Attending Physician. ms3 18:13 Dennis Wren PA is PHCP. cp 19:21 Triage completed. hb 19:21 Arm band placed on. hb 19:39 Attending Physician role handed off by Hussain Crockett DO ms3 19:39 Raghavendra Pierre MD is Attending Physician. ms3 19:39 CT Traumagram (Head C Spine CAP wo con) In Process Unspecified. EDMS 20:03 Patient has correct armband on for positive identification. Placed in gown. Bed in low lg3 position. Call light in reach. Side rails up X2. Client placed on continuous cardiac and pulse oximetry monitoring. NIBP monitoring applied. Door closed. Noise minimized. Warm blanket given. 20:06 Tammie Vu, RN is Primary Nurse. lg3 20:06 Patient maintains SpO2 saturation greater than 95% on room air. lg3 20:06 Thermoregulation: warm blanket given to patient. lg3 20:38 No provider procedures requiring assistance completed. Patient did not have IV access lg3 during this emergency room visit. Administered Medications: 19:25 Drug: Ketorolac 15 mg Route: IM; Site: right deltoid; hb 20:45 Follow up: Response: No adverse reaction aa9 19:55 Not Given (Patient Refused): HYDROcodone-acetaminophen 5 mg-325 mg 1 tabs PO once rn 20:10 Drug: Flexeril (cyclobenzaprine) 10 mg Route: PO; aa9 20:44 Follow up: BP 119 / 64; Pulse 85 bpm; Resp 16 bpm Spontaneous aa9 20:44 Drug: Hydrocodone-Acetaminophen (10 mg-500 mg) 1 tabs Route: PO; aa9 20:44 Follow up: Response: No adverse reaction; RASS: Alert and Calm (0) aa9 Medication: 20:39 VIS not applicable for this client. lg3 Intake: 20:38 PO: 50ml (Water); Total: 50ml. lg3 Output: 20:38 Urine: 120ml (Voided); Total: 120ml. lg3 Outcome: 20:17 Discharge ordered by . rn 20:38 Discharged to home via wheelchair. lg3 20:38 Condition: stable 20:38 Discharge instructions given to patient, Instructed on discharge instructions, follow up and referral plans. medication usage, Demonstrated understanding of instructions, follow-up care, medications, Prescriptions given X 1. 20:39 Patient's length of stay in the Emergency Department was greater than 2 hours. lg3 20:45 Patient left the ED. aa9 Signatures: Dispatcher [employer] EDMS Raghavendra Pierre MD MD rn Page, Corey, PA PA cp Baxter, Heather, RN RN Analia Palomo rg4 Tammie Vu RN RN lg3 Hussain Crockett DO DO ms3 Mary Cordova, RN RN aa9
--- NOTE | 2021-12-19 20:18 | EDPHYS ---
Physician Documentation [facility] Name: John Perez Age: 76 yrs Sex: Male : 1945 Arrival Date: 12/19/2021 Time: 17:58 Bed 5 Private MD: ED Physician Raghavendra Pierre HPI: 12/19 19:31 This 76 yrs old Male presents to ER via Ambulatory with complaints of Fall Injury. ms3 19:31 76-year-old male with past medical history of diabetes, hypertension, macular ms3 degeneration, myocardial infarction, hyperlipidemia presents for back pain after falling. Patient states he was weeding his flower bed at approximately 11 AM and stood up, losing his balance, and falling on his back. Patient states he is having 10/10 sharp back pain and spasms. Patient denies loss of consciousness, Nausea, vomiting, weakness, numbness. Patient endorses taking Xarelto. . Historical: - Allergies: 19:21 No Known Allergies; hb - PMHx: 19:21 Diabetes - NIDDM; Hypertension; macular degeneration; Myocardial infarction; hb - Immunization history:: Adult Immunizations up to date. - Social history:: Smoking status: Patient denies any tobacco usage or history of. - Immunization history: Last tetanus immunization: unknown. ROS: 19:31 Constitutional: Negative for fever, and chills. Neck: Negative for injury, pain, and ms3 swelling, Cardiovascular: Negative for chest pain, and palpitations. Respiratory: Negative for shortness of breath, cough, wheezing, and pleuritic chest pain, Abdomen/GI: Negative for abdominal pain, nausea, vomiting, diarrhea, and constipation. 19:31 Back: Positive for of the left low back, left mid back, right mid back and right low back. 19:31 All other systems are negative. Exam: 19:31 Constitutional: This is a well developed, well nourished patient who is awake, alert, ms3 and in no acute distress. Head/Face: Normocephalic, atraumatic. Neck: Trachea midline, no cervical lymphadenopathy. Supple, full range of motion without nuchal rigidity, or vertebral point tenderness. No Meningismus. Chest/axilla: Normal chest wall appearance and motion. Nontender with no deformity. Cardiovascular: Regular rate and rhythm with a normal S1 and S2. No gallops, murmurs, or rubs. Normal PMI, no JVD. No pulse deficits. Respiratory: Lungs have equal breath sounds bilaterally, clear to auscultation and percussion. No rales, rhonchi or wheezes noted. No increased work of breathing, no retractions or nasal flaring. Abdomen/GI: Soft, non-tender, with normal bowel sounds. No distension or tympany. No guarding or rebound. No evidence of tenderness throughout. 19:31 Skin: Warm, dry with normal turgor. Normal color with no rashes, no lesions, and no evidence of cellulitis. Psych: Awake, alert, with orientation to person, place and time. Behavior, mood, and affect are within normal limits. 19:31 Back: pain, that is moderate, of the left low back, left mid back, right mid back and right low back, ROM is painful, normal spinal alignment noted, muscle spasm, is appreciated in the left low back, left mid back, right mid back and right low back. Vital Signs: 19:19 BP 136 / 90; Pulse 91; Resp 18; Temp 97.9(TE); Pulse Ox 99% on R/A; Weight 127.01 kg; hb Height 6 ft. 3 in. (190.50 cm); Pain 10/10; 20:39 BP 119 / 64; Pulse 84; Resp 17 S; Pulse Ox 100% on R/A; lg3 20:44 BP 119 / 64; Pulse 85; Resp 16 S; aa9 19:19 Body Mass Index 35.00 (127.01 kg, 190.50 cm) hb Theresa Coma Score: 20:04 Eye Response: spontaneous(4). Verbal Response: oriented(5). Motor Response: obeys lg3 commands(6). Total: 15. Trauma Score (Adult): 20:04 Eye Response: spontaneous(1); Verbal Response: oriented(1); Motor Response: obeys lg3 commands(2); Systolic BP: > 89 mm Hg(4); Respiratory Rate: 10 to 29 per min(4); [place] Score: 15; Trauma Score: 12 MDM: 19:31 Differential diagnosis: closed head injury, contusion, fracture, sprain, strain. ms3 Transition of care: After a detail discussion of the patient's case, care is transferred to Raghavendra Pierre MD. 19:38 Patient medically screened. ms3 20:12 Data reviewed: vital signs, nurses notes, radiologic studies, CT scan, and as a result, rn I will discharge patient. Counseling: I had a detailed discussion with the patient and/or guardian regarding: the historical points, exam findings, and any diagnostic results supporting the discharge/admit diagnosis, radiology results, the need for outpatient follow up, to return to the emergency department if symptoms worsen or persist or if there are any questions or concerns that arise at home. Special discussion: I discussed with the patient/guardian in detail that at this point there is no indication for admission to the hospital. It is understood, however, that if the symptoms persist or worsen the patient needs to return immediately for re-evaluation. ED course: CT scan without acute traumatic findings, will dc home with muscle relaxer, has pain meds at home. Cannot give anything stronger here because drove here himself and does not have a ride to pick him up. . 12/19 18:26 Order name: CT Traumagram (Head C Spine CAP wo con); Complete Time: 20:12 ms3 Administered Medications: 19:25 Drug: Ketorolac 15 mg Route: IM; Site: right deltoid; hb 20:45 Follow up: Response: No adverse reaction aa9 19:55 Not Given (Patient Refused): HYDROcodone-acetaminophen 5 mg-325 mg 1 tabs PO once rn 20:10 Drug: Flexeril (cyclobenzaprine) 10 mg Route: PO; aa9 20:44 Follow up: BP 119 / 64; Pulse 85 bpm; Resp 16 bpm Spontaneous aa9 20:44 Drug: Hydrocodone-Acetaminophen (10 mg-500 mg) 1 tabs Route: PO; aa9 20:44 Follow up: Response: No adverse reaction; RASS: Alert and Calm (0) aa9 Disposition Summary: 12/19/21 20:17 Discharge Ordered Location: Home rn Problem: new rn Symptoms: have improved rn Condition: Stable rn Diagnosis - Fall on same level, unspecified rn - Contusion of back wall of thorax rn Followup: rn - With: Private Physician - When: As needed - Reason: Recheck today's complaints, Re-evaluation by your physician Discharge Instructions: - Discharge Summary Sheet rn - Contusion rn - Fall Prevention in the Home, Adult rn Forms: - Medication Reconciliation Form rn - Thank You Letter rn - Antibiotic rn postpartum - Prescription Opioid Use rn Prescriptions: - Cyclobenzaprine 10 mg Oral Tablet - take 1 tablet by ORAL route every 8 hours As needed; 15 tablet; Refills: 0, rn Product Selection Permitted Signatures: Dispatcher [employer] Raghavendra Haney MD MD rn Baxter, Heather RN Tammie Sosa RN RN lg3 Hussain Crockett DO DO ms3 Mary Cordova RN RN aa9
[2021-12-19] MEDS ORDERED: HYDROCODONE/APAP 10/325 TAB ONE (20:39)
[2021-12-19 21:02] VITALS: TEMP 97.9
[2021-12-19 21:03] VITALS: BP 119/64; O2SAT 100
== END 2021-12-19 20:45 | disposition home or self-care (01) ==
LOC: ER 17:57
DX: S20.229A Contusion of unspecified back wall of thorax, initial encounter (principal); W18.30XA Fall on same level, unspecified, initial encounter; I10 Essential (primary) hypertension; E11.9 Type 2 diabetes mellitus without complications; Z79.01 Long term (current) use of anticoagulants
CPT/HCPCS: 70450; 71250; 72125

== ENCOUNTER 2022-04-26 11:00 | Day surgery (SDC) | payer OTHER ==
[2022-04-26 09:08] LABS: Absolute Lymphocytes (CBC) 2.4 K/uL (0.7-4.9); Hematocrit 48.5 % (39.6-49.0); MCV 89.4 fL (80-100); MPV 8.3 fL (7.6-11.3); RBC Red Blood Cell Count 5.42 M/uL (4.33-5.43)
[2022-04-26] MEDS ORDERED: NA CHLORIDE 0.9% 1,000 ML ONE (11:08)
[2022-04-26] MEDS ORDERED: CEFAZOLIN SODIUM 2 GM/VIAL ONE (11:08)
[2022-04-26] MEDS ORDERED: BUPIVACAINE 0.25% PF 30 ML VIAL ONE (11:22)
[2022-04-26] MEDS ORDERED: propofoL 200 MG/20 ML VIAL IV ONE (11:58)
[2022-04-26] MEDS ORDERED: FENTANYL CITR 100 MCG/2 ML ONE (11:58)
[2022-04-26] MEDS ORDERED: ROCURONIUM 50 MG/5 ML VIAL IV ONE (12:01)
[2022-04-26] MEDS ORDERED: MIDAZOLAM HCL 2 MG/2 ML INJ ONE (12:02)
[2022-04-26] MEDS ORDERED: LIDOCAINE 2% MPF 5 ML VIAL ONE (12:02)
[2022-04-26] MEDS ORDERED: ONDANSETRON 4 MG/2 ML VIAL ONE (12:02)
[2022-04-26] MEDS ORDERED: dexAMETHasone 4 MG/ML VIAL ONE (12:51)
--- NOTE | 2022-04-26 14:43 | P.OP ---
Preoperative diagnosis: Bilateral Inguinal Hernias Postoperative diagnosis: Bilateral Inguinal Hernias Primary procedure: Bilateral Inguinal Hernia Repair with mesh Anesthesia: GETA + Local Estimated blood loss: < 10cc Specimen: Hernia contents and cord lipoma Findings: Bilateral Indirect Inguinal Hernias Complications: None Transferred to: Recovery Room Condition: Good
[2022-04-26] MEDS ORDERED: KETOROLAC 30 MG/ML INJ ONE (14:47)
[2022-04-26 15:30] VITALS: TEMP 97.1; O2SAT 97
[2022-04-26] MEDS ORDERED: HYDROCODONE/APAP 7.5/325 MG TAB ONE (15:57)
[2022-04-26 16:12] VITALS: BP 131/63
--- NOTE | 2022-04-26 22:33 | OP ---
Date of Procedure: 04/26/2022 Surgeon: Yuriy Edouard MD, Preoperative Diagnosis: Bilateral inguinal hernias. Postoperative Diagnosis: Bilateral inguinal hernias. Procedure Performed: Bilateral inguinal hernia repair with mesh. Anesthesia: General endotracheal plus local with 0.25% Marcaine. Estimated Blood Loss: Less than 5 cc. Specimen: Hernia contents and cord lipomas. Findings: Bilateral indirect inguinal hernia, left greater than right. Complications: None. The patient was transferred to recovery room in good condition. Procedure In Detail: After informed consent was obtained, the patient was brought to the operating r oom and prepped and draped in the usual sterile fashion. After adequate anesthesia was achieved, I m roxana a low inguinal incision on the left side to start, down through the subcutaneous tissues. I diss ected through Camper fat and Rosario fascia to expose the external oblique aponeurosis. This was open ed sharply following the direction of the fibers. I then used Metzenbaum scissors to open it in its entirety. I then dissected down through additional plane of adipose tissue to expose the spermatic c ord and structures, which were encircled at this point. I removed some adipose tissue, which was in the plane and allowed for skeletonization of the spermatic cord and structures. I dissected medially to find a hernia defect, which is an indirect subtype through the inguinal ring containing significa nt amount of adipose tissue. This was ligated using a 0 Vicryl suture in an interrupted tie and retu rned it to the preperitoneal position. The hernia sac was then imbricated internally and a medium Ba rd PerFix plug and patch repair system was brought in and hydrated appropriately and I placed a plug in the preperitoneal space and then secured it circumferentially around with 3 sutures and had good a pposition of the tissues at this point. At this point, I sized the patch appropriately and secured i t to the medial and lateral shelving edge of the internal oblique aponeurosis as well as the undersur face of the inguinal ligament with good apposition of the tissue into pubic tubercle and medial aspec t. I reconstituted the deep inguinal ring using predominantly 2-0 PDS sutures. At this point, the C amper fat, Rosario fascia, and external oblique aponeurosis were closed en bloc using a running 3-0 Vi cryl suture with good approximation of tissues. The Camper fat and Rosario fascia were then irrigated at this point and suctioned out completely dry. Deep dermal planes were closed using interrupted 3- 0 Vicryl sutures and skin was closed with a 4-0 Monocryl in running fashion and Dermabond placed over top. The patient tolerated the procedure without evidence of any complication. At this point, I th en turned my attention to the right inguinal hernia. I made a low inguinal incision on the right dianna e down through the subcutaneous tissues. I dissected through Camper fat and Rosario fascia to expose the external oblique aponeurosis. This was opened sharply following the direction of the fibers. I then used Metzenbaum scissors to open it in its entirety. I then dissected down through additional p delmy of adipose tissue to expose the spermatic cord and structures, which were encircled at this poin t. I removed some adipose tissue, which was in the plane and allowed for skeletonization of the sper matic cord and structures. I dissected medially to find a hernia defect, which is an indirect subtyp e through the inguinal ring containing significant amount of adipose tissue. This was ligated using a 0 Vicryl suture in an interrupted tie and returned it to the preperitoneal position. The hernia sa c was then imbricated internally and a medium Bard PerFix plug and patch repair system was brought in and hydrated appropriately and I placed a plug in the preperitoneal space and then secured it circum ferentially around with 3 sutures and had good apposition of the tissues at this point. At this poin t, I sized the patch appropriately and secured it to the medial and lateral shelving edge of the inte rnal oblique aponeurosis as well as the undersurface of the inguinal ligament with good apposition of the tissue into pubic tubercle and medial aspect. I reconstituted the deep inguinal ring using pred ominantly 2-0 PDS sutures. At this point, the Camper fat, Rosario fascia, and external oblique aponeu rosis were closed en bloc using a running 3-0 Vicryl suture with good approximation of tissues. The Camper fat and Rosario fascia were then irrigated at this point and suctioned out completely dry. Sarah p dermal planes were closed using interrupted 3-0 Vicryl sutures and skin was closed with a 4-0 Monoc ryl in running fashion and Dermabond placed over top. The patient tolerated the procedure without evidence of any complication and transferred to PACU in good condition. All counts were george ect at the end of the case. FIDEL/FARHEEN Voice ID: [id number] Report ID: [id number]
--- NOTE | 2022-04-27 17:41 | EKG ---
Test Date: 2022-04-26 Test Time: 08:48:25 Front Office Administrator: JUDY MEASUREMENT RESULTS: Intervals: Rate: 68 [place]: 174 QRSD: 116 QT: 400 QTc: 425 [place]: P: 54 [place]: 174 QRS: 102 T: -8 INTERPRETIVE STATEMENTS: Normal sinus rhythm Rightward axis Inferior infarct, age undetermined Abnormal ECG Compared to ECG 07/21/2020 08:44:42 Right-axis deviation now present Ventricular premature complex(es) no longer present Myocardial infarct finding still present Electronically Signed On 04-27-22 17:39:44 [employer] by Jp Bradford
== END 2022-04-26 17:00 | disposition home or self-care (01) ==
LOC: OR 11:00
PROVIDERS: ATTEND Surgery
PROC: 0YUA0JZ Supplement Bilateral Inguinal Region with Synthetic Substitute, Open Approach (ICD-10-PCS; principal; 2022-04-26 13:30)
DX: K40.20 Bilateral inguinal hernia, without obstruction or gangrene, not specified as recurrent (principal); E11.9 Type 2 diabetes mellitus without complications; I10 Essential (primary) hypertension; I25.2 Old myocardial infarction
CPT/HCPCS: 93005; 85025; 80048; 36415; 82947 ×2; 49505; J2704; J1100; J2001; J2250; J3010; J7030; J2405; 88302

== ENCOUNTER 2022-07-15 09:38 | Day surgery (SDC) | payer OTHER ==
[2022-07-12 13:06] LABS: Potassium 4.4 mEq/L (3.5-5.1)
[2022-07-15] MEDS ORDERED: propofoL 200 MG/20 ML VIAL IV ONE (09:48)
[2022-07-15] MEDS ORDERED: LIDOCAINE 1% MPF 5 ML VIAL ONE (09:49)
[2022-07-15] MEDS: NA CHLORIDE 0.9% 1,000 ML ONE ×2 (10:30→12:18)
[2022-07-15 13:04] VITALS: TEMP 99.4
[2022-07-15 13:07] VITALS: BP 105/60; O2SAT 98
== END 2022-07-15 12:07 | disposition home or self-care (01) ==
LOC: OR 09:38
PROVIDERS: ATTEND Surgery
PROC: 0DBL8ZX Excision of Transverse Colon, Via Natural or Artificial Opening Endoscopic, Diagnostic (ICD-10-PCS; 2022-07-15)
PROC: 0DBN8ZX Excision of Sigmoid Colon, Via Natural or Artificial Opening Endoscopic, Diagnostic (ICD-10-PCS; 2022-07-15)
PROC: 0DBM8ZX Excision of Descending Colon, Via Natural or Artificial Opening Endoscopic, Diagnostic (ICD-10-PCS; principal; 2022-07-15 10:30)
DX: Z12.11 Encounter for screening for malignant neoplasm of colon (principal); D12.3 Benign neoplasm of transverse colon; D12.5 Benign neoplasm of sigmoid colon; D12.4 Benign neoplasm of descending colon; K64.8 Other hemorrhoids; N42.9 Disorder of prostate, unspecified; I10 Essential (primary) hypertension; I48.91 Unspecified atrial fibrillation; E11.40 Type 2 diabetes mellitus with diabetic neuropathy, unspecified; E78.00 Pure hypercholesterolemia, unspecified; I25.10 Atherosclerotic heart disease of native coronary artery without angina pectoris; I25.2 Old myocardial infarction; G47.33 Obstructive sleep apnea (adult) (pediatric); Z99.81 Dependence on supplemental oxygen; E66.9 Obesity, unspecified; Z68.35 Body mass index [BMI] 35.0-35.9, adult; Z95.5 Presence of coronary angioplasty implant and graft; Z95.828 Presence of other vascular implants and grafts; Z79.899 Other long term (current) drug therapy
CPT/HCPCS: 36415; 80048; 82947; 88305; J2001; J2704; J7030